=== PATIENT | female | born 1940 | race Caucasian/White ===

== ENCOUNTER 2024-07-11 19:40 | Inpatient (IN) | payer MEDICARE, SELFPAY ==
--- NOTE | ~2024-07-11 | CT_ITS ---
CTA chest PE protocol Ordering provider: Shashi Shipley MD History: 84 years Female with . sob, hypoxia . Comparison: None. Technique: CT angiogram chest was performed following timed intravenous injection of contrast. Thin s lice axial images and reformatted coronal images were obtained. Three dimensional reformatted images of the chest were also obtained using a [employer] workstation. . Automated exposure control and iterati ve reconstruction technique were employed. The dose-length product was 909.81 mGy-cm. 100 mL Omnipaqu e 350 was given IV. Findings: PULMONARY ARTERIES: No pulmonary embolus. VISUALIZED THORACIC INLET: Normal. MEDIASTINUM: Aorta/coronary arteries: Mild atheromatous disease. Heart/other: The heart is not enlarged. Lymph nodes: No mediastinal or hilar adenopathy. LUNGS: No pulmonary nodules or masses. No infiltrates or effusions. No pneumothorax. VISUALIZED UPPER ABDOMEN: Cholelithiasis. Otherwise, the visualized upper abdomen is normal. MUSCULOSKELETAL: Soft tissues: The superficial soft tissues are normal. Bones: Compression fracture of T7 and T11 vertebra is noted. T7 fracture is most likely acute. Verteb roplasty of T12 is noted with compression fracture. Age appropriate degenerative changes of the spine . Healing left ninth rib fracture is noted. Fracture of the left humerus proximal metaphysis. Deform ity of the left glenoid cavity. IMPRESSION: 1. No pulmonary embolism. 2. No acute cardiopulmonary pathology. 3. Cholelithiasis. 4. Healing left ninth rib fracture. 5. Highly suggestive acute fracture of the T7. 6. Fracture left proximal humerus. Reviewed, dictated and finalized at location A. TATION WORKER CLEANING MACHINERY
--- NOTE | ~2024-07-11 | XR_ITS ---
XR chest 1V portable Ordering provider: Shashi Shipley MD History: 84 years Female with . SOB . Comparison: None. FINDINGS: MEDIASTINUM: The cardiac silhouette is slightly enlarged. Congestive jm. LUNGS: No effusions or pneumothorax. Bilateral interstitial changes suggestive of pneumonitis versus edema. OTHER: Fracture in the left proximal humerus is noted which may be pathological. Clinical correlation advised. No free air under the diaphragm. IMPRESSION: Cardiomegaly with bilateral interstitial thickening suggestive of pneumonitis versus edema. Fracture in the left proximal humerus. Reviewed, dictated and finalized at location A. WASHING MACHINE TENDER IMPRESSION: Cardiomegaly with bilateral interstitial thickening suggestive of pneumonitis v ersus edema. Fracture in the left proximal humerus.
--- NOTE | ~2024-07-11 | XR_ITS ---
Left Shoulder Technique: AP and scapular Y views were obtained. Clinical History: Proximal humeral fracture Findings: There is a comminuted fracture of the surgical neck of left humerus, probably subacute, wit h probable some early callus formation present. There is significant displacement of the major distal fracture fragment by at least one full shaft width. There is mild AC joint degenerative change and m ild glenohumeral joint degenerative change.. Soft tissues are unremarkable. Impression: Comminuted, displaced, probable subacute fracture of the surgical neck of the left humerus. Reviewed, dictated and finalized at location M. LE HRMS CONSULTANT Impression: Comminuted, displaced, probable subacute fracture of the surgical neck of the l eft humerus.
--- NOTE | ~2024-07-11 | CT_ITS ---
EXAMINATION: CT BRAIN W/O DATE: 07/12/2024 04:27 INDICATION: Altered mental status TECHNIQUE: Computed tomography (CT) of the head was performed without intravenous contrast. The dose- length product was 681.00 mGy-cm. Automated exposure control and iterative reconstruction technique w ere employed. COMPARISON: No prior studies for comparison. FINDINGS: Generalized atrophy. There are scattered mild periventricular and subcortical white matter changes, most likely related to small vessel ischemic disease (microangiopathy). Basilar cisterns are patent. No acute intracranial hemorrhage, infarction, mass or mass effect. There is pneumatization o f the paranasal sinuses and mastoids without significant mucosal thickening. No depressed skull fract ures. No ventriculomegaly or midline shift. Midline sagittal images demonstrate a normal corpus callosum, c raniovertebral junction and sella turcica. Basilar cisterns are patent. Paranasal sinuses and mastoids are pneumatized. No depressed skull fractures. IMPRESSION: 1. No acute intracranial abnormality. Reviewed, dictated and finalized at location A. MOUNTER
[2024-07-11 19:46] VITALS: BP 101/48; PULSE 71; RESP 14; O2SAT 98
--- NOTE | 2024-07-11 20:55 | ECG_ITS ---
Test Date: 2024-07-11 23:47:29 Measurements Intervals [place] Rate: 79 P: 73 MN: 166 QRS: 68 QRSD: 90 T: 58 QT: 348 QTc: 401 Interpretive Statements SINUS RHYTHM EARLY PRECORDIAL R/S TRANSITION BASELINE ARTIFACT- I, II, III, AVR, AVL, AVF, V1-V6 BORDERLINE ECG No previous ECG available for comparison Electronically Signed On 07-12-2024 07:15:29 MEDICAL OFFICE REP by Davis Rey D.O.
[2024-07-11 21:00] VITALS: O2SAT 96
--- OUTSIDE RECORDS SUMMARY | 2024-07-11 21:20 | XMS_ITS | Data Portability ---
Author Organization [facility], [facility] Address [address] [address] Care Team Providers Care Photo Engraver Name Role Phone CHRISTINE GONZALEZ Primary Care Provider Unavailabl e Assessment No assessment recorded. Plan of Treatment Reminders Order Date Submit Date Provider Last Modified By Organization Details Last Modified Time Details Appointments None recorded. Lab vitamin D, 25-hydrox y, total, serum - Non-Fasti ng [place] [facility], [address], [place], [address], 9 20:01:37 testoster one, free, serum - [place]Fast[place] ng [place] [facility], [address], [place], [address], 9 20:01:38 testoster one, total, serum - Non-Fasti ng [place] [facility], [address], [place], [address], 9 20:01:37 CBC w/ auto diff [facility], [address], [place], [address], 9 20:01:37 Referral None recorded. Procedures None recorded. Surgeries None recorded. Imaging None recorded. Medication Orders None recorded. Patient TargetsNo targets recorded. Patient InstructionsNo instructions recorded. Reason for Referral None Reported. Results Created Date Observation Date Name Description Value Unit Range Abnormal Flag Note LastModifiedBy Organization Detail LastModifiedTime 09/01/1909/03/2018 CBC w/ auto diff white blood cell count 6.8 thous and/u L 3.8-10 .8 normal Not Available [address], [address], 09/03/2018 20:01:36 09/01/19 19 09/03/2018 CBC w/ auto diff red blood cell count 3.91 luba on/uL 3.80-5 .10 normal Not Available [address], [address], 09/03/2018 20:01:36 09/01/19 19 09/03/2018 CBC w/ auto diff hemoglobin 12.1 g/dL 11.7-1 5.5 normal Not Available [address], [address], 09/03/2018 20:01:36 09/01/1909/03/2018 CBC w/ auto diff hematocrit 37.6 % 35.0-4 5.0 normal Not Available [address], [address], 09/03/2018 20:01:36 09/01/1909/03/2018 CBC w/ auto diff MCV 96.2 fL 80.0-1 00.0 normal Not Available [address], [address], 09/03/2018 20:01:36 09/01/1909/03/2018 CBC w/ auto diff MCH 30.9 pg 27.0-3 3.0 normal Not Available [address], [address], 09/03/2018 20:01:36 09/01/1909/03/2018 CBC w/ auto diff MCHC 32.2 g/dL 32.0-3 6.0 normal Not Available [address], [address], 09/03/2018 20:01:36 09/01/19 19 09/03/2018 CBC w/ auto diff RDW 13.1 % 11.0-1 5.0 normal Not Available [address], [address], 09/03/2018 20:01:36 09/01/19 19 09/03/2018 CBC w/ auto diff platelet count 251 thous and/u L 140-40 0 normal Not Available [address], [address], 09/03/2018 20:01:36 09/01/19 19 09/03/2018 CBC w/ auto diff MPV 10.0 fL 7.5-12 .5 normal Not Available [address], [address], 09/03/2018 20:01:36 09/01/19 19 09/03/2018 CBC w/ auto diff absolute neutrophils 4556 cells /uL 1500-7 800 normal Not Available [address], [address], 09/03/2018 20:01:36 09/01/19 19 09/03/2018 CBC w/ auto diff absolute lymphocytes 1523 cells /uL 850-39 00 normal Not Available [address], [address], 09/03/2018 20:01:36 09/01/19 19 09/03/2018 CBC w/ auto diff absolute monocytes 551 cells /uL 200-95 0 normal Not Available [address], [address], 09/03/2018 20:01:36 09/01/19 19 09/03/2018 CBC w/ auto diff absolute eosinophils 163 cells /uL 15-500 normal Not Available [address] [place], [address], 09/03/2018 20:01:36 09/01/1909/03/2018 CBC w/ auto diff absolute basophils 7 cells /uL 0-200 normal Not Available [address] [place], [address], 09/03/2018 20:01:36 09/01/1909/03/2018 CBC w/ auto diff neutrophils 67 % normal Not Available [address] [place], [address], 09/03/2018 20:01:36 09/01/1909/03/2018 CBC w/ auto diff lymphocytes 22.4 % normal Not Available [address] [place], [address], 09/03/2018 20:01:36 09/01/1909/03/2018 CBC w/ auto diff monocytes 8.1 % normal Not Available [address] [place], [address], 09/03/2018 20:01:36 09/01/1909/03/2018 CBC w/ auto diff eosinophils 2.4 % normal Not Available [address] [place], [address], 09/03/2018 20:01:36 09/01/1909/03/2018 CBC w/ auto diff basophils 0.1 % normal Not Available [address] [place], [address], 09/03/2018 20:01:36 09/01/1909/03/2018 vitam in D, 25-hy droxy , total , serum vitamin D,25-oh,tota l,ia 47 NG/mL 30-100 normal Vitam in D Statu s 25-OH Vitam in D: Defic iency : <20 ng/mL Insuf ficie ncy: 20 - 29 ng/mL Optim al: > or = 30 ng/mL For 25-OH Vitam in D testi ng on patie nts on D2-mc pplem entat ion and patie nts for whom quant itati on of D2 and D3 fract ions is requi red, the [facility] Ass[facility] eD(TM ) 25-OH VIT D, (D2,D 3), LC/MS /MS is recom kenny d: order code 24176 (caryl ents >2yrs ). For more infor maribell castaneda on this test, go to: http: //[facility] tana [email or web address].petr stdia gnost ics.c om/fa q/FAQ 163 (This link is being provi ded for infor matio nal/e ducat ional purpo ses only. ) Not Available [facility] [address] [place], [address], 09/03/2018 20:01:37 09/01/19 19 09/03/2018 testo stero ne, total , serum testosterone , total, MS 10 NG/dL 2-45 Agustin a from J Clin Inves t 1974: 53:81 9-828 and J Clin Endoc rinol Metab 1973; 36:11 32-11 42. Men with clini edith signi fican t hypog onada l sympt oms and testo stero ne value s repea tedly in the range of the 200-3 00 ng/dL or less, may benef it from testo stero ne treat ment after adequ ate risk and benef its couns eling . For addit ional infor kelsey encinas e refer to http: //[facility] tana [email or web address].petr stdia gnost ics.c om/fa q/FAQ 165 (This link is being provi ded for infor matio nal/ educa lorelei l purpo ses only. ) This test was devel oped and its aaron tical perfo rmanc e sandro cteri stics have been deter mined by [facility] Pablo Yeei gibran Garrido cia. It has not been clear ed or appro myrna by the [place] Food and Drug Admin istra tion. This assay has been valid ated pursu ant to the CLIA regul ation s and is used for clini david purpo ses. Not Available [facility] [address] [place], [address], 09/03/2018 20:01:37 09/01/19 19 09/03/2018 testo stero ne, free, serum testosterone , free 0.9 pg/mL 0.3-5. 0 This test was devfridea booth and its aaron tical perfo rmanc e sandro cteri stics have been deter mined by [facility] Pablo Garrido cia. It has not been clear ed or appro myrna by the Food and Drug Admin istra tion. This assay has been valid ated pursu ant to the CLIA regul ation s and is used for clini david purpo ses. Not Available [facility] [address], [place], [address], 09/03/2018 20:01:38 Result Notes None recorded. Problems Name Problem SNOMED Code Status Onset Date Resolution Date Notes Provider Name and Address Organization Details Recorded Time Arthritis 7915846 Active 2018 Jacqueline Mueller [facility], [employer] 9 13:27:09 Hypertensive disorder 68716517 Active 2018 Jacqueline venegas [employer], [employer] 9 13:27:16 Problem Notes None recorded. Procedures Surgical History Date Name Laterality Status Provider Name and Address Organization Details Recorded Time 9 Generic Procedure completed RONALD LARSON [address], [place], [address], [employer] [employer] 08/23/2018 15:00:00 Imaging Results None recorded. Procedure Notes None recorded. Medical Equipment None Reported. Allergies No known drug allergies Medications Name Sig Start Date Stop Date Status Note LastModified by Organization Details LastModified Time meloxicam 15 mg tabs active Not Available Not Available Not Available amlodipine besylate 5 mg tabs active Not Available Not Available Not Available omeprazole 40 mg cpdr active Not Available Not Available N ot Available celecoxib 200 mg caps active Not Available Not Available Not Available sulindac 200 mg tabs active Not Available Not Available Not Available atorvastatin calcium 20 mg tabs active Not Available Not Available Not Available levothyroxin e sodium 75 mcg tabs active Not Available Not Available Not Available amlodipine besylate 2.5 mg tabs active Not Available Not Available Not Available citalopram hydrobromide 20 mg tabs active Not Available Not Available N ot Available sulfamethoxa zole/trimeth oprim ds 800-160 mg tabs active Not Available Not Available Not Available hydrocodone/ acetaminophe n 5-325 mgtabs active Not Available Not Available Not Available tramadol hcl 50 mg tabs active Not Available Not Available N ot Available diazepam 10 mg tabs active Not Available Not Available Not Available metoprolol succinate er 50 mg tb24 active Not Available Not Available N ot Available atorvastatin calcium 10 mg tabs active Not Available Not Available Not Available hydrocodone 5 mg-acetamino phen 325 mg tablet Take 1 tablet every 6 hours by oral route as needed for 7 days. 2018 active Not Available Not Available Not Avai lable diazepam 10 mg tablet Take 1 tablet(s) 30 mins PRIOR to appointment PRN and repeat as directed by physician. 2018 active Not Available Not Available Not Avai lable Vitals Date Recorded Heart rate Body height Body mass index (BMI) Body weight Systolic blood pressure Diastolic blood pressure Provider Name and Address Organization Details Last Updated DateTime 9 66 /min 157.48 cm 45.7 kg/m2 667164. 09 g 160 mm[Hg] 82 mm[Hg] [facility] 9 13:04:24 Social History None recorded. Functional Status None recorded. Mental Status None recorded. Family History Nothing Reported. Medical History No medical history recorded. Gynecological HistoryNo gynecological history recorded. Obstetrics History GPAL:G 0 P 0 0 0 0 Past Encounters Encounter ID Performer Location Encounter Start Date Encounter Closed Date Diagnosis/Indication Diagnosis SNOMED-CT Code Diagnosis ICD10 Code Diagnosis Note [id number] RONALD LARSON [facility] [address] [facility] ,[address] [facility] [place] [id number] 08/23/2018 12:51:29 08/23/2018 14:00:12 Knee pain 35656719 M25.561 Malaise and fatigue 2717 [address] R53.83 Z01.812 R53.81 M89.9 M94.9 Osteoarthr itis of right knee joint 9505120316 93507 M17.11 Localized, primary osteoarthritis of the ankle and/or foot 880442628 M19.079 Osteoarthr itis of foot joint 569004946 M19.079 At today's office visit the patient's diagnosis and treatment options were discussed in great detail. The patient was provided with informatio n to make an informativ e decision on the next steps for treatment. The patient has tried several conservati ve measures including but not limited to PT, rest, ice, and NSAIDs with no beneficial relief. Given the imaging results and the duration of the patient's symptoms I would recommend BMAC with fat as they are an excellent candidate. We discussed the need for PRP at [facility] the 12-week myrna. The risk and benefits were discussed with the patient as well as functional and pain improvemen t outcomes. The procedure was discussed in detail as well as the recovery period. We discussed screening with R3 and its importance . We also discussed obtaining labs to ensure the patient is optimized for maximal results. I also discussed other conservati ve options. The patients case and treatment plan were reviewed in detail with Dr. Aldridge. PLAN: [facility]/fat to right knee (lateral tibial plateau fracture, medial OA, pes and IT pain) right ankle ( osteoarthr itis of the tibiotalar joint, subtalar joint, talonavicu lar joint and navicular cuboid) All questions were answered, the patient understood the treatment plan. Health Concerns Section Related Observation LastModified by Organization Detai ls LastModified Time None Recorded Concern Status LastModified by Organization Details LastModified Time None Recorded Advance Directives Directive None Recorded Payers Encounter Date Sequence Insurance Name Policy Number Policy Barone Covered Member ID Barone Member ID Guarantor Name 08/23/2018 1 [place]ICARE [place]: [id number] Sherri Anne [id number] Sherri Anne 08/23/2018 2 [employer] (MEDICARE SUPPLEMENT) Sherri Anne [id number] Sherri Anne Notes Date Note Type Note Provider Name and Address Organization Details Recorded Time 08/23/2018 text/html 78-year-old fema le who comes in today complaining of right ankle pain and right knee pain has been ongoing for the last 2 years. She had an injury to the right knee 11 years ago which she stain sustained a lateral tibial plateau fracture. She did well until approximately 2 years ago and the pain started to progressively get worse. In regards to the knee she has medial-sided knee pain that is constant aching and sharp. She rates her pain as an 8/10. She states that she also experiences stiffness and giving way of the knee she states that her knee bothers her all the time when she walks and improves when she sits. She has tried rest, anti-inflammatories, Tylenol, pain medications and corticosteroid injections which originally helped her however the last couple have not helped her for very long. She states she has gotten about 1 month relief out of corticosteroid injections the last of which were in February of 2018. She also has pain in the right ankle. The pain in her right ankle she states is progressively getting worse. She states the pain is constant, aching and sharp. She also experiences weakness and stiffness in the ankle and hurts her most whenever she stands and walks and is improved whenever she sits. She has tried corticosteroid injections also which once again not been very beneficial. She has noticed decreased range of motion. She rates her pain in the ankles an 8/10. RONALD LARSON [address], [place], [address], [facility], [facility] 08/23/2018 16:23:01 OBGyn Episode No OBEpisode recorded.
--- OUTSIDE RECORDS SUMMARY | 2024-07-11 21:20 | XMS_ITS | Clinical Summary ---
Author Organization [facility] Address [address] [place] [address] Care Team Providers Care Manager Local Name Role Phone Jeet Mirza MD Unavailable Mauri Cannon MD Unavailable Kevin Will MD PhD Unavailable + Benji Stark MD Unavailable Miscellaneous, Not In File Primary Care Provider Unavailable Allergies No known active allergies Medications metoprolol XL (TOPROL-XL) 50 mg 24 hr tablet take 1 Tablet by ORAL route every day 90 3 6 Active aspirin 81 mg tablet take 1 tablet by oral route every day 0 [address] (VOLTAREN) 50 mg EC tablet Take 1 tablet (50 mg total) by mouth 3 (three) times a day 0 9 Active gabapentin (NEURONTIN) 100 mg capsule Take 2 capsules (200 mg total) by mouth 2 (two) times a day 0 Active cyanocobalamin (Vitamin B-12) 1,000 mcg tablet Take 1 tablet (1,000 mcg total) by mouth every morning Active furosemide (LASIX) 20 mg tablet Take 1 tablet (20 mg total) by mouth daily 2 Active levothyroxine (SYNTHROID) 75 mcg tablet Take 1 tablet (75 mcg total) by mouth daily 90 tablet 3 3 Active vibegron 75 mg tablet Take 75 mg by mouth daily 3 Active amLODIPine (NORVASC) 5 mg tablet TAKE 1 TABLET(5 MG) BY MOUTH DAILY 90 tablet 3 4 Active omeprazole (PriLOSEC) 40 mg capsule TAKE 1 CAPSULE(40 MG) BY MOUTH DAILY 90 capsule 3 4 Active cholecalciferol (Vitamin D3) 400 unit capsule daily Active spironolactone (ALDACTONE) 25 mg tablet Take 1 tablet (25 mg total) by mouth daily 4 Active vit A,C and B-omsfwu-hudxbb ls (OCUVITE with LUTEIN) 300 mcg-200 mg-27 mg-2 mg tablet Take 1 tablet by mouth 2 (two) times a day Active atorvastatin (LIPITOR) 10 mg tablet TAKE 1 TABLET(10 MG) BY MOUTH DAILY 100 tablet [address] (CYMBALTA) 60 mg capsule TAKE 1 CAPSULE(60 MG) BY MOUTH DAILY 100 capsule 4 Active FeroSuL 325 mg (65 mg iron) tablet TAKE 1 TABLET BY MOUTH DAILY WITH BREAKFAST 30 tablet 4 Active oxyCODONE (ROXICODONE) 5 mg immediate release tabletIndicatio ns:Pain Take 1 tablet (5 mg total) by mouth every 4 (four) hours as needed for pain 15 tablet 5 Active acetaminophen (TYLENOL) 325 mg tablet Take 2 tablets (650 mg total) by mouth every 6 (six) hours 5 06/18/19 Active Problems Problem Noted Date Diagnosed Date Osteopenia of lumbar spine 05/17/2024 Chronic arthritis 05/17/2024 Wound of right leg 05/17/2024 BMI 45.0-49.9, adult 05/17/2024 Fracture of surgical neck of left humerus with n onunion 05/17/2024 Macrocytic anemia 05/17/2024 Compression fracture of body of thoracic vertebr a (CMS/HCC) 05/16/2024 Chest wall muscle strain, initial encounter 04/15 Strain of thoracic back region 05/09/2024 Lumbar strain, initial encounter 05/09/2024 Fall, initial encounter 11/07/2023 Humerus fracture 11/07/2023 Leukocytosis 11/07/2023 Pulmonary nodules 08/28/2023 Assessment & Plan (08/28/2023 2:20 PM CDT): Small bilaterally Never a smoker No need for follow-up Abnormal breast finding 08/28/2023 Assessment & Plan (08/28/2023 2:20 PM CDT): We have discussed the abnormality identified on her CT chest She will call primary care for further follow-up Pulmonary hypertension 08/28/2023 Assessment & Plan (08/28/2023 2:20 PM CDT): Likely secondary to group 2 disease No evidence of pulmonary diagnois with normal pulmonary function testing, negative sleep study, normal CT chest I have recommended she follow-up with her head bookkeeper for repeat echocardiogram Chronic left shoulder pain 08/10/2023 Assessment & Plan (08/10/2023 12:08 PM CDT): Discussed options including x-ray, physical therapy, referral to laboratory specialist. She declines referral today. She is agreeable to x-ray and therapy. She can not drive due to macular degeneration. Requires assistance of another person to leave the home. Will order home health physical therapy to evaluate and treat. Class 3 severe obesity due t o excess calories with serious comorbidity and body mass index (BMI) of 45.0 to 49.9 in adult 08/10/2023 Assessment & Plan (08/10/2023 12:08 PM CDT): Encourage heart healthy diet and chair yoga. Pure hypercholesterolemia 03/27/2023 Osteoarthritis of left subtalar joint 03/27/2023 Nonrheumatic aortic valve stenosis 03/27/2023 Overview (03/27/2023): 03/29 echo: EF 70-75%, grade 1 diastolic dysfunction, mild , Vmax 2.6, trace AI, mild TR, RVSP 45 08/29 echo: EF 65%, diastolic dysfunction with increased LAP, mild , Vmax 2.8, gradients 31/17 mmHg, GIRISH 1.1 cm , mild MR, RVSP 36 5/20 echo: EF 60%, mild SANDEEP, moderate , Vmax 3.5, gradients 49/28 mmHg, VTI ratio 0.28, trace AI/MR/TR, RVSP 39, mild MAC, mild-moderate non-mobile plaque in arch Neuropathy 03/27/2023 Hx of hysterectomy 03/27/2023 SHARP (dyspnea on exertion) 03/27/2023 DJD (degenerative joint disease) 03/27/2023 Diastolic dysfunction 03/27/2023 Chronic diastolic heart failure 03/27/2023 Low ferritin level 08/02/2022 Recurrent major depression 07/25/2022 Pseudophakia of both eyes 04/23/2021 Assessment & Plan (03/14/2024 3:18 PM CDT): Stable. Observe. Assessment & Plan (08/09/2023 5:04 PM CDT): Stable. Observe. Assessment & Plan (03/08/2023 9:45 AM CDT): Stable. Observe. Assessment & Plan (06/30/2022 4:31 PM AIR TRAFFIC CONTROL OPERATOR): Stable. Observe. Assessment & Plan (02/10/2022 3:46 PM CDT): s/p CE/PCIOL OD - Doing well with progressive add. Strict monocular precautions. - Reviewed signs/symptoms endophthalmitis, RT/RD; patient to call immediately if any worsening vision, pain, redness, flashes/floaters/curtains. - monocular precautions. F/u in 6 months for DFE -continued scheduled f/u with retina team Assessment & Plan (07/08/2021 9:14 AM AIR TRAFFIC CONTROL OPERATOR): POM #2 s/p CE/PCIOL OD - Doing well, patient likely needing stronger near add with progressive lens and higher add segment. Reprinted MRx. - Reviewed signs/symptoms endophthalmitis, RT/RD; patient to call immediately if any worsening vision, pain, redness, flashes/floaters/curtains. - monocular precautions. F/u in 6 months for DFE Assessment & Plan (06/04/2021 9:50 AM AIR TRAFFIC CONTROL OPERATOR): Recent CEIOL OD with Dr. Stark 04/2021 Doing well with vision improvement Assessment & Plan (05/26/2021 10:11 AM AIR TRAFFIC CONTROL OPERATOR): POM #1 s/p CE/PCIOL OD - Doing well, patient happy with vision but with light sensitivity, does not appear to have any rebound inflammation. Will treat surface dryness and f/u in 6 weeks to assess for improvement - finish pred forte taper - Reviewed signs/symptoms endophthalmitis, RT/RD; patient to call immediately if any worsening vision, pain, redness, flashes/floaters/curtains. - updated MRx today Assessment & Plan (04/28/2021 3:41 PM AIR TRAFFIC CONTROL OPERATOR): POW #1 s/p CE/PCIOL OD - Doing well - D/C ofloxacin in 1 week - Taper prednisolone QID -> TID -> BID -> qday, per week - Reviewed signs/symptoms endophthalmitis, RT/RD; patient to call immediately if any worsening vision, pain, redness, flashes/floaters/curtains. - Avoid lifting/bending/swimming for one more week. Protective eyewear during day. Okay to discontinue Clark shield at night. - RTC 1 month for DFEx, MRx Assessment & Plan (04/23/2021 2:29 PM AIR TRAFFIC CONTROL OPERATOR): POD #1 s/p CE/PCIOL OD - Doing well, VA will be limited by optic neuropathy but still has central corneal edema - Prednisolone QID OD - Ofloxacin QID OD - Reviewed signs/symptoms endophthalmitis, RT/RD; patient to call immediately if any worsening vision, pain, redness, flashes/floaters/curtains - No lifting/bending/swimming. Clark shield while sleeping, protective eyewear during day. - RTC 1 week Age-related macular degeneration, dry, right eye 09/18/2020 Assessment & Plan (03/14/2024 3:17 PM CDT): Stable OCT. Unfortunately, acuity has declined some from last visit. No exudative disease present. Repeat DFE q6mos with mac OCT. Low vision referral Assessment & Plan (08/09/2023 5:02 PM CDT): Stable exam and OCT today. No signs of active exudative disease. Repeat in 6 mos. Assessment & Plan (03/08/2023 9:44 AM CDT): Stable on exam and OCT today. Monocular precautions. Monocular self monitoring. Continue areds. F/u in 6 months. Will complete drivers license field and mac OCT at f/u. Assessment & Plan (06/30/2022 4:22 PM AIR TRAFFIC CONTROL OPERATOR): Stable on exam and OCT today. Continue to follow q4-6 mos. Sooner prn. Assessment & Plan (06/04/2021 9:49 AM AIR TRAFFIC CONTROL OPERATOR): Stable, remains dry observe Assessment & Plan (11/27/2020 10:20 AM CDT): Stable exam and OCT today. Limited vision due to NAION. Dry age-related macular degeneration (AMD) right eye (OD) stable. MInimal, stable IRF on OCT OS. Will monitor. Seeing Dr. Dumont for NAION. Assessment & Plan (09/18/2020 10:53 AM CDT): Dry AMD OD with h/o ION OD Vision okay today, no fluid on OCT Continue to monitor She may consider areds micro nutrient supplementation after she sees in the tutoring clinician. Exudative age-related macular degeneration of le ft eye 09/18/2020 Assessment & Plan (03/14/2024 3:17 PM CDT): Limited visual potential. Monocular precautions reviewed. Assessment & Plan (08/09/2023 5:03 PM CDT): Stable without signs of active exudative disease today. Assessment & Plan (03/08/2023 9:44 AM CDT): No recurrence of exudative disease on OCT today. Observe. Monocular precautions. Discussed good lighting to help with reading tasks. Pt plans to get updated lighting in her reading spot at home. Assessment & Plan (06/30/2022 4:22 PM AIR TRAFFIC CONTROL OPERATOR): Stable on exam and OCT. Assessment & Plan (12/03/2021 10:37 AM CDT): Stable, limiting vision OS especially No fluid now, one injection remote Assessment & Plan (06/04/2021 9:59 AM AIR TRAFFIC CONTROL OPERATOR): Stable today with possibly minimal IRF Continue observation Visual prognosis in the left eye is poor due to the optic neuropathy and we have a p.r.n. approach for this eye. Her cataract surgeries look really good. Assessment & Plan (11/27/2020 10:20 AM CDT): Stable exam and OCT today. Limited vision due to NAION. Dry age-related macular degeneration (AMD) right eye (OD) stable. MInimal, stable IRF on OCT OS. Will monitor. Seeing Dr. Dumont for NAION. Assessment & Plan (09/18/2020 10:49 AM CDT): Pt states she had CE/IOL OD in 01/[address] Mirza, she noticed sudden onset vision loss in 06/2020. She was seen at [facility] diagnosed with exduative AMD OS, treated with intravitreal anti-VEGF. She states there was resolution of fluid but vision remained poor. Today her vision OS is significantly decreased with optic nerve pallor, OCT with inner retinal thinning, significant GCC loss without IRF/SRF. Small CDR OU with crowded disc appearance. Exam findings and imaging are concerning for optic neuropathy- may be sequential NAION OS given history of similar event OD. Would recommend evaluation with Dr. Dumont (Neuro-ophthalmology). Information for Low vision also provided. RTC 2 months to assess for recurrent fluid Ischemic optic neuropathy of both eyes Assessment & Plan (03/14/2024 3:18 PM CDT): Visual field limited due to hx of NAION OU. Long discussion regarding driving and likely not legal to drive based on last field by Dr. Dumont in 2020. Pt understands that she's not legal to drive. Low vision referral. Assessment & Plan (08/09/2023 5:04 PM CDT): Vision limited due to NAION OU. Long discussion regarding driving and likely not legal to drive based on last field by Dr. Dumont in 2020. Needs esterman field to confirm. Pt had difficulty with positioning today. Will re-attempt at f/u. Pt understands that she's likely not legal to drive. Will discuss further at f/u. Monocular precautions given limited visual potential OS. Assessment & Plan (03/08/2023 9:45 AM CDT): Hx of sequential naion with significantly reduced acuity OS and field OU. Offered consult with [facility] low vision clinic but pt defers for now. Feels ADLs are being met. Struggles with reading fluency. Discussed good lighting. F/u in 6 mos for drivers license VF. Assessment & Plan (06/30/2022 4:30 PM AIR TRAFFIC CONTROL OPERATOR): Hx of sequential naion with significantly reduced acuity OS and field OU. Offered consult with [facility] low vision clinic but pt defers for now. Feels ADLs are being met. Struggles with reading fluency. Discussed good lighting. Assessment & Plan (06/04/2021 9:50 AM AIR TRAFFIC CONTROL OPERATOR): Stable, limiting vision OS especially Previously seen by Dr. Dumont and now plan for observation Assessment & Plan (01/21/2021 8:27 AM CDT): -patient still needs to obtain nutritional deficiency labs. Has scheduled follow up with Dr. Dumont Assessment & Plan (11/27/2020 10:44 AM CDT): Dr. Dumont has commented on a small pituitary microadenoma or cyst and she is following with her internists and might get serial MRIs in the future for monitoring of these lesions. I am pleased that Dr. Dumont was able to evaluate her Assessment & Plan (09/18/2020 10:54 AM CDT): Her episode in the right eye was several years ago and the left eye more recently. Given the bilateral optic neuropathy of the ischemic nature, I will have her see Dr. Dumont in the near future. She does not have any symptomatology on either of these episodes suggestive of giant cell arteritis. She is hypertensive and is currently on medication. Multiple thyroid nodules 06/03/2020 Assessment & Plan (06/03/2020 5:52 PM AIR TRAFFIC CONTROL OPERATOR): I looked at Mrs. Anne 's thyroid under ultrasound today I compared these images with the ones that I did in May 2019 I do not see any significant changes in the size of these small nodules, in each lobe. I would not see the need for an FNA biopsy at this time. Discussed this with the patient and she agrees I will see her again in a year Cardiac risk counseling 04/16/2020 At risk for acute ischemic cardiac event 020 Aortic arch atherosclerosis 10/10/2019 Age-related osteoporosis wit hout current pathological fracture 02/06/2019 Gastro-esophageal reflux disease without esophag itis 02/06/2019 Vitamin D deficiency 02/06/2019 Closed wedge compression fracture of T7 vertebra 02/06/2019 Spinal stenosis, lumbar mathew on, without neurogenic claudication 02/06/2019 Radiculopathy, lumbar region 02/06/2019 Moderate single current epis ode of major depressive disorder 02/06/2019 Intervertebral disc stenosis of neural canal of lumbar region 02/06/2019 History of loop recorder 09/27/2018 Primary osteoarthritis of both knees 08/21/2017 Mixed hyperlipidemia 07/27/2017 Assessment & Plan (02/06/2019 1:21 PM CDT): - Home atorvastatin Assessment & Plan (02/05/2019 2:40 PM CDT): - Home atorvastatin Assessment & Plan (02/04/2019 4:47 PM CDT): - Home atorvastatin Assessment & Plan (02/03/2019 10:47 AM CDT): - Home atorva Assessment & Plan (02/02/2019 8:59 AM CDT): - Home atorva Assessment & Plan (02/01/2019 10:45 PM CDT): - Home atorva Morbid obesity with BMI of 40.0-44.9, adult 07/13 Assessment & Plan (06/06/2019 10:01 AM AIR TRAFFIC CONTROL OPERATOR): Benefits of weight loss discussed. Reviewed recommendations for daily intake & activity 20-30 minutes/day. She was counseled on the importance of maintaining a healthy weight and the risks of obesity. Weight loss recommended. I have recommended beginning daily aerobic activity. Patient was encouraged to start at a comfortable pace and distance and increase as tolerated. I encouraged decrease caloric restriction in order to promote weight loss. I recommended calorie tracking carina, my fitness Pal, which is a free download on a smart phone. Thyroid nodule 01/31/2017 Assessment & Plan (02/22/2022 4:05 PM CDT): Thyroid ultrasound done today does not show any changes in size or appearance of the right nodule No further follow-up will be necessary Assessment & Plan (02/22/2022 9:57 AM CDT): I looked at Mrs Anne's thyroid under ultrasound The described nodule, in the upper right lobe, is around 1.2 cm in its largest dimension, hypoechoic with without any microcalcification. Given the long standing of this nodule and tis relatively small size I explained to Ms. Anne that the risk of a malignancy is very small. I gave her 2 options. The 1st would be to do an FNA biopsy now and if benign just forget about this nodule or the other is to continue monitoring for another 1 or 2 years. She opts for the latter I wiill see her in a year here in my office Prediabetes 06/17/2015 Overview (02/04/2019): Overview: 06/30 glucose 113 (fasting) Osteoporosis 09/28/2013 Overview (08/18/2016): OSTEOPOROSIS NOS HTN (hypertension) 09/28/2013 Overview (08/18/2016): BENIGN HYPERTENSION Assessment & Plan (08/10/2023 12:07 PM CDT): Normotensive. Continue amlodipine, metoprolol. Continue spironolactone/hydrochlorothiazide. Will continue to monitor. Assessment & Plan (02/06/2019 1:19 PM CDT): - Cont home amlodipine and metoprolol XL Assessment & Plan (02/05/2019 2:37 PM CDT): - Cont home amlodipine and metoprolol XL Assessment & Plan (02/04/2019 4:44 PM CDT): - Cont home amlodipine and metoprolol XL Assessment & Plan (02/03/2019 10:47 AM CDT): - Cont home amlodipine and metop Assessment & Plan (02/02/2019 8:59 AM CDT): - Cont home amlodipine and metop Assessment & Plan (02/01/2019 10:44 PM CDT): - Cont home amlodipine and metop Disorder of intervertebral disc 04/18/2013 Overview (08/18/2016): Lumbar disc disease Hypothyroidism 04/18/2013 Overview (08/20/2016): Hypothyroid Assessment & Plan (02/21/2023 10:02 AM CDT): Chronic, well controlled Continue Levothyroxine, 75 mcg daily Assessment & Plan (02/22/2022 4:04 PM CDT): Continue levothyroxine 75 mcg daily Assessment & Plan (02/06/2019 1:19 PM CDT): - Home levothyroxine Assessment & Plan (02/05/2019 2:39 PM CDT): - Home levothyroxine Assessment & Plan (02/04/2019 4:44 PM CDT): - Home levothyroxine Assessment & Plan (02/03/2019 10:47 AM CDT): - Home levothyroxine Assessment & Plan (02/02/2019 8:59 AM CDT): - Home levothyroxine Assessment & Plan (02/01/2019 10:45 PM CDT): - Home levothyroxine Calculus of gallbladder 12/27/2011 Overview (08/20/2016): Gallstones Resolved Problems Problem Noted Date Diagnosed Date Resolved Date Combined forms of age-relate d cataract of right eye 09/18/2020 06/04/2021 Assessment & Plan (02/24/2021 11:34 AM CDT): Assessment and Plan 1. Visually Significant Cataract of the right eye, 3+ NS, monocular patient -discussed that vision potential on the right limited because of NAION and dry AMD. She does get to 20/30 with pinhole potential acuity at near. - R/B/A of surgery discussed in detail with patient including but not limited to infection, bleeding, persistent inflammation, diplopia, ptosis, macular edema, need for further surgeries or procedures, need for spectacle correction after surgery, possible loss of vision, possible loss of the eye, and risks of anesthesia. We discussed her visual field prior to surgery and that she may have more difficulty with lights after surgery. - The patient understands these risks and wishes to proceed. - Target refraction was discussed with the patient. We discussed near, distance, and monovision; we also discussed multifocal and toric lenses. Discussed possible glare/halo following multifocal lenses. Discussed The patient elected to target plano Planned Operation: CE/IOL of the right eye eye Time: 40 Anesthesia: MAC Local: topical Special equipment: consider trypan 23 Hr Stay?: No Preop meds: None Med Clearance: CPAP IOL Master: done today Additional perioperative testing/procedure needed?: Patient will attempt to meet with low vision prior to surgery. Okay to schedule . . Assessment & Plan (01/21/2021 8:25 AM CDT): Assessment and Plan 1. Visually Significant Cataract of the right eye, 3+ NS, monocular patient -discussed that vision potential on the right limited because of NAION and dry AMD - R/B/A of surgery discussed in detail with patient including but not limited to infection, bleeding, persistent inflammation, diplopia, ptosis, macular edema, need for further surgeries or procedures, need for spectacle correction after surgery, possible loss of vision, possible loss of the eye, and risks of anesthesia. -we will obtain records from Dr. Mirza to see if she has better documented VA after NAION episode, prior to development of visually significant catarat -patient will return to see me in 1 month for CARTER test and to discuss surgery again and lens choice. Emphasized strict monocular precautions with patient. . Assessment & Plan (11/27/2020 10:44 AM CDT): She sees better through a pinhole even though she has ischemic optic neuropathy and I feel that with cataract extraction the vision might improve. I will have her see Dr. Akers Assessment & Plan (09/18/2020 10:48 AM CDT): May be visually significant now that pt is functionally monocular. Requested that she discuss whether CE/IOL would be appropriate with her primary Insurance Account Assistant Dr. Mirza. Abscess of right thigh 06/06/201910/01 Assessment & Plan (06/06/2019 10:01 AM AIR TRAFFIC CONTROL OPERATOR): Healing well at this time. Patient instructed to keep area clean and dry. Notify office with absolutely any worsening symptoms. Patient and caregiver verbalized understanding agreed to plan of care at this time they will notify office with absolutely any changes. Abscess 05/23/2019 06/06/2019 Assessment & Plan (05/23/2019 1:09 PM AIR TRAFFIC CONTROL OPERATOR): Abscess to right medial thigh 2 x 3 cm trace serosanguineous drainage. No need for I & D at this time will begin course of bactrim DS BID x 10 due to location of abscess. Instructed to return in 1 week for reevaluation. Patient instructed to keep area clean and dry. Dressing changed in office today and wound culture sent. Notify office with absolutely any concerns including but not limited to fever, chills, increased redness, swelling or drainage. Patient verbalized understanding and agreed to plan of care at this time. Constipation 02/06/2019 06/06/2019 Assessment & Plan (02/06/2019 1:22 PM CDT): Secondary to opioid medications -Scheduled docusate, senna and miralax -Will give bisacodyl suppository & add on daily PRN enemas -Also PRN lactulose until BM YOUNG (acute kidney injury) 02/05/2019 Assessment & Plan (02/06/2019 1:19 PM CDT): Resolved, Baseline Cr ~0.8-1.00 and had rise to 1.37 on 02/05 -Suspect secondary to NSAID use due to low back pain -Avoid further NSAIDs in the future -Cr back to 0.95 this AM -CTM, renally dose meds Assessment & Plan (02/05/2019 2:39 PM CDT): Baseline Cr ~0.8-1.00 and had rise to 1.37 this AM, BUN 41 and urine output decreased overnight to 600 cc -Suspect secondary to NSAID use due to low back pain -Toradol d/c and will avoid further NSAIDs this admission -Will hydrate with 1 L NS today and repeat BMP around 13:00 -CTM, renally dose meds NSVT (nonsustained ventricular tachycardia) 02/04/2019 06/06/2019 Overview (02/04/2019): Overview: stress nuclear: 99% maximal heart rate, no ischemia, anterior attenuation, EF 51% 10/26 stress echo 3:49--94% maximal heart rate, no ischemia, hyperdynamic LVEF, PVCs 03/29 event recorder: VT vs AF/aberrancy by second hand report 04/28 EKG: SR at 72, normal ijntervals 07/28 stress echo 3:32--86% maximal heart rate, no ischemia, normal LVEF Intractable back pain 02/01/20192019 Assessment & Plan (02/06/2019 1:21 PM CDT): Recent T12 kyphoplasty. 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 Neuro intact. No cord issues - Ortho spine consulted -> nonoperative. - Scheduled APAP & gabapentin. PRN oxycodone - Gabapentin increased to 700 BID (in light of renal function). Oxycodone increased to 10 mg q4 hours PRN from 5 mg home dose - Pain is controlled when patient is lying down but still uncontrolled with ambulation/standing - Repeat flexion/extension films of T/L-spine without changes or new fractures - Pain management consulted, appreciate recommendations - S/p lidocaine infusion & Epidural spinal injections on 02/05 - No further procedures/interventions per pain management and patient's main hindrance to improvement is her resistance to get out of bed. Discussed how therapy was a large component of her pain control and she needs to be out of the bed for the majority of the day. She voices understanding and is wanting to work on therapy/walking more - PT/OT recommending SNF placement, plan to discharge to facility today - Scheduled bowel regimen Assessment & Plan (02/05/2019 2:40 PM CDT): Recent T12 kyphoplasty. 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 Neuro intact. No cord issues - Ortho spine consulted -> nonoperative. - Scheduled APAP & gabapentin. PRN oxycodone - Gabapentin increased to 700 BID (in light of renal function). Oxycodone increased to 10 mg q4 hours PRN from 5 mg home dose - Pain is controlled when patient is lying down but still uncontrolled with ambulation/standing - Repeat flexion/extension films of T/L-spine without changes or new fractures - Pain management consulted, appreciate recommendations -->started lidocaine infusion (02/04), likely to remain on 24 hours - Epidural spinal injections on 02/05 - PT/OT recommending SNF placement, social work consult for assistance - Scheduled bowel regimen Assessment & Plan (02/04/2019 4:47 PM CDT): Recent T12 kyphoplasty. 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 Neuro intact. No cord issues - Ortho spine consulted -> nonoperative. - Scheduled APAP & gabapentin. PRN toradol & oxycodone - Gabapentin increased to 700 BID (in light of renal function). Oxycodone increased to 10 mg q4 hours PRN from 5 mg home dose - Pain is controlled when patient is lying down but still uncontrolled with ambulation/standing - Repeat flexion/extension films of T/L-spine without changes or new fractures - Pain management consulted, appreciate recommendations -->plan to start lidocaine infusion today (02/04) & monitor for response. - Lidocaine level 24 hours after initiation of gtt - PT/OT recommending SNF placement, social work consult for assistance - Bowel regimen started today given increase use of opioids Assessment & Plan (02/03/2019 10:46 AM CDT): - Recent T12 kyphoplasty. 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 Neuro intact. No cord issues - Ortho spine -> nonoperative. - APAP, toradol, oxycodone, gabapentin, lidocaine patches. Gabapentin increased to 600 BID (in light of renal function). Oxycodone increased to 10 mg q4 hours PRN pain (patient's home dose). - Pain is controlled when patient is lying down but still uncontrolled with any type of movement including sitting. Per patient had difficulty working with therapy due to severe pain. - Pain management consulted, appreciate recommendations - PT/OT evaluation and likely placement Assessment & Plan (02/02/2019 8:59 AM CDT): - Recent T12 kyphoplasty. 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 Neuro intact. No cord issues - Ortho spine -> nonoperative. - APAP, toradol, oxycodone, gabapentin, lidocaine patches. - Pain is controlled when patient is lying down - PT/OT evaluation and likely placement Assessment & Plan (02/01/2019 10:49 PM CDT): - Recent T12 kyphoplasty. 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 Neuro intact. No cord issues - Ortho spine -> nonoperative. - APAP, toradol, oxycodone. 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 0307/27/2017 06/06/2019 Breast mass, right 11/10/2015 0 Overview (02/04/2019): Overview: Plan core Retinal artery branch occlusion of right eye 6 09/18/2020 Overview (02/04/2019): Overview: 1991 sudden loss of right eye upper field vision -> carotid duplex: OK per patient Osteoarthrosis involving mor e than one site but not generalized 09/28/2013 01/31/2017 Overview (08/18/2016): OSTEOARTHROSIS-MULT SITE Adiposity 04/18/2013 06/06/2019 Overview (08/18/2016): Obesity (BMI 30-39.9) Morbid obesity 04/18/2013 10/02/2019 Overview (08/20/2016): Morbid obesity with BMI of 40.0-44.9, adult Cataract, right eye 01/21/20 21 Pseudophakia, left eye 06/29 Assessment & Plan (01/21/2021 8:19 AM CDT): -will obtain records from Dr Mirza Encounters Date Type Department Care Team Description 05/19/2024 10:30 AM AIR TRAFFIC CONTROL OPERATOR - 05/19/2024 11:59 PM AIR TRAFFIC CONTROL OPERATOR Hospital Encounter [facility] Emergency, Room R Discharge Disposition: Discharge to home or self care 05/16/2024 4:41 PM AIR TRAFFIC CONTROL OPERATOR - 05/19/2024 10:28 AM AIR TRAFFIC CONTROL OPERATOR Hospital Encounter [facility] IMU [address] [place] [address] Laly Cazares MD Compression fracture of body of thoracic vertebra (CMS/HCC) (HCC) (Primary Dx); Osteopenia of lumbar spine; Chronic arthritis; 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, unspecified fracture morphology, subsequent encounter; Wound of right lower extremity, subsequent encounter; Chronic diastolic heart failure ([facility]); Primary hypertension; Macrocytic anemia; Pure hypercholesterolemia ; Acquired hypothyroidism; Gastro-esophageal reflux disease without esophagitis; BMI 45.0-49.9, adult ([facility]) Discharge Disposition: Discharge to an Rehab facility 05/16/2024 4:05 PM AIR TRAFFIC CONTROL OPERATOR - 05/16/2024 11:59 PM AIR TRAFFIC CONTROL OPERATOR Hospital Encounter [facility] AMBULANCE BILLING Emergency, Room R Discharge Disposition: Discharge to home or self care 05/09/2024 3:07 PM AIR TRAFFIC CONTROL OPERATOR - 05/09/2024 9:21 PM AIR TRAFFIC CONTROL OPERATOR Emergency [facility] Emergency Department [address] [place] [address] Closed wedge compression fracture of T7 vertebra, initial encounter ([facility]) (Primary Dx); Chest wall muscle strain, initial encounter; Strain of thoracic back region; Lumbar strain, initial encounter Discharge Disposition: Discharge to home or self care 05/09/2024 12:59 PM AIR TRAFFIC CONTROL OPERATOR - 05/09/2024 11:59 PM AIR TRAFFIC CONTROL OPERATOR Hospital Encounter [facility] AMBULANCE BILLING Emergency, Room R Discharge Disposition: Discharge to home or self care from Last 3 Months Immunizations Immunization Administration Dates Next Due Influenza, Quad, Adjuvantate d, Intramuscular 02/23/2021 Influenza, Quadrivalent, Hig h Dose, Preservative Free, Intrr 03/01/2023,2020 Influenza, Split 04/12/2012 Influenza, Trivalent, High D ose, Split, Preservative Free, Intramuscular 02/05/2018,01/31/2017,02/26/2016 Influenza, Trivalent, IM (MDV) 03/10/2017,2013,02/14/2013 Influenza, Trivalent, Split, Preservative Free, Intradermal 03/04/2015 Influenza, Unspecified 02/12/2022,2021(Deferred: Patient Refused),01/13/2022(Deferred: Patient Refused),02/26/2019,01/18/2019(Deferre d: Patient Refused),02/06/2018,02/05/2018, 015 Moderna SARS-CoV-2 Monovalen t Vaccination (12+ YRS) 03/15/2021,07/01/2020,06/03/2020 Pneumococcal Conjugate 7-Valent 02/17/2014 Pneumococcal Conjugate PCV 13 10/14/2015 Pneumococcal Polysaccharide PPV23 04/12/2012 Tdap 06/07/2023 ZOSTER LIVE 02/17/2014,08/24/2010 ZOSTER Recombinant 01/14/2021,10/29/2020 Surgical History Surgery Date Site/Laterality Comments TOTAL ABDOMINAL HYSTERECTOMY W/ BILATERAL SALPINGOOPHORECTOMY 05/15/1999 - 05/14/2000 Hysterectomy, total abdominal, BSO CATARACT EXTRACTION W/ INTRAOCULAR LENS IMPLANT 01/14/2020 - 02/12/2020 Left KYPHOPLASTY 05/15/2018 - 05/14/2019 BREAST LUMPECTOMY 05/15/2017 - 05/14/2018 Left radial scar, outer breast..RIGHT 2016 radial scar, near areola BREAST BIOPSY 11/19/2015 Right Medical History Medical History Date Comments Arthritis Arthritis Hypertension Hypertension Disorder of thyroid Thyroid dise ase Hx of colonoscopy 10/28/2016 Hyperlipidemia GERD (gastroesophageal reflux disease) Hypothyroidism Coughing Snoring Cataract, right eye Pseudophakia, left eye Pulmonary nodules 08/28/2023 Abnormal breast finding 08/28/2023 Family History Medical History Relation Name Comments Hypertension Brother Stroke Brother Thyroid disease Brother Hypertension Father Stroke Father Breast cancer Father's Sister Breast cancer Mother Cause of : Cancer -breast/Cancer, breast; Depression Mother Diabetes Mother Anesthesia problems Neg Hx Ovarian cancer Neg Hx Thyroid cancer Neg Hx Relation Name Status Comments Brother Father Father's Sister Mother (Age 79) Social History Tobacco Use Types Packs/Day Years Used Date Smoking Tobacco: Never Passive Smoke Exposure: Past Smokeless Tobacco: Never Tobacco Cessation:Counseling Given: Not Answered Alcohol Use Standard Drinks/Week Comments Not Currently 0 (1 standard drink = 0.6 oz pur e alcohol) OASIS D0700: Social Isolation Answer Da te Recorded Frequency of experiencing loneliness or isolatio n Never 08/10/2022 OASIS A1250: Transportation Answer Date Recorded Lack of Transportation (Medical) No 08/10/2022 Lack of Transportation (Non-Medical) No 08/10/2022 Patient Unable or Declines to Respond No 08/10/2022 OASIS B1300: Health Literacy Answer Agustin e Recorded Frequency of needing help to read materials from doctor or pharmacy Sometimes 08/10/2022 [facility] Utilities Answer Date Recorded In the past 12 months has e [employer], gas, oil, or water company threatened to shut off services in your home? No 11/09/2023 Social Connection and Isolat ion Panel [NHANES] Answer Date Recorded In a typical week, how many times do you talk on the phone with family, friends, or neighbors? More than three times a week 11/09/2023 How often do you get togethe r with friends or relatives? Once a week 11/09/2023 How often do you attend chur ch or oriental orthodox services? Never 11/09/2023 Do you belong to any clubs o r organizations such as sabianist groups, unions, fraternal or athletic groups, or school groups? No 11/09/2023 How often do you attend meet ings of the clubs or organizations you belong to? Never 11/09/2023 Are you , , di vorced, , never , or living with a partner? 11/09/2023 AUDIT-C Answer Date Recorded Q1: How often do you have a drink containing alc ohol? Monthly or less 05/16/2024 Q2: How many drinks containi ng alcohol do you have on a typical day when you are drinking? 1 or 2 05/16/2024 Q3: How often do you have si x or more drinks on one occasion? Never 05/16/2024 Overall Financial Resource Strain (CARDIA) Answe r Date Recorded How hard is it for you to pa y for the very basics like food, housing, medical care, and heating? Not hard at all 11/09/2023 PHQ-2 Answer Date Recorded PHQ-2 Total Score (If total score is 3 or more points, staff should administer the PHQ-9) 0 09/22/2023 Hunger Vital Sign Answer Date Recorded Within the past 12 months, y ou worried that your food would run out before you got the money to buy more. Never true 11/09/19 24 Within the past 12 months, t he food you bought just didn't last and you didn't have money to get more. Never true 11/09/2023 PRAPARE - Transportation Answer Date Re corded In the past 12 months, has l ack of transportation kept you from medical appointments or from getting medications? No 10/14 In the past 12 months, has l ack of transportation kept you from meetings, work, or from getting things needed for daily living? No 11/09/2023 Housing Stability Vital Sign Answer Agustin e Recorded In the last 12 months, was t here a time when you were not able to pay the mortgage or rent on time? No 11/09/2023 In the past 12 months, how m any times have you moved where you were living? 0 11/09/2023 At any time in the past 12 m [facility], were you homeless or living in a long-term (including now)? No 11/09/2023 Personal Safety Answer Date Recorded Have you ever been in or are you currently in a harmful physical or emotional relationship or is someone making you feel afraid or unsafe? Denies 05/16/2024 Comments No Sex and Gender Information Value Date Recorded Sex Assigned at Not on file Legal Sex Female 11:51 PM AIR TRAFFIC CONTROL OPERATOR Gender Identity Not on file Sexual Orientation Not on file Obstetrics History Para Term AB IAB SAB Ectopic Multiple Livin g Live Births 1 1 1 Date Outcome GA Total Labor Labor/2nd/3rd Weight Sex Type Anes PTL Leidy A1 A5 Name Clin Term Last Filed Vital Signs Vital Sign Reading Time Taken Comments Blood Pressure 112/70 05/19/2024 8:36 AM AIR TRAFFIC CONTROL OPERATOR Pulse 62 05/19/2024 7:27 AM AIR TRAFFIC CONTROL OPERATOR Temperature 36.4 C (97.6 F) 05/19/2024 7:27 AM AIR TRAFFIC CONTROL OPERATOR Respiratory Rate 20 05/19/2024 7:27 AM AIR TRAFFIC CONTROL OPERATOR Oxygen Saturation 89% 05/19/2024 7:2 7 AM AIR TRAFFIC CONTROL OPERATOR rn notified Inhaled Oxygen Concentration - - Weight 121.7 kg (268 lb 4.8 oz) 05/16/2024 9:30 PM AIR TRAFFIC CONTROL OPERATOR Height 157.5 cm (5' 2 ) 05/16/2024 9:30 PM AIR TRAFFIC CONTROL OPERATOR Body Mass Index 49.07 05/16/2024 9:30 PM AIR TRAFFIC CONTROL OPERATOR Plan of Treatment Health Maintenance Due Date Last Done Comments Hepatitis B Screening 1958 Colon Cancer Screening-Colonoscopy 10/28/20212016 Covid-19 Vaccine (2023-2 5 season) 2024 03/15/2021, 07/01/2020, 06/03/2020 Influenza Vaccine (#1) 2024 3, 02/12/2022, 02/23/2021, Additional history exists Osteoporosis Screening-Bone Density Scan 02/17/2024 02/16/2022, 05/03/2019, 08/02/2016 Well Visit 65+ 03/01/2024 03/01/2023, 10/2020, 04/16/2020, Additional history exists Breast Cancer Screening-Mammogram 04/10/2024 04/10/2023, 02/16/2022, 11/27/2017, Additional history exists Depression Screening 09/21/2024 09/22/2023, 03/01/2023, 11/29/2022, Additional history exists Fall Risk Assessment 05/19/2025 05/19/2024, 09/22/2023, 08/10/2023, Additional history exists DTaP/Tdap/Td Vaccine (2 - Td or Tdap) 06/07/2033 06/07/2023 Pneumococcal vaccine 65+ Completed 016, 02/17/2014, 04/12/2012 Zoster Vaccine Completed 01/14/2021, 10/13, 02/17/2014, Additional history exists Medical Devices Implanted Type Area Adoption Manager Device Identifier Shelf Expiration Date Model / Serial / Lot [employer]ron Surgical [id number] Acrysof Iq Natural Stableforce Acrysert 6mm 13mm 1 Piece Foldable - [id number] - [id number] Implanted:Qty: 1 on 04/22/2021 by Benji Stark MD at [facility] Lens Right: Eye [employer] [id number] 11/17/2025 [id number].24 0 / [id number] / 0 Procedures Procedure Name Priority Date/Time Associated Diagnosis Comments COVID-19 CORONAVIRUS RNA Routine 05/19/2024 8:35 AM AIR TRAFFIC CONTROL OPERATOR AEROBIC AND ANAEROBIC CULTURE AND GRAM STAIN Routine 05/17/2024 9:31 AM AIR TRAFFIC CONTROL OPERATOR EGFR Routine 05/17/2024 6:51 AM AIR TRAFFIC CONTROL OPERATOR DIFFERENTIAL AUTO Routine 05/17/2024 6:5 1 AM AIR TRAFFIC CONTROL OPERATOR CBC WITH AUTO DIFFERENTIAL Routine 05/17/2024 6:51 AM AIR TRAFFIC CONTROL OPERATOR BASIC METABOLIC PANEL Routine 05/17/2024 6:51 AM AIR TRAFFIC CONTROL OPERATOR XR CHEST 1 VIEW IP Routine 05/16/2024 10:49 PM AIR TRAFFIC CONTROL OPERATOR DIFFERENTIAL AUTO STAT 05/16/2024 5:1 1 PM AIR TRAFFIC CONTROL OPERATOR CBC WITH AUTO DIFFERENTIAL STAT 05/16/2024 5:11 PM AIR TRAFFIC CONTROL OPERATOR EGFR STAT 05/16/2024 5:11 PM AIR TRAFFIC CONTROL OPERATOR COMPREHENSIVE METABOLIC PANEL STAT 05/16/2024 5:11 PM AIR TRAFFIC CONTROL OPERATOR CT THORACIC SPINE WO CONTRAST ED 05/09/2024 6:50 PM AIR TRAFFIC CONTROL OPERATOR CT LUMBAR SPINE WO CONTRAST ED 05/09/2024 6:50 PM AIR TRAFFIC CONTROL OPERATOR CT CHEST WO CONTRAST ED 05/09/2024 6:50 PM AIR TRAFFIC CONTROL OPERATOR SCREENING MAMMOGRAM BILATERAL W REMI Schedule Routine, Read Routine (OP Routine) 04/10/2023 1:57 PM AIR TRAFFIC CONTROL OPERATOR Screening mammogram, encounter for DEXA AXIAL SKELETON BONE DENSITY 1 OR MORE SITES Schedule Routine, Read Routine (OP Routine) 02/16/2022 2:01 PM CDT Osteoporosis, unspecified osteoporosis type, unspecified pathological fracture presence COLONOSCOPY REPORT 10/28/2016 from Last 3 Months or Most Recently Relevant to Health Maintenance Results * COVID-19 Coronavirus RNA Nasopharyngeal (05/19/2024 8:35 AM AIR TRAFFIC CONTROL OPERATOR) COVID-19 RNA Negative Negative Nasopharyngeal 05/19/2024 8: 35 AM AIR TRAFFIC CONTROL OPERATOR 05/19/2024 8:44 AM AIR TRAFFIC CONTROL OPERATOR Narrative MICHAEL TABOR (VLADIMIR) - 05/19/2024 9:58 AM AIR TRAFFIC CONTROL OPERATOR Is the patient experiencing any symptoms consistent with COVID (eg. Fever, cough, shortness of breath)?->No What is the reason for testing?->Screening for post-acute care placement Interpretive data: Testing performed by [facility]. This test is performed using the [employer] Xpert Xpress CoV-2 plus assay. This is a real-time RT-PCR test intended for the qualitative detection of nucleic acid from the SARS-CoV-2. This assay has been cleared by the [place] Food and Drug administration. The performance characteristics have been verified by [facility]. Results must be considered in the clinical context, and a negative result does not rule out infection. Interpretive data last revised 2023. Interpretive data: Testing performed by [facility]. This test is performed using the [employer] Xpert Xpress CoV-2 plus assay. This is a real-time RT-PCR test intended for the qualitative detection of nucleic acid from the SARS-CoV-2. This assay has been cleared by the [place] Food and Drug administration. The performance characteristics have been verified by [facility]. Results must be considered in the clinical context, and a negative result does not rule out infection. Interpretive data last revised 2023. Laly Cazares MD LAB MICROBIOLOGY - GENERA L ORDERABLES Final Result MICHAEL TABOR ([place]) 1 [facility] Department of Laboratories [place], [place] [id number] * (ABNORMAL) Aerobic and anaerobic culture and gram stain Wound Leg, right (05/17/2024 9:31 AM AIR TRAFFIC CONTROL OPERATOR) Direct Specimen Exam Stain: No polymorphonuclear leukocytes seen. Rare Gram Positive Cocci Comment:Testing performed by : [facility], [address] [facility], [place]., [address] Report Final Report: Few Mixed microorganisms. (.) MICHAEL TABOR (VLADIMIR) Comment:Testing performed by : [facility], [address] [facility], [place]., [address] Organism MIXED MICROORGANISMS. MICHAEL TABOR (VLADIMIR) Wound (Leg, right) 05/17/2024 9:31 AM AIR TRAFFIC CONTROL OPERATOR 05/17/2024 12:13 PM AIR TRAFFIC CONTROL OPERATOR Narrative MICHAEL TABOR (VLADIMIR) - 05/21/2024 3:06 PM AIR TRAFFIC CONTROL OPERATOR Testing performed by [facility] Microbiology Laboratory ([phone]) Specimens submitted from normally sterile body sites will have all bacterial morphotypes identified. Specimens that contain grossly mixed [place] and/or are from body sites that are not normally sterile will be examined for Staphylococcus aureus, Pseudomonas aeruginosa, beta-hemolytic strep, vancomycin-resistant Enterococcus, Bacteroides, Parabacteroides, Clostridium perfringens and fungus. If any of these are isolated, the organism will be reported. Current interpretive data was last revised on 2019. Gloria Tan MD LAB MICROBIOLOGY - GENERAL ORDERABLES Final Result MICHAEL SHARONA ([place]AD[place]IR) 1 [facility] Department of Laboratories [place], [place] [id number] * eGFR (05/17/2024 6:51 AM AIR TRAFFIC CONTROL OPERATOR) eGFR 60 >=60 mL/min/1. 73 m2 Comment: Interpretive Data Reference Interval Normal >/= 90 mL/min/1.73m2 Mildly decreased* 60 - 89 mL/min/1.73m2 Mildly to moderately decreased 45 - 59 mL/min/1.73m2 Moderately to severely decreased 30 - 44 mL/min/1.73m2 Severely decreased 15 - 29 mL/min/1.73m2 Kidney Failure < 15 mL/min/1.73m2 *Relative to young adult level Estimated glomerular filtration rate is determined by the 2020 CKD-EPI equation recommended by the National Kidney Foundation (A Unifying Approach to GFR Estimation: Recommendations of the NKF-ASK Task Force on Reassessing the Inclusion of Race in Diagnosing Kidney Disease, JASN 2020). The CKD-EPI equation should not be used for patients with unstable renal function and has not been validated in children and those over 70. Current interpretive data was last reviewed 2021. Blood 05/17/2024 6:51 AM AIR TRAFFIC CONTROL OPERATOR 05/17/2024 7:13 AM AIR TRAFFIC CONTROL OPERATOR us Laly Cazares MD LAB BLOOD ORDERABLES Melodie askew Result [facility] ([place]) 1 [facility] Department [place] [address] * Differential, auto (05/17/2024 6:51 AM AIR TRAFFIC CONTROL OPERATOR) Neutrophil abs 4.8 1.5 - 6.5 K/cumm Imm gran abs 0.0 0.0 - 0.1 K/cumm [facility] ([place]) Lymphocyte abs 2.0 0.8 - 3.3 K/cumm [facility] ([place]) Monocyte abs 0.8 0.2 - 0.8 K/cumm [facility] ([facility]) Eosinophil abs 0.5 0.0 - 0.5 K/cumm [facility] ([facility]) Basophil abs 0.0 0.0 - 0.1 K/cumm [facility] ([facility]) Neutrophil pct 59.1 % [facility] ([facility]) Comment: Interpretive Data Percent cell count reference ranges are not reported, since discordance with absolute values may lead to misinterpretation of CBC data. Current Interpretive Data was last revised on 2017. Imm gran pct 0.4 % [facility] ([facility]) Comment: Interpretive Data Percent cell count reference ranges are not reported, since discordance with absolute values may lead to misinterpretation of CBC data. Current Interpretive Data was last revised on 2017. Lymphocyte pct 24.9 % [facility] ([facility]) Comment: Interpretive Data Percent cell count reference ranges are not reported, since discordance with absolute values may lead to misinterpretation of CBC data. Current Interpretive Data was last revised on 2017. Monocyte pct 9.4 % [facility] ([facility]) Comment: Interpretive Data Percent cell count reference ranges are not reported, since discordance with absolute values may lead to misinterpretation of CBC data. Current Interpretive Data was last revised on 2017. Eosinophil pct 6.0 % [facility] ([facility]) Comment: Interpretive Data Percent cell count reference ranges are not reported, since discordance with absolute values may lead to misinterpretation of CBC data. Current Interpretive Data was last revised on 2017. Basophil pct 0.2 % [facility] ([facility]) Comment: Interpretive Data Percent cell count reference ranges are not reported, since discordance with absolute values may lead to misinterpretation of CBC data. Current Interpretive Data was last revised on 2017. Blood 05/17/2024 6:51 AM AIR TRAFFIC CONTROL OPERATOR 05/17/2024 7:13 AM AIR TRAFFIC CONTROL OPERATOR us Laly Cazares MD LAB BLOOD ORDERABLES Melodie askew Result [facility] ([facility]) 1 [facility] [place] [address] * (ABNORMAL) CBC with auto differential (05/17/2024 6:51 AM AIR TRAFFIC CONTROL OPERATOR) WBC 8.1 3.8 - 9.9 K/cumm Hgb 10.2(L) 11.9 - 15.5 g/dL [facility] ([facility]) Hct 32.5(L) 35.6 - 45.5 % [facility] ([facility]) Plt 265 150 - 400 K/cumm [facility] ([facility]) MPV 10.0 9.1 - 12.3 fL [facility] ([facility]) RBC 3.12(L) 3.90 - 5.20 M/cumm [facility] ([facility]) MCV 104.2(H) 81.3 - 96.4 fL [facility] ([facility]) MCH 32.7 27.1 - 33.3 pg [facility] ([facility]) MCHC 31.4(L) 32.3 - 35.7 g/dL [facility] ([facility]) RDW CV 14.2 11.1 - 14.9 % [facility] ([facility]) RDW SD 53.8(H) 35.7 - 48.1 fL [facility] ([facility]) NRBC abs 0.00 0.00 - 0.01 K/cumm [facility] ([facility]) Blood 05/17/2024 6:51 AM AIR TRAFFIC CONTROL OPERATOR 05/17/2024 7:13 AM AIR TRAFFIC CONTROL OPERATOR us Laly Cazares MD LAB BLOOD ORDERABLES Melodie askew Result [facility] ([facility]) 1 [facility] [place] [address] * Basic metabolic panel (05/17/2024 6:51 AM AIR TRAFFIC CONTROL OPERATOR) Sodium 143 135 - 145 mmol/L Potassium, pl 3.9 3.3 - 4.9 mmol/L [facility] ([facility]) Chloride 107 97 - 110 mmol/L [facility] ([facility]) CO2 27 22 - 32 mmol/L [facility] ([facility]) Anion gap 10 2 - 15 mmol/L [facility] ([facility]) BUN 19 6 - 25 mg/[facility] Creatinine 0.95 0.60 - 1.10 mg/dL [facility] ([facility]) Glucose 95 70 - 199 mg/dL [facility] ([facility] Comment: Interpretive Data Fasting glucose >/= 126 mg/dl is diagnostic for diabetes. Fasting is defined as no caloric intake for at least 8 hours. Fasting glucose between 100 mg/dl to 125 mg/dl is diagnostic of prediabetes. In a patient with classic symptoms of hyperglycemia or hyperglycemic crisis, a random glucose >/= 200 mg/dl is diagnostic for diabetes. In the absence of unequivocal hyperglycemia, results should be confirmed by repeat testing. The classification and Diagnosis of Diabetes Diabetes Care 2021; 46: S19-S40. Current interpretive data was last revised 2022. Calcium 9.4 8.5 - 10.3 mg/dL [facility] ([facility] Blood 05/17/2024 6:51 AM AIR TRAFFIC CONTROL OPERATOR 05/17/2024 7:13 AM AIR TRAFFIC CONTROL OPERATOR us Laly Cazares MD LAB BLOOD ORDERABLES Melodie askew Result [facility] 1 [facility]ly [facility] Department [place] [address] * XR CHEST 1 VIEW PORTABLE (05/16/2024 10:49 PM AIR TRAFFIC CONTROL OPERATOR) Anatomical Region Laterality Modality Body, Chest N/A Computed Radiogr aphy 05/17/2024 12:5 6 AM AIR TRAFFIC CONTROL OPERATOR Narrative 05/17/2024 12:59 AM AIR TRAFFIC CONTROL OPERATOR EXAM DESCRIPTION: XR CHEST 1 VIEW REASON FOR STUDY: Left sided CP with radiation to back. Rule out bony abnormality Left sided chest pain that radiates to the back tonight. TECHNIQUE: Portable upright AP view of the chest. COMPARISON: 09/27/2021 FINDINGS: LUNGS AND PLEURA: No focal opacity, large effusion, or pneumothorax identified. HEART/MEDIASTINUM: Trachea midline. Mild cardiomegaly. BONES: Nonunion left humeral neck fracture. CHEST WALL: Unremarkable. UPPER ABDOMEN: Unremarkable. IMPRESSION: No acute cardiopulmonary abnormality identified within limits of portable technique. Nonunion left humeral neck fracture. THIS IS AN ELECTRONICALLY VERIFIED FINAL REPORT 05/17/2024 12:59 AM - Electronically signed by Benji Sharp M.D. AR: LISETH Report ID: [id number] Reading Location: [id number] Procedure Note Benji Sharp MD - 05/17/2024 EXAM DESCRIPTION: XR CHEST 1 VIEW REASON FOR STUDY: Left sided CP with radiation to back. Rule out bony abnormality Left sided chest pain that radiates to the back tonight. TECHNIQUE: Portable upright AP view of the chest. COMPARISON: 09/27/2021 FINDINGS: LUNGS AND PLEURA: No focal opacity, large effusion, or pneumothorax identified. HEART/MEDIASTINUM: Trachea midline. Mild cardiomegaly. BONES: Nonunion left humeral neck fracture. CHEST WALL: Unremarkable. UPPER ABDOMEN: Unremarkable. IMPRESSION: No acute cardiopulmonary abnormality identified within limits of portable technique. Nonunion left humeral neck fracture. THIS IS AN ELECTRONICALLY VERIFIED FINAL REPORT 05/17/2024 12:59 AM - Electronically signed by Benji Sharp M.D. AR: LISETH Report ID: [id number] Reading Location: [place] [id number] us Laly Cazares MD IMG XR PROCEDURES Final R esult * (ABNORMAL) eGFR (05/16/2024 5:11 PM AIR TRAFFIC CONTROL OPERATOR) eGFR 49(L) >=60 mL/min/1. 73 m2 Comment: Interpretive Data Reference Interval Normal >/= 90 mL/min/1.73m2 Mildly decreased* 60 - 89 mL/min/1.73m2 Mildly to moderately decreased 45 - 59 mL/min/1.73m2 Moderately to severely decreased 30 - 44 mL/min/1.73m2 Severely decreased 15 - 29 mL/min/1.73m2 Kidney Failure < 15 mL/min/1.73m2 *Relative to young adult level Estimated glomerular filtration rate is determined by the 2020 CKD-EPI equation recommended by the National [employer] (A Unifying Approach to GFR Estimation: Recommendations of the NKF-ASK Task Force on Reassessing the Inclusion of Race in Diagnosing Kidney Disease, JASN 2020). The CKD-EPI equation should not be used for patients with unstable renal function and has not been validated in children and those over 70. Current interpretive data was last reviewed 2021. Blood 05/16/2024 5:11 PM AIR TRAFFIC CONTROL OPERATOR 05/16/2024 5:23 PM AIR TRAFFIC CONTROL OPERATOR us Savannah CARDENAS LAB BLOOD ORDERABLES Melodie l Result [facility] 1 [facility] Department [place] [address] * Differential, auto (05/16/2024 5:11 PM AIR TRAFFIC CONTROL OPERATOR) Neutrophil abs 5.1 1.5 - 6.5 K/cumm Imm gran abs 0.0 0.0 - 0.1 K/cumm [facility] ([facility]) Lymphocyte abs 1.4 0.8 - 3.3 K/cumm [facility] ([facility]) Monocyte abs 0.7 0.2 - 0.8 K/cumm [facility] ([facility]) Eosinophil abs 0.5 0.0 - 0.5 K/cumm [facility] ([facility]) Basophil abs 0.0 0.0 - 0.1 K/cumm [facility] ([facility]) Neutrophil pct 66.6 % [facility] ([facility] Comment: Interpretive Data Percent cell count reference ranges are not reported, since discordance with absolute values may lead to misinterpretation of CBC data. Current Interpretive Data was last revised on 2017. Imm gran pct 0.4 % [facility] ([facility] Comment: Interpretive Data Percent cell count reference ranges are not reported, since discordance with absolute values may lead to misinterpretation of CBC data. Current Interpretive Data was last revised on 2017. Lymphocyte pct 18.3 % [facility] ([facility] Comment: Interpretive Data Percent cell count reference ranges are not reported, since discordance with absolute values may lead to misinterpretation of CBC data. Current Interpretive Data was last revised on 2017. Monocyte pct 8.7 % [facility] ([facility] Comment: Interpretive Data Percent cell count reference ranges are not reported, since discordance with absolute values may lead to misinterpretation of CBC data. Current Interpretive Data was last revised on 2017. Eosinophil pct 5.9 % [facility] ([facility] Comment: Interpretive Data Percent cell count reference ranges are not reported, since discordance with absolute values may lead to misinterpretation of CBC data. Current Interpretive Data was last revised on 2017. Basophil pct 0.1 % [facility] ([facility] Comment: Interpretive Data Percent cell count reference ranges are not reported, since discordance with absolute values may lead to misinterpretation of CBC data. Current Interpretive Data was last revised on 2017. Blood 05/16/2024 5:11 PM AIR TRAFFIC CONTROL OPERATOR 05/16/2024 6:09 PM AIR TRAFFIC CONTROL OPERATOR us Savannah CARDENAS LAB BLOOD ORDERABLES Melodie l Result [facility] ([facility]) 1 [facility] [place] [address] * (ABNORMAL) CBC with auto differential (05/16/2024 5:11 PM AIR TRAFFIC CONTROL OPERATOR) [facility] WBC 7.6 3.8 - 9.9 K/cumm Hgb 10.3(L) 11.9 - 15.5 g/dL [facility] Hct 33.2(L) 35.6 - 45.5 % [facility] Plt 291 150 - 400 K/cumm [facility] ([facility]) MPV 10.1 9.1 - 12.3 fL [facility] ([facility]) RBC 3.19(L) 3.90 - 5.20 M/cumm [facility] ([facility]) MCV 104.1(H) 81.3 - 96.4 fL [facility] ([facility]) MCH 32.3 27.1 - 33.3 pg [facility] ([facility]) MCHC 31.0(L) 32.3 - 35.7 g/dL [facility] ([facility]) RDW CV 14.4 11.1 - 14.9 % [facility] RDW SD 55.1(H) 35.7 - 48.1 fL [facility]) NRBC abs 0.00 0.00 - 0.01 K/cumm [facility] Blood (Blood, Venous) 05/16/2024 5:11 PM AIR TRAFFIC CONTROL OPERATOR 05/16/2024 6:09 PM AIR TRAFFIC CONTROL OPERATOR Savannah CARDENAS LAB BLOOD ORDERABLES Melodie l Result [facility] ([facility]) 1 [facility] [place] [address] * (ABNORMAL) Comprehensive metabolic panel (05/16/2024 5:11 PM AIR TRAFFIC CONTROL OPERATOR) [facility] Sodium 143 135 - 145 mmol/L Potassium, pl 4.2 3.3 - 4.9 mmol/L [facility] Chloride 106 97 - 110 mmol/L [facility] CO2 29 22 - 32 mmol/L [facility] Anion gap 8 2 - 15 mmol/L [facility] BUN 21 6 - 25 mg/dL [facility]) Creatinine 1.12(H) 0.60 - 1.10 mg/dL [facility] Glucose 106 70 - 199 mg/dL [facility] ([facility] Comment: Interpretive Data Fasting glucose >/= 126 mg/dl is diagnostic for diabetes. Fasting is defined as no caloric intake for at least 8 hours. Fasting glucose between 100 mg/dl to 125 mg/dl is diagnostic of prediabetes. In a patient with classic symptoms of hyperglycemia or hyperglycemic crisis, a random glucose >/= 200 mg/dl is diagnostic for diabetes. In the absence of unequivocal hyperglycemia, results should be confirmed by repeat testing. The classification and Diagnosis of Diabetes Diabetes Care 202; 46: S19-S40. Current interpretive data was last revised 2022. Calcium 9.4 8.5 - 10.3 mg/dL [facility]) Bilirubin, total 0.6 0.1 - 1.2 mg/dL [facility] ([facility]) Protein, pl 6.0(L) 6.5 - 8.5 g/dL [facility] ([facility]) Albumin 3.3(L) 3.5 - 5.0 g/dL [facility] ([facility]) Alk phos 105 40 - 130 Units/L [facility] ([facility]) ALT <5(L) 7 - 45 Units/L [facility] ([facility]) AST 9(L) 10 - 45 Units/L [facility]) Blood 05/16/2024 5:11 PM AIR TRAFFIC CONTROL OPERATOR 05/16/2024 5:23 PM AIR TRAFFIC CONTROL OPERATOR us Savannah CARDENAS LAB BLOOD ORDERABLES Melodie askew Result [facility] ([facility] 1 [facility] Department [place] [address] * CT Lumbar Spine WO Contrast (05/09/2024 6:50 PM AIR TRAFFIC CONTROL OPERATOR) Anatomical Region Laterality Modality Spine N/A Computed Tomogra phy 05/09/2024 7:59 PM AIR TRAFFIC CONTROL OPERATOR Narrative 05/09/2024 8:17 PM AIR TRAFFIC CONTROL OPERATOR EXAM DESCRIPTION: CT THORACIC SPINE WO CONTRAST; CT CHEST WO CONTRAST; CT LUMBAR SPINE WO CONTRAST REASON FOR STUDY: Driving a motorized wheelchair and ran into a partition wall Patient complains of injury to her middle back and left posterior thorax. On 04/29/24 patient was backing up in her electric wheelchair and hit a partition wall. Pain is gradually worsening and aggravated by movement and deep inspiration. ; Driving a motorized wheelchair and backed into a partition wall. Pain to the left posterior thorax and lower half of the thoracic spine Patient complains of injury to her middle back and left posterior thorax. On 04/29/24 patient was backing up in her electric wheelchair and hit a partition wall. Pain is gradually worsening and aggravated by movement and deep inspiration. TECHNIQUE: CT scan of the chest performed without intravenous contrast using helical scanning technique. Dedicated CT images of the thoracic and lumbar spine were obtained without intravenous contrast. Reconstructed coronal and sagittal MPR images reviewed. All images stored on PACS. Automated exposure control was used as a dose optimization technique for this examination. COMPARISON: Chest CT dated 08/08/2023. Lumbar spine CT dated 12/06/2018 FINDINGS: The sensitivity for detection of solid visceral lesions is diminished without the use of intravenous contrast. Examination limited by motion. LUNGS: Examination is limited by respiratory motion. Increased mild subpleural ground-glass compared to the prior examination as evidence for atelectasis or scarring. Mild patchy ground-glass is seen elsewhere as evidence for atelectasis and air trapping. No interlobular septal thickening is seen to suggest edema. PLEURA: No effusion. No pneumothorax. MEDIASTINUM/FABRICE: No anterior mediastinal hematoma. No mediastinal or hilar lymphadenopathy HEART: The heart is normal in size and obscured by motion. No significant effusion CORONARY ARTERY CALCIFICATION: Moderate coronary calcification. VASCULATURE: Aorta is obscured by motion artifact. It is grossly normal in caliber. There is dilatation of the main pulmonary artery measuring 4.0 cm which likely reflects chronic pulmonary hypertension. AXILLA: Subcentimeter axillary lymph nodes are noted CHEST WALL: The entire chest wall is not included within the field of view. No gross subcutaneous edema HARDWARE/LINES/TUBES: None. UPPER ABDOMEN: No significant abnormality. MUSCULOSKELETAL: Partially imaged comminuted left shoulder fracture, seen on previous CT dated 11/07/2023. There are evidence of old single bilateral rib fractures. Evidence of an old sternal manubrial fracture is also noted. Dedicated CT images of the thoracic and lumbar spine were also obtained and reviewed. Osteopenia limits evaluation for an underlying fracture. There is grossly stable retropulsion of T12-L1 associated with a compression fracture with vertebroplasty compared to 08/08/2023. trace anterolisthesis of T8-9. Lumbar levocurvature. Mild T7 compression fracture is new compared to 08/08/2023 with minimal retropulsion of the posterosuperior endplate measuring approximately 3 mm. Compression fracture of the inferior endplate of T11 is unchanged. Again noted is severe T12 compression fracture with retropulsion status post vertebroplasty, grossly unchanged in appearance. There are sclerotic lesions within T6 and T10 which are grossly unchanged compared to the prior examination. There is likely an underlying hemangioma at T6 as well. There is a mild compression fracture of the superior endplate of L1 which was partially included within the field of view on the recent chest CT on 08/08/2023 and therefore favored to be chronic. Old-appearing right lumbar transverse process fractures are noted. There is moderate mid and lower thoracic degenerative disc disease. Moderate to severe multilevel lumbar degenerative disc disease with areas of vacuum phenomenon. Multilevel osseous neural foraminal narrowing is noted within the lumbar spine. Significant central canal narrowing at T12 to the patient's chronic retropulsion. IMPRESSION: Examination limited by significant motion artifact. 1. No gross acute cardiopulmonary abnormality. 2. Osteopenia limits evaluation for fracture. Evidence of a new mild T7 compression fracture with minimal retropulsion compared to a chest CT on 08/08/2023. 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 Follow-up lumbar spine MRI may be performed for further evaluation. THIS IS AN ELECTRONICALLY VERIFIED FINAL REPORT 05/09/2024 8:17 PM - Electronically signed by El Walsh M.D. AG: GELY Report ID: [id number] Reading Location: [id number] Procedure Note El Walsh MD - 05/09/2024 EXAM DESCRIPTION: CT THORACIC SPINE WO CONTRAST; CT CHEST WO CONTRAST;CT LUMBAR SPINE WO CONTRAST REASON FOR STUDY: Driving a motorized wheelchair and ran into apartition wall Patient complains of injury to her middle back and left posterior thorax.On 04/29/24 patient was backing up in her electric wheelchair and hit apartition wall. Pain is gradually worsening and aggravated by movement and deep inspiration. ; Driving a motorized wheelchair and backed into a partition wall. Pain to the left posterior thorax and lower half of the thoracicspine Patient complains of injury to her middle back and left posterior thorax.On 04/29/24 patient was backing up in her electric wheelchair and hit apartition wall. Pain is gradually worsening and aggravated by movement and deep inspiration. TECHNIQUE: CT scan of the chest performed without intravenous contrastusing helical scanning technique. Dedicated CT images of the thoracic andlumbar spine were obtained without intravenous contrast. Reconstructed coronaland sagittal MPR images reviewed. All images stored on PACS. Automatedexposure control was used as a dose optimization technique for this examination. COMPARISON: Chest CT dated 08/08/2023. Lumbar spine CT dated 12/06/2018 FINDINGS: The sensitivity for detection of solid visceral lesions is diminishedwithout the use of intravenous contrast. Examination limited by motion. LUNGS: Examination is limited by respiratory motion. Increased mild subpleural ground-glass compared to the prior examination as evidence for atelectasis or scarring. Mild patchy ground-glass is seen elsewhere as evidence for atelectasis and air trapping. No interlobular septalthickening is seen to suggest edema. PLEURA: No effusion. No pneumothorax. MEDIASTINUM/FABRICE: No anterior mediastinal hematoma. No mediastinal orhilar lymphadenopathy HEART: The heart is normal in size and obscured by motion. Nosignificant effusion CORONARY ARTERY CALCIFICATION: Moderate coronary calcification. VASCULATURE: Aorta is obscured by motion artifact. It is grossly normalin caliber. There is dilatation of the main pulmonary artery measuring 4.0cm which likely reflects chronic pulmonary hypertension. AXILLA: Subcentimeter axillary lymph nodes are noted CHEST WALL: The entire chest wall is not included within the field ofview. No gross subcutaneous edema HARDWARE/LINES/TUBES: None. UPPER ABDOMEN: No significant abnormality. MUSCULOSKELETAL: Partially imaged comminuted left shoulder fracture,seen on previous CT dated 11/07/2023. There are evidence of old single bilateralrib fractures. Evidence of an old sternal manubrial fracture is also noted. Dedicated CT images of the thoracic and lumbar spine were also obtainedand reviewed. Osteopenia limits evaluation for an underlying fracture. There is grossly stable retropulsion of T12-L1 associated with acompression fracture with vertebroplasty compared to 08/08/2023. traceanterolisthesis of T8-9. Lumbar levocurvature. Mild T7 compression fracture is new compared to 08/08/2023 with minimal retropulsion of the posterosuperior endplate measuring approximately 3 mm. Compression fracture of the inferior endplate of T11 is unchanged. Again noted is severe T12 compression fracture with retropulsion status post vertebroplasty, grossly unchanged in appearance. There are scleroticlesions within T6 and T10 which are grossly unchanged compared to the prior examination. There is likely an underlying hemangioma at T6 as well.There is a mild compression fracture of the superior endplate of L1 which was partially included within the field of view on the recent chest CT on 08/08/2023 and therefore favored to be chronic. Old-appearing rightlumbar transverse process fractures are noted. There is moderate mid and lower thoracic degenerative disc disease. Moderate to severe multilevel lumbar degenerative disc disease with areas of vacuum phenomenon. Multilevelosseous neural foraminal narrowing is noted within the lumbar spine. Significant central canal narrowing at T12 to the patient's chronic retropulsion. IMPRESSION: Examination limited by significant motion artifact. 1. No gross acute cardiopulmonary abnormality. 2. Osteopenia limits evaluation for fracture. Evidence of a new mild T7 compression fracture with minimal retropulsion compared to a chest CT on 08/08/2023. Evidence of significant central canal narrowing associatedwith the patient's chronic T12 burst fracture status post vertebroplasty. Follow-up lumbar spine MRI may be performed for further evaluation. THIS IS AN ELECTRONICALLY VERIFIED FINAL REPORT 05/09/2024 8:17 PM - Electronically signed by El Walsh M.D. AG: GELY Report ID: [id number] Reading Location: [id number] Skip CARDENAS IMG CT PROCEDURES Final Resu lt * CT Thoracic Spine WO Contrast (05/09/2024 6:50 PM AIR TRAFFIC CONTROL OPERATOR) Anatomical Region Laterality Modality Spine N/A Computed Tomogra phy 05/09/2024 7:59 PM AIR TRAFFIC CONTROL OPERATOR Narrative 05/09/2024 8:17 PM AIR TRAFFIC CONTROL OPERATOR EXAM DESCRIPTION: CT THORACIC SPINE WO CONTRAST; CT CHEST WO CONTRAST; CT LUMBAR SPINE WO CONTRAST REASON FOR STUDY: Driving a motorized wheelchair and ran into a partition wall Patient complains of injury to her middle back and left posterior thorax. On 04/29/24 patient was backing up in her electric wheelchair and hit a partition wall. Pain is gradually worsening and aggravated by movement and deep inspiration. ; Driving a motorized wheelchair and backed into a partition wall. Pain to the left posterior thorax and lower half of the thoracic spine Patient complains of injury to her middle back and left posterior thorax. On 04/29/24 patient was backing up in her electric wheelchair and hit a partition wall. Pain is gradually worsening and aggravated by movement and deep inspiration. TECHNIQUE: CT scan of the chest performed without intravenous contrast using helical scanning technique. Dedicated CT images of the thoracic and lumbar spine were obtained without intravenous contrast. Reconstructed coronal and sagittal MPR images reviewed. All images stored on PACS. Automated exposure control was used as a dose optimization technique for this examination. COMPARISON: Chest CT dated 08/08/2023. Lumbar spine CT dated 12/06/2018 FINDINGS: The sensitivity for detection of solid visceral lesions is diminished without the use of intravenous contrast. Examination limited by motion. LUNGS: Examination is limited by respiratory motion. Increased mild subpleural ground-glass compared to the prior examination as evidence for atelectasis or scarring. Mild patchy ground-glass is seen elsewhere as evidence for atelectasis and air trapping. No interlobular septal thickening is seen to suggest edema. PLEURA: No effusion. No pneumothorax. MEDIASTINUM/FABRICE: No anterior mediastinal hematoma. No mediastinal or hilar lymphadenopathy HEART: The heart is normal in size and obscured by motion. No significant effusion CORONARY ARTERY CALCIFICATION: Moderate coronary calcification. VASCULATURE: Aorta is obscured by motion artifact. It is grossly normal in caliber. There is dilatation of the main pulmonary artery measuring 4.0 cm which likely reflects chronic pulmonary hypertension. AXILLA: Subcentimeter axillary lymph nodes are noted CHEST WALL: The entire chest wall is not included within the field of view. No gross subcutaneous edema HARDWARE/LINES/TUBES: None. UPPER ABDOMEN: No significant abnormality. MUSCULOSKELETAL: Partially imaged comminuted left shoulder fracture, seen on previous CT dated 11/07/2023. There are evidence of old single bilateral rib fractures. Evidence of an old sternal manubrial fracture is also noted. Dedicated CT images of the thoracic and lumbar spine were also obtained and reviewed. Osteopenia limits evaluation for an underlying fracture. There is grossly stable retropulsion of T12-L1 associated with a compression fracture with vertebroplasty compared to 08/08/2023. trace anterolisthesis of T8-9. Lumbar levocurvature. Mild T7 compression fracture is new compared to 08/08/2023 with minimal retropulsion of the posterosuperior endplate measuring approximately 3 mm. Compression fracture of the inferior endplate of T11 is unchanged. Again noted is severe T12 compression fracture with retropulsion status post vertebroplasty, grossly unchanged in appearance. There are sclerotic lesions within T6 and T10 which are grossly unchanged compared to the prior examination. There is likely an underlying hemangioma at T6 as well. There is a mild compression fracture of the superior endplate of L1 which was partially included within the field of view on the recent chest CT on 08/08/2023 and therefore favored to be chronic. Old-appearing right lumbar transverse process fractures are noted. There is moderate mid and lower thoracic degenerative disc disease. Moderate to severe multilevel lumbar degenerative disc disease with areas of vacuum phenomenon. Multilevel osseous neural foraminal narrowing is noted within the lumbar spine. Significant central canal narrowing at T12 to the patient's chronic retropulsion. IMPRESSION: Examination limited by significant motion artifact. 1. No gross acute cardiopulmonary abnormality. 2. Osteopenia limits evaluation for fracture. Evidence of a new mild T7 compression fracture with minimal retropulsion compared to a chest CT on 08/08/2023. 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 Follow-up lumbar spine MRI may be performed for further evaluation. THIS IS AN ELECTRONICALLY VERIFIED FINAL REPORT 05/09/2024 8:17 PM - Electronically signed by El Walsh M.D. AG: GELY Report ID: [id number] Reading Location: [id number] Procedure Note El Walsh MD - 05/09/2024 EXAM DESCRIPTION: CT THORACIC SPINE WO CONTRAST; CT CHEST WO CONTRAST;CT LUMBAR SPINE WO CONTRAST REASON FOR STUDY: Driving a motorized wheelchair and ran into apartition wall Patient complains of injury to her middle back and left posterior thorax.On 04/29/24 patient was backing up in her electric wheelchair and hit apartition wall. Pain is gradually worsening and aggravated by movement and deep inspiration. ; Driving a motorized wheelchair and backed into a partition wall. Pain to the left posterior thorax and lower half of the thoracicspine Patient complains of injury to her middle back and left posterior thorax.On 04/29/24 patient was backing up in her electric wheelchair and hit apartition wall. Pain is gradually worsening and aggravated by movement and deep inspiration. TECHNIQUE: CT scan of the chest performed without intravenous contrastusing helical scanning technique. Dedicated CT images of the thoracic andlumbar spine were obtained without intravenous contrast. Reconstructed coronaland sagittal MPR images reviewed. All images stored on PACS. Automatedexposure control was used as a dose optimization technique for this examination. COMPARISON: Chest CT dated 08/08/2023. Lumbar spine CT dated 12/06/2018 FINDINGS: The sensitivity for detection of solid visceral lesions is diminishedwithout the use of intravenous contrast. Examination limited by motion. LUNGS: Examination is limited by respiratory motion. Increased mild subpleural ground-glass compared to the prior examination as evidence for atelectasis or scarring. Mild patchy ground-glass is seen elsewhere as evidence for atelectasis and air trapping. No interlobular septalthickening is seen to suggest edema. PLEURA: No effusion. No pneumothorax. MEDIASTINUM/FABRICE: No anterior mediastinal hematoma. No mediastinal orhilar lymphadenopathy HEART: The heart is normal in size and obscured by motion. Nosignificant effusion CORONARY ARTERY CALCIFICATION: Moderate coronary calcification. VASCULATURE: Aorta is obscured by motion artifact. It is grossly normalin caliber. There is dilatation of the main pulmonary artery measuring 4.0cm which likely reflects chronic pulmonary hypertension. AXILLA: Subcentimeter axillary lymph nodes are noted CHEST WALL: The entire chest wall is not included within the field ofview. No gross subcutaneous edema HARDWARE/LINES/TUBES: None. UPPER ABDOMEN: No significant abnormality. MUSCULOSKELETAL: Partially imaged comminuted left shoulder fracture,seen on previous CT dated 11/07/2023. There are evidence of old single bilateralrib fractures. Evidence of an old sternal manubrial fracture is also noted. Dedicated CT images of the thoracic and lumbar spine were also obtainedand reviewed. Osteopenia limits evaluation for an underlying fracture. There is grossly stable retropulsion of T12-L1 associated with acompression fracture with vertebroplasty compared to 08/08/2023. traceanterolisthesis of T8-9. Lumbar levocurvature. Mild T7 compression fracture is new compared to 08/08/2023 with minimal retropulsion of the posterosuperior endplate measuring approximately 3 mm. Compression fracture of the inferior endplate of T11 is unchanged. Again noted is severe T12 compression fracture with retropulsion status post vertebroplasty, grossly unchanged in appearance. There are scleroticlesions within T6 and T10 which are grossly unchanged compared to the prior examination. There is likely an underlying hemangioma at T6 as well.There is a mild compression fracture of the superior endplate of L1 which was partially included within the field of view on the recent chest CT on 08/08/2023 and therefore favored to be chronic. Old-appearing rightlumbar transverse process fractures are noted. There is moderate mid and lower thoracic degenerative disc disease. Moderate to severe multilevel lumbar degenerative disc disease with areas of vacuum phenomenon. Multilevelosseous neural foraminal narrowing is noted within the lumbar spine. Significant central canal narrowing at T12 to the patient's chronic retropulsion. IMPRESSION: Examination limited by significant motion artifact. 1. No gross acute cardiopulmonary abnormality. 2. Osteopenia limits evaluation for fracture. Evidence of a new mild T7 compression fracture with minimal retropulsion compared to a chest CT on 08/08/2023. Evidence of significant central canal narrowing associatedwith the patient's chronic T12 burst fracture status post vertebroplasty. Follow-up lumbar spine MRI may be performed for further evaluation. THIS IS AN ELECTRONICALLY VERIFIED FINAL REPORT 05/09/2024 8:17 PM - Electronically signed by El Walsh M.D. AG: GELY Report ID: [id number] Reading Location: [id number] Skip [facility] IMG CT PROCEDURES Final Resu lt * CT Chest WO Contrast (05/09/2024 6:50 PM AIR TRAFFIC CONTROL OPERATOR) Anatomical Region Laterality Modality Body N/A Computed Tomogra phy 05/09/2024 7:5 9 PM AIR TRAFFIC CONTROL OPERATOR Narrative 05/09/2024 8:17 PM AIR TRAFFIC CONTROL OPERATOR EXAM DESCRIPTION: CT THORACIC SPINE WO CONTRAST; CT CHEST WO CONTRAST; CT LUMBAR SPINE WO CONTRAST REASON FOR STUDY: Driving a motorized wheelchair and ran into a partition wall Patient complains of injury to her middle back and left posterior thorax. On 04/29/24 patient was backing up in her electric wheelchair and hit a partition wall. Pain is gradually worsening and aggravated by movement and deep inspiration. ; Driving a motorized wheelchair and backed into a partition wall. Pain to the left posterior thorax and lower half of the thoracic spine Patient complains of injury to her middle back and left posterior thorax. On 04/29/24 patient was backing up in her electric wheelchair and hit a partition wall. Pain is gradually worsening and aggravated by movement and deep inspiration. TECHNIQUE: CT scan of the chest performed without intravenous contrast using helical scanning technique. Dedicated CT images of the thoracic and lumbar spine were obtained without intravenous contrast. Reconstructed coronal and sagittal MPR images reviewed. All images stored on PACS. Automated exposure control was used as a dose optimization technique for this examination. COMPARISON: Chest CT dated 08/08/2023. Lumbar spine CT dated 12/06/2018 FINDINGS: The sensitivity for detection of solid visceral lesions is diminished without the use of intravenous contrast. Examination limited by motion. LUNGS: Examination is limited by respiratory motion. Increased mild subpleural ground-glass compared to the prior examination as evidence for atelectasis or scarring. Mild patchy ground-glass is seen elsewhere as evidence for atelectasis and air trapping. No interlobular septal thickening is seen to suggest edema. PLEURA: No effusion. No pneumothorax. MEDIASTINUM/FABRICE: No anterior mediastinal hematoma. No mediastinal or hilar lymphadenopathy HEART: The heart is normal in size and obscured by motion. No significant effusion CORONARY ARTERY CALCIFICATION: Moderate coronary calcification. VASCULATURE: Aorta is obscured by motion artifact. It is grossly normal in caliber. There is dilatation of the main pulmonary artery measuring 4.0 cm which likely reflects chronic pulmonary hypertension. AXILLA: Subcentimeter axillary lymph nodes are noted CHEST WALL: The entire chest wall is not included within the field of view. No gross subcutaneous edema HARDWARE/LINES/TUBES: None. UPPER ABDOMEN: No significant abnormality. MUSCULOSKELETAL: Partially imaged comminuted left shoulder fracture, seen on previous CT dated 11/07/2023. There are evidence of old single bilateral rib fractures. Evidence of an old sternal manubrial fracture is also noted. Dedicated CT images of the thoracic and lumbar spine were also obtained and reviewed. Osteopenia limits evaluation for an underlying fracture. There is grossly stable retropulsion of T12-L1 associated with a compression fracture with vertebroplasty compared to 08/08/2023. trace anterolisthesis of T8-9. Lumbar levocurvature. Mild T7 compression fracture is new compared to 08/08/2023 with minimal retropulsion of the posterosuperior endplate measuring approximately 3 mm. Compression fracture of the inferior endplate of T11 is unchanged. Again noted is severe T12 compression fracture with retropulsion status post vertebroplasty, grossly unchanged in appearance. There are sclerotic lesions within T6 and T10 which are grossly unchanged compared to the prior examination. There is likely an underlying hemangioma at T6 as well. There is a mild compression fracture of the superior endplate of L1 which was partially included within the field of view on the recent chest CT on 08/08/2023 and therefore favored to be chronic. Old-appearing right lumbar transverse process fractures are noted. There is moderate mid and lower thoracic degenerative disc disease. Moderate to severe multilevel lumbar degenerative disc disease with areas of vacuum phenomenon. Multilevel osseous neural foraminal narrowing is noted within the lumbar spine. Significant central canal narrowing at T12 to the patient's chronic retropulsion. IMPRESSION: Examination limited by significant motion artifact. 1. No gross acute cardiopulmonary abnormality. 2. Osteopenia limits evaluation for fracture. Evidence of a new mild T7 compression fracture with minimal retropulsion compared to a chest CT on 08/08/2023. 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 Follow-up lumbar spine MRI may be performed for further evaluation. THIS IS AN ELECTRONICALLY VERIFIED FINAL REPORT 05/09/2024 8:17 PM - Electronically signed by El Walsh M.D. AG: GELY Report ID: [id number] Reading Location: [id number] Procedure Note El Walsh MD - 05/09/2024 EXAM DESCRIPTION: CT THORACIC SPINE WO CONTRAST; CT CHEST WO CONTRAST;CT LUMBAR SPINE WO CONTRAST REASON FOR STUDY: Driving a motorized wheelchair and ran into apartition wall Patient complains of injury to her middle back and left posterior thorax.On 04/29/24 patient was backing up in her electric wheelchair and hit apartition wall. Pain is gradually worsening and aggravated by movement and deep inspiration. ; Driving a motorized wheelchair and backed into a partition wall. Pain to the left posterior thorax and lower half of the thoracicspine Patient complains of injury to her middle back and left posterior thorax.On 04/29/24 patient was backing up in her electric wheelchair and hit apartition wall. Pain is gradually worsening and aggravated by movement and deep inspiration. TECHNIQUE: CT scan of the chest performed without intravenous contrastusing helical scanning technique. Dedicated CT images of the thoracic andlumbar spine were obtained without intravenous contrast. Reconstructed coronaland sagittal MPR images reviewed. All images stored on PACS. Automatedexposure control was used as a dose optimization technique for this examination. COMPARISON: Chest CT dated 08/08/2023. Lumbar spine CT dated 12/06/2018 FINDINGS: The sensitivity for detection of solid visceral lesions is diminishedwithout the use of intravenous contrast. Examination limited by motion. LUNGS: Examination is limited by respiratory motion. Increased mild subpleural ground-glass compared to the prior examination as evidence for atelectasis or scarring. Mild patchy ground-glass is seen elsewhere as evidence for atelectasis and air trapping. No interlobular septalthickening is seen to suggest edema. PLEURA: No effusion. No pneumothorax. MEDIASTINUM/FABRICE: No anterior mediastinal hematoma. No mediastinal orhilar lymphadenopathy HEART: The heart is normal in size and obscured by motion. Nosignificant effusion CORONARY ARTERY CALCIFICATION: Moderate coronary calcification. VASCULATURE: Aorta is obscured by motion artifact. It is grossly normalin caliber. There is dilatation of the main pulmonary artery measuring 4.0cm which likely reflects chronic pulmonary hypertension. AXILLA: Subcentimeter axillary lymph nodes are noted CHEST WALL: The entire chest wall is not included within the field ofview. No gross subcutaneous edema HARDWARE/LINES/TUBES: None. UPPER ABDOMEN: No significant abnormality. MUSCULOSKELETAL: Partially imaged comminuted left shoulder fracture,seen on previous CT dated 11/07/2023. There are evidence of old single bilateralrib fractures. Evidence of an old sternal manubrial fracture is also noted. Dedicated CT images of the thoracic and lumbar spine were also obtainedand reviewed. Osteopenia limits evaluation for an underlying fracture. There is grossly stable retropulsion of T12-L1 associated with acompression fracture with vertebroplasty compared to 08/08/2023. traceanterolisthesis of T8-9. Lumbar levocurvature. Mild T7 compression fracture is new compared to 08/08/2023 with minimal retropulsion of the posterosuperior endplate measuring approximately 3 mm. Compression fracture of the inferior endplate of T11 is unchanged. Again noted is severe T12 compression fracture with retropulsion status post vertebroplasty, grossly unchanged in appearance. There are scleroticlesions within T6 and T10 which are grossly unchanged compared to the prior examination. There is likely an underlying hemangioma at T6 as well.There is a mild compression fracture of the superior endplate of L1 which was partially included within the field of view on the recent chest CT on 08/08/2023 and therefore favored to be chronic. Old-appearing rightlumbar transverse process fractures are noted. There is moderate mid and lower thoracic degenerative disc disease. Moderate to severe multilevel lumbar degenerative disc disease with areas of vacuum phenomenon. Multilevelosseous neural foraminal narrowing is noted within the lumbar spine. Significant central canal narrowing at T12 to the patient's chronic retropulsion. IMPRESSION: Examination limited by significant motion artifact. 1. No gross acute cardiopulmonary abnormality. 2. Osteopenia limits evaluation for fracture. Evidence of a new mild T7 compression fracture with minimal retropulsion compared to a chest CT on 08/08/2023. Evidence of significant central canal narrowing associatedwith the patient's chronic T12 burst fracture status post vertebroplasty. Follow-up lumbar spine MRI may be performed for further evaluation. THIS IS AN ELECTRONICALLY VERIFIED FINAL REPORT 05/09/2024 8:17 PM - Electronically signed by El Walsh M.D. AG: GELY Report ID: [id number] Reading Location: [id number] Skip [facility] IMG CT PROCEDURES Final Resu lt * Screening Mammogram Bilateral W Remi (04/10/2023 1:57 PM AIR TRAFFIC CONTROL OPERATOR) Anatomical Region Laterality Modality Breast Bilateral Mammography 04/10/2023 4:42 PM AIR TRAFFIC CONTROL OPERATOR Impressions 04/10/2023 4:42 PM AIR TRAFFIC CONTROL OPERATOR There is no mammographic evidence of malignancy. A 1 year screening mammogram is recommended. BI-RADS: 2 - Benign. The patient has been or will be contacted. The patient will be entered into a reminder system with a target due date of 1 year for her next mammogram. Electronically signed by: Gilda Tinsley M.D. Narrative 04/10/2023 4:42 PM AIR TRAFFIC CONTROL OPERATOR EXAMINATION: SCREENING MAMMOGRAM BILATERAL W REMI ORDERING HEALTHCARE PROVIDER: SELF SCREENING MAMMOGRAM HISTORY: Routine screening mammography. COMPARISON: 11/27/2017, 07/26/2017, 06/20/2017, 06/13/2017, 12/08/2016, 12/04/2015, 11/19/2015, 11/02/2015, and 10/14/2015 - [facility] TECHNIQUE: CC and MLO views of the bilateral breasts were obtained with digital technique using breast tomosynthesis with C view. Computer aided detection was utilized. FINDINGS: DENSITY: There are scattered fibroglandular elements in the bilateral breasts. BREASTS: There are stable appearing areas of architectural distortion in the central right breast (anterior depth) and outer left breast (middle depth), corresponding with sites of prior benign surgical excision. There are no suspicious masses, suspicious calcifications, or other suspicious findings in either breast. There has been no suspicious interval change. us Self Screening Mammogram IMG MAMMO PROCEDURES Fi nal Result * Dexa Axial Skeleton Bone Density 1 Or 2 Site (02/16/2022 2:01 PM CDT) Anatomical Region Laterality Modality Body N/A Other 02/16/2022 8:39 PM CDT Narrative 02/16/2022 8:41 PM CDT EXAM DESCRIPTION: DEXA AXIAL SKELETON BONE DENSITY 1 OR MORE SITES REASON FOR STUDY: 81 y/o year old F with given history of screening. Postmenopausal Adoption Manager/Model: [employer] SL (S/N [id number]) CLINICAL INFORMATION: Current height: 62 inches Maximum height: 64 inches Weight: 263 pounds Risk factors: Adult fracture, postmenopausal COMPARISON: 05/03/2019. FINDINGS: AP LUMBAR SPINE L1-L4: Total BMD is 1.171 g/cm2 T-score is 1.1 Dissimilar scan types or analysis methods precludes assessment for calculating a significant change. LEFT HIP: Total BMD is 0.842 g/cm2 T-score is -0.8 Dissimilar scan types or analysis methods precludes assessment for calculating a significant change. Femoral neck BMD is 0.427 g/cm2 T-score is -3.8 FRAX: FRAX not reported due to T-scores of hip, femoral neck and/or spine being at or below -2.5 (Osteoporosis). IMPRESSION: Based on the left femoral neck bone mineral density (T-score -3.8 ) the patient has osteoporosis . REFERENCE: Bone mineral density: Normal (T-score above or = -1.0) Low bone mass (T-score between -1.0 and -2.5) replaces the previously used term osteopenia Osteoporosis (T-score = or below -2.5) Medical evaluation for secondary causes of low bone mineral density may be appropriate. FRAX is a World Health Organization validated fracture risk assessment tool that calculates a person's 10 year probability of a major osteoporosis related fracture and hip fracture. According to the National Osteoporosis Foundation guidelines, postmenopausal women and men age 50 or older with low bone mass and a 10 year probability of a major osteoporosis related fracture = or greater than 20% or a 10 year probability of a hip fracture = or greater than 3% should be considered for treatment. For further information, including treatment recommendations, please refer to the 2013 ISCD Official Positions (http://www.iscd.org) and the NOF's Clinician's Guide to Prevention and Treatment of Osteoporosis (http://www.nof.org/professionals/clinical-guidelines) THIS IS AN ELECTRONICALLY VERIFIED FINAL REPORT 02/16/2022 8:41 PM - Electronically signed by Octavio Harrington M.D. MF: [email or web address] Report ID: [id number] Reading Location: [id number] Procedure Note Octavio Harrington MD - 02/16/2022 EXAM DESCRIPTION: DEXA AXIAL SKELETON BONE DENSITY 1 OR MORE SITES REASON FOR STUDY: 81 y/o year old F with given history ofscreening. Postmenopausal Adoption Manager/Model: [employer] (S/N [id number]) CLINICAL INFORMATION: Current height: 62 inches Maximum height: 64 inches Weight: 263 pounds Risk factors: Adult fracture, postmenopausal COMPARISON: 05/03/2019. FINDINGS: AP LUMBAR SPINE L1-L4: Total BMD is 1.171 g/cm2 T-score is 1.1 Dissimilar scan types or analysis methods precludes assessment for calculating a significant change. LEFT HIP: Total BMD is 0.842 g/cm2 T-score is -0.8 Dissimilar scan types or analysis methods precludes assessment for calculating a significant change. Femoral neck BMD is 0.427 g/cm2 T-score is -3.8 FRAX: FRAX not reported due to T-scores of hip, femoral neck and/or spine beingat or below -2.5 (Osteoporosis). IMPRESSION: Based on the left femoral neck bone mineral density (T-score -3.8 )the patient has osteoporosis . REFERENCE: Bone mineral density: Normal (T-score above or = -1.0) Low bone mass (T-score between -1.0 and -2.5) replaces thepreviously used term osteopenia Osteoporosis (T-score = or below -2.5) Medical evaluation for secondary causes of low bone mineral density may be appropriate. FRAX is a World Health Organization validated fracture risk assessmenttool that calculates a person's 10 year probability of a major osteoporosisrelated fracture and hip fracture. According to the National OsteoporosisFoundation guidelines, postmenopausal women and men age 50 or older with low bonemass and a 10 year probability of a major osteoporosis related fracture = or greater than 20% or a 10 year probability of a hip fracture = or greaterthan 3% should be considered for treatment. For further information, including treatment recommendations, please referto the 2013 ISCD Official Positions (http://www.iscd.org) and the NOF's Clinician's Guide to Prevention and Treatment of Osteoporosis (http://www.nof.org/professionals/clinical-guidelines) THIS IS AN ELECTRONICALLY VERIFIED FINAL REPORT 02/16/2022 8:41 PM - Electronically signed by Octavio Harrington M.D. MF: [email or web address] Report ID: [id number] Reading Location: [id number] Julito Eisenberg MD IMG DXA PROCEDURES Final Result * COLONOSCOPY REPORT (10/28/2016) Anatomical Region Laterality Modality Other us Provider Scanning GI PROCEDURE ORDERABLES Final Result from Last 3 Months or Most Recently Relevant to Health Maintenance [place] [address] [employer] [place] [address] MEDICARE COMMERCIAL GENERIC MEDICARE COMMERCIAL GENERIC MEDICARE COMMERCIAL GENERIC Advance Directives For more information, please contact: [phone] Documents on File Type Date Recorded Patient Microbiology Coordinator Expl anation ADVANCE DIRECTIVE 05/23/2024 1:37 PM Power of Steamfitter Supervisor-Medical ADVANCE DIRECTIVE 05/10/2024 1:14 AM POLS T - Phys Order for PT Preferences ADVANCE DIRECTIVE 03/07/2024 7:30 AM POLS T - Phys Order for PT Preferences * Full Code (Latest Code Status on File) Date Activated Date Inactivated Comments 05/16/2024 9:46 PM 05/19/2024 2:34 PM * Full Code Date Activated Date Inactivated Comments 11/07/2023 8:07 PM 11/10/2023 5:45 PM * Full Code Date Activated Date Inactivated Comments 02/01/2019 10:29 PM 02/06/2019 9:05 PM Care Teams Manager Local Relationship Specialty Start Date End Date Miscellaneous, Not In File PCP - General 05/09/24 Jeet Mirza MD [address] [place] [address] Primary Eye Care Provider Ophthalmology 10/23/20 Mauri Cannon MD [address] [facility] [address] [place] [address] Enlisted Aircrew/Aerial Observer/Gunner Cardiology 10/23/20 Kevin Will MD PhD [address] [address] Consulting Physician Ophthalmology 01/29/21 Benji Stark MD [address] [address] Surgeon Ophthalmology 01/29/21
--- OUTSIDE RECORDS SUMMARY | 2024-07-11 21:20 | XMS_ITS | Referral Summary ---
Author Organization [facility] Address [address] [place] [address] Care Team Providers Care Button Riveter Name Role Phone Jeet Mirza MD Unavailable [phone] Mauri Cannon MD Unavailable Kevin Will MD PhD Unavailable + Benji Stark MD Unavailable [phone] Miscellaneous, Not In File Primary Care Provider Unavailable Encounters Date Type Department Care Team Description 05/19/2024 10:30 AM [facility]IDE - 05/19/2024 11:59 PM [facility]IDE Hospital Encounter [facility] Emergency, Room R Discharge Disposition: Discharge to home or self care 05/16/2024 4:41 PM [facility] GLACIER GUIDE - 05/19/2024 10:28 AM [facility] OR GLACIER GUIDE Hospital Encounter [facility] IMU [address] [place] [address] aLly Cazares MD Compression fracture of body of thoracic vertebra (CMS/HCC) (HCC) (Primary Dx); Osteopenia of lumbar spine; Chronic arthritis; 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, unspecified fracture morphology, subsequent encounter; Wound of right lower extremity, subsequent encounter; Chronic diastolic heart failure (HCC); Primary hypertension; Macrocytic anemia; Pure hypercholesterolemia ; Acquired hypothyroidism; Gastro-esophageal reflux disease without esophagitis; BMI 45.0-49.9, adult ([facility]LY [facility]) Discharge Disposition: Discharge to an IP Rehab facility 05/16/2024 4:05 PM [facility] GLACIER GUIDE - 05/16/2024 11:59 PM [facility]ACIER GUIDE Hospital Encounter [facility] AMBULANCE BILLING Emergency, Room R Discharge Disposition: Discharge to home or self care 05/09/2024 12:59 PM [facility]IER GUIDE - 05/09/2024 11:59 PM [facility]IDE Hospital Encounter [facility] AMBULANCE BILLING Emergency, Room R Discharge Disposition: Discharge to home or self care 05/09/2024 3:07 PM [facility] GLACIER GUIDE - 05/09/2024 9:21 PM M[facility] OR GLACIER GUIDE Emergency [facility] Emergency Department [address] [place] [address] Closed wedge compression fracture of T7 vertebra, initial encounter ([facility]) (Primary Dx); Chest wall muscle strain, initial encounter; Strain of thoracic back region; Lumbar strain, initial encounter Discharge Disposition: Discharge to home or self care from Last 3 Months Allergies No known active allergies Medications metoprolol [...] mouth daily 4 Active vit A,C and P-dcldod-whmfxk ls (OCUVITE with LUTEIN) 300 mcg-200 mg-27 [...] I have recommended she follow-up with her semaphore operator for repeat echocardiogram Chronic left shoulder pain 08/10/2023 Assessment & Plan (08/10/2023 12:08 PM CDT): Discussed options including x-ray, physical therapy, referral to refractory specialist. She declines referral today. She is [...] 1.1 cm , mild MR, RVSP 36 10/01 echo: EF 60%, mild SANDEEP, moderate , [...] Observe. Assessment & Plan (06/30/2022 4:31 PM MOUNTAIN OR GLACIER GUIDE): Stable. Observe. Assessment & Plan (02/10/2022 3:46 PM CDT): s/p CE/PCIOL OD - Doing well with progressive add. Strict monocular precautions. - Reviewed signs/symptoms endophthalmitis, RT/RD; patient to call immediately if any worsening vision, pain, redness, flashes/floaters/curtains. - monocular precautions. F/u in 6 months for DFE -continued scheduled f/u with retina team Assessment & Plan (07/08/2021 9:14 AM MOUNTAIN OR GLACIER GUIDE): POM #2 s/p CE/PCIOL OD - Doing well, patient likely needing stronger near add with progressive lens and higher add segment. Reprinted MRx. - Reviewed signs/symptoms endophthalmitis, RT/RD; patient to call immediately if any worsening vision, pain, redness, flashes/floaters/curtains. - monocular precautions. F/u in 6 months for DFE Assessment & Plan (06/04/2021 9:50 AM MOUNTAIN OR GLACIER GUIDE): Recent CEIOL OD with Dr. Stark 04/2021 Doing well with vision improvement Assessment & Plan (05/26/2021 10:11 AM MOUNTAIN OR GLACIER GUIDE): POM #1 s/p CE/PCIOL OD - Doing [...] today Assessment & Plan (04/28/2021 3:41 PM MOUNTAIN OR GLACIER GUIDE): POW #1 s/p CE/PCIOL OD - Doing [...] MRx Assessment & Plan (04/23/2021 2:29 PM MOUNTAIN OR GLACIER GUIDE): POD #1 s/p CE/PCIOL OD - Doing [...] f/u. Assessment & Plan (06/30/2022 4:22 PM MOUNTAIN OR GLACIER GUIDE): Stable on exam and OCT today. Continue to follow q4-6 mos. Sooner prn. Assessment & Plan (06/04/2021 9:49 AM MOUNTAIN OR GLACIER GUIDE): Stable, remains dry observe Assessment & Plan [...] nutrient supplementation after she sees in the [employer]. 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 Assessment & Plan (06/30/2022 4:22 PM MOUNTAIN OR GLACIER GUIDE): Stable on exam and OCT. Assessment & Plan (12/03/2021 10:37 AM CDT): Stable, limiting vision OS especially No fluid now, one injection remote Assessment & Plan (06/04/2021 9:59 AM MOUNTAIN OR GLACIER GUIDE): Stable today with possibly minimal IRF Continue [...] loss in 06/2020. She was seen at [facility] diagnosed with exduative AMD OS, treated with [...] field by Dr. Dumont in 2020. Needs [facility] field to confirm. Pt had difficulty with positioning today. Will re-attempt at f/u. Pt understands that she's likely not legal to drive. Will discuss further at f/u. Monocular precautions given limited visual potential OS. Assessment & Plan (03/08/2023 9:45 AM CDT): Hx of sequential naion with significantly reduced acuity OS and field OU. Offered consult with [facility] low vision clinic but pt defers for now. Feels ADLs are being met. Struggles with reading fluency. Discussed good lighting. F/u in 6 mos for drivers license VF. Assessment & Plan (06/30/2022 4:30 PM MOUNTAIN OR GLACIER GUIDE): Hx of sequential naion with significantly reduced acuity OS and field OU. Offered consult with [facility] low vision clinic but pt defers for now. Feels ADLs are being met. Struggles with reading fluency. Discussed good lighting. Assessment & Plan (06/04/2021 9:50 AM MOUNTAIN OR GLACIER GUIDE): Stable, limiting vision OS especially Previously seen [...] 06/03/2020 Assessment & Plan (06/03/2020 5:52 PM MOUNTAIN OR GLACIER GUIDE): I looked at Mrs. Anne 's thyroid [...] 07/13 Assessment & Plan (06/06/2019 10:01 AM MOUNTAIN OR GLACIER GUIDE): Benefits of weight loss discussed. Reviewed recommendations [...] vision prior to surgery. Okay to schedule March/April. . Assessment & Plan (01/21/2021 8:25 AM [...] CE/IOL would be appropriate with her primary [employer] Dr. Mirza. Abscess of right thigh 06/06/201910/01 Assessment & Plan (06/06/2019 10:01 AM MOUNTAIN OR GLACIER GUIDE): Healing well at this time. Patient instructed to keep area clean and dry. Notify office with absolutely any worsening symptoms. Patient and caregiver verbalized understanding agreed to plan of care at this time they will notify office with absolutely any changes. Abscess 05/23/2019 06/06/2019 Assessment & Plan (05/23/2019 1:09 PM MOUNTAIN OR GLACIER GUIDE): Abscess to right medial thigh 2 x [...] (07/17/2018): Added automatically from request for surgery [id number] Supraventricular tachycardia 07/27/2017 06/06/2019 Morbid childhood obesity [...] CDT): -will obtain records from Dr Mirza Immunizations Immunization Administration Dates Next Due Influenza, [...] 06/07/2023 [facility] LIVE 02/17/2014,08/24/2010 [facility]ER Recombinant 01/14/2021,10/29/2020 Social History Tobacco Use Types Packs/Day Years [...] materials from doctor or pharmacy Sometimes 08/10/2022 [facility] Utilities Answer Date Recorded In the past 12 months has e [employer], [employer], oil, or water [employer] threatened to shut off services in your [...] often do you attend chur ch or christianity services? Never 11/09/2023 Do you belong to any clubs o r organizations such as mandaeism groups, unions, fraternal or athletic groups, or [...] any time in the past 12 m [facility], were you homeless or living in a halfway (including now)? No 11/09/2023 Personal Safety Answer Date Recorded Have you ever been in or are you currently in a harmful physical or emotional relationship or is someone making you feel afraid or unsafe? Denies 05/16/2024 Comments No Sex and Gender Information Value Date Recorded Sex Assigned at Not on file Legal Sex Female 11:51 PM MOUNTAIN OR GLACIER GUIDE Gender Identity Not on file Sexual Orientation Not on file Last Filed Vital Signs Vital Sign Reading Time Taken Comments Blood Pressure 112/70 05/19/2024 8:36 AM MOUNTAIN OR GLACIER GUIDE Pulse 62 05/19/2024 7:27 AM MOUNTAIN OR GLACIER GUIDE Temperature 36.4 C (97.6 F) 05/19/2024 7:27 AM MOUNTAIN OR GLACIER GUIDE Respiratory Rate 20 05/19/2024 7:27 AM MOUNTAIN OR GLACIER GUIDE Oxygen Saturation 89% 05/19/2024 7:2 7 AM MOUNTAIN OR GLACIER GUIDE rn notified Inhaled Oxygen Concentration - - Weight 121.7 kg (268 lb 4.8 oz) 05/16/2024 9:30 PM MOUNTAIN OR GLACIER GUIDE Height 157.5 cm (5' 2 ) 05/16/2024 9:30 PM MOUNTAIN OR GLACIER GUIDE Body Mass Index 49.07 05/16/2024 9:30 PM MOUNTAIN OR GLACIER GUIDE Plan of Treatment Not on file Medical Devices Implanted Type Area Machine Precision Engraver Device Identifier Shelf Expiration Date Model / Serial / Lot Dayron Surgical [id number] Acrysof Iq Natural Stableforce Acrysert 6mm 13mm 1 Piece Foldable - [id number] - [id number] Implanted:Qty: 1 on 04/22/2021 by Benji Stark MD at [facility] Lens Right: Eye Dayron [employer] [id number] 11/17/2025 [id number] 0 / [id number] / 0 Procedures Procedure Name Priority Date/Time Associated Diagnosis Comments COVID-19 CORONAVIRUS RNA Routine 05/19/2024 8:35 AM MOUNTAIN OR GLACIER GUIDE AEROBIC AND ANAEROBIC CULTURE AND GRAM STAIN Routine 05/17/2024 9:31 AM MOUNTAIN OR GLACIER GUIDE EGFR Routine 05/17/2024 6:51 AM MOUNTAIN OR GLACIER GUIDE DIFFERENTIAL AUTO Routine 05/17/2024 6:5 1 AM MOUNTAIN OR GLACIER GUIDE CBC WITH AUTO DIFFERENTIAL Routine 05/17/2024 6:51 AM MOUNTAIN OR GLACIER GUIDE BASIC METABOLIC PANEL Routine 05/17/2024 6:51 AM MOUNTAIN OR GLACIER GUIDE XR CHEST 1 VIEW IP Routine 05/16/2024 10:49 PM MOUNTAIN OR GLACIER GUIDE DIFFERENTIAL AUTO STAT 05/16/2024 5:1 1 PM MOUNTAIN OR GLACIER GUIDE CBC WITH AUTO DIFFERENTIAL STAT 05/16/2024 5:11 PM MOUNTAIN OR GLACIER GUIDE EGFR STAT 05/16/2024 5:11 PM MOUNTAIN OR GLACIER GUIDE COMPREHENSIVE METABOLIC PANEL STAT 05/16/2024 5:11 PM M[facility] OR [facility]ACIER GUIDE CT THORACIC SPINE WO CONTRAST ED 05/09/2024 6:50 PM MOUNTAIN OR GLACIER GUIDE CT LUMBAR SPINE WO CONTRAST ED 05/09/2024 6:50 PM MOUNTAIN OR GLACIER GUIDE CT CHEST WO CONTRAST ED 05/09/2024 6:50 PM MOUNTAIN OR GLACIER GUIDE SCREENING MAMMOGRAM BILATERAL W REMI Schedule Routine, Read Routine (OP Routine) 04/10/2023 1:57 PM MOUNTAIN OR GLACIER GUIDE Screening mammogram, encounter for DEXA AXIAL SKELETON BONE DENSITY 1 OR MORE SITES Schedule Routine, Read Routine (OP Routine) 02/16/2022 2:01 PM CDT Osteoporosis, unspecified osteoporosis type, unspecified pathological fracture presence COLONOSCOPY REPORT 10/28/2016 from Last 3 Months or Most Recently Relevant to Health Maintenance Results * COVID-19 Coronavirus RNA Nasopharyngeal (05/19/2024 8:35 AM MOUNTAIN OR GLACIER GUIDE) COVID-19 RNA Negative Negative Nasopharyngeal 05/19/2024 8: 35 AM M[facility] OR GLACIER GUIDE 05/19/2024 8:44 AM MOUNTAIN OR GLACIER GUIDE Yuliya TABOR (VLADIMIR) - 05/19/2024 9:58 AM MOUNTAIN OR GLACIER GUIDE Is the patient experiencing any symptoms consistent with COVID (eg. Fever, cough, shortness of breath)?->No What is the reason for testing?->Screening for post-acute care placement Interpretive data: Testing performed by [facility]. This test is performed using the Embrace+ Xpert Xpress CoV-2 plus assay. This is a real-time RT-PCR test intended for the qualitative detection of nucleic acid from the SARS-CoV-2. This assay has been cleared by the [place] Food and Drug administration. The performance characteristics have been verified by [facility]. Results must be considered in the clinical context, and a negative result does not rule out infection. Interpretive data last revised 2023. Interpretive data: Testing performed by [facility]. This test is performed using the Embrace+ Xpert Xpress CoV-2 plus assay. This is a real-time RT-PCR test intended for the qualitative detection of nucleic acid from the SARS-CoV-2. This assay has been cleared by the [place] Food and Drug administration. The performance characteristics have been verified by [facility]. Results must be considered in the clinical context, and a negative result does not rule out infection. Interpretive data last revised 2023. Laly Cazares MD LAB MICROBIOLOGY - GENERA L ORDERABLES Final Result MICHAEL TABOR (VLADIMIR) 1 [facility] Department [place] [address] * (ABNORMAL) Aerobic and anaerobic culture and gram stain Wound Leg, right (05/17/2024 9:31 AM MOUNTAIN OR GLACIER GUIDE) Direct Specimen Exam Stain: No polymorphonuclear leukocytes seen. Rare Gram Positive Cocci Comment:Testing performed by : [facility], [address] [place]., [address] Report Final Report: Few Mixed microorganisms. (.) MICHAEL TABOR (VLADIMIR) Comment:Testing performed by : [facility], [address] [place]., [address] Organism MIXED MICROORGANISMS. MICHAEL TABOR (VLADIMIR) Wound (Leg, right) 05/17/2024 9:31 AM MOUNTAIN OR GLACIER GUIDE 05/17/2024 12:13 PM MOUNTAIN OR GLACIER GUIDE Narrative MICHAEL TABOR (VLADIMIR) - 05/21/2024 3:06 PM MOUNTAIN OR GLACIER GUIDE Testing performed by [facility] Microbiology Laboratory ([phone]) Specimens submitted from normally sterile body sites [...] interpretive data was last revised on 2019. us Gloria Tan MD LAB MICROBIOLOGY - GENERAL ORDERABLES Final Result Performing Organization Address City/[facility]/ZIP Co de Phone Number [facility]HAEL [facility] [place]) 1 [facility] Department [place] [employer] [address] * eGFR (05/17/2024 6:51 AM MOUNTAIN OR GLACIER GUIDE) eGFR 60 >=60 mL/min/1. 73 m2 Comment: [...] last reviewed 2021. Blood 05/17/2024 6:51 AM MOUNTAIN OR GLACIER GUIDE 05/17/2024 7:13 AM MOUNTAIN OR GLACIER GUIDE us Laly Cazares MD LAB BLOOD ORDERABLES Melodie l Result [facility] ([place]) 1 [facility] Department [place] [address] * Differential, auto (05/17/2024 6:51 AM MOUNTAIN OR GLACIER GUIDE) Neutrophil abs 4.8 1.5 - 6.5 K/cumm Imm gran abs 0.0 0.0 - 0.1 K/cumm [facility] ([place]) Lymphocyte abs 2.0 0.8 - 3.3 K/cumm [facility] ([place]) Monocyte abs 0.8 0.2 - 0.8 K/cumm [facility] ([facility]) Eosinophil abs 0.5 0.0 - 0.5 K/cumm [facility] ([place]) Basophil abs 0.0 0.0 - 0.1 K/cumm [facility] ([place]) Neutrophil pct 59.1 % [facility] ([place]) Comment: Interpretive Data Percent cell count reference ranges are not reported, since discordance with absolute values may lead to misinterpretation of CBC data. Current Interpretive Data was last revised on 2017. Imm gran pct 0.4 % [facility] ([place]) Comment: Interpretive Data Percent cell count reference [...] revised on 2017. Blood 05/17/2024 6:51 AM MOUNTAIN OR GLACIER GUIDE 05/17/2024 7:13 AM MOUNTAIN OR GLACIER GUIDE Laly Cazares MD LAB BLOOD ORDERABLES Melodie askew Result Performing Organization Address City/[facility]/ZIP Co de Phone Number [facility] ([place]) 1 [facility] Department [place] [address] * (ABNORMAL) CBC with auto differential (05/17/2024 6:51 AM MOUNTAIN OR GLACIER GUIDE) WBC 8.1 3.8 - 9.9 K/cumm Hgb [...] [facility] ([facility]) Blood 05/17/2024 6:51 AM MOUNT[facility] OR GLACIER GUIDE 05/17/2024 7:13 AM MOUNTAIN OR GLACIER GUIDE Laly Cazares MD LAB BLOOD ORDERABLES Melodie askew Result Performing Organization Address City/[facility]/ZIP Co de Phone Number [facility] ([place]) 1 [facility] Department [place] [address] * Basic metabolic panel (05/17/2024 6:51 AM MOUNTAIN OR GLACIER GUIDE) Sodium 143 135 - 145 mmol/L Potassium, pl 3.9 3.3 - 4.9 mmol/L [facility] ([facility]) Chloride 107 97 - 110 mmol/L [facility] ([facility]) CO2 27 22 - 32 mmol/L [facility] ([facility]) Anion gap 10 2 - 15 mmol/L [facility] ([facility]) BUN 19 6 - 25 mg/dL [facility] (VLADIMIR) Creatinine 0.95 0.60 - 1.10 mg/dL [facility] (VLAD[place]IR) Glucose 95 70 - 199 mg/dL [facility] (VLADIMIR) Comment: Interpretive Data Fasting glucose >/= [...] 2022. Calcium 9.4 8.5 - 10.3 mg/dL [facility] (VLAD[place]IR) Blood 05/17/2024 6:51 AM MOUNTAIN OR GLACIER GUIDE 05/17/2024 7:13 AM MOUNTAIN OR GLACIER GUIDE us Laly Cazares MD LAB BLOOD ORDERABLES Melodie askew Result MICHAEL TABOR ([place]) 1 [facility] Department [place] [address] * XR CHEST 1 VIEW PORTABLE (05/16/2024 10:49 PM MOUNTAIN OR GLACIER GUIDE) Anatomical Region Laterality Modality Body, Chest N/A Computed Radiogr aphy 05/17/2024 12:5 6 AM MOUNTAIN OR GLACIER GUIDE Narrative 05/17/2024 12:59 AM MOUNTAIN OR GLACIER GUIDE EXAM DESCRIPTION: XR CHEST 1 VIEW REASON [...] Benji Sharp M.D. AR: LISETH Report ID: [id number] [place] Location: [id number] Procedure Note Benji Sharp MD - 05/17/2024 [...] Benji Sharp M.D. AR: LISETH Report ID: [id number] [place] Location: [id number] Laly Cazares MD IMG XR PROCEDURES Final R esult * (ABNORMAL) eGFR (05/16/2024 5:11 PM MOUNTAIN OR GLACIER GUIDE) eGFR 49(L) >=60 mL/min/1. 73 m2 Comment: [...] last reviewed 2021. Blood 05/16/2024 5:11 PM MOUNTAIN OR GLACIER GUIDE 05/16/2024 5:23 PM MOUNTAIN OR GLACIER GUIDE us Savannah CARDENAS LAB BLOOD ORDERABLES Melodie l Result [facility] ([place]) 1 [facility] Department [place] [address] * Differential, auto (05/16/2024 5:11 PM MOUNTAIN OR GLACIER GUIDE) Pathologist [facility] Neutrophil abs 5.1 1.5 - 6.5 K/cumm Imm gran abs 0.0 0.0 - 0.1 K/cumm [facility] ([facility]) Lymphocyte abs 1.4 0.8 - 3.3 K/cumm [facility] ([place]) Monocyte abs 0.7 0.2 - 0.8 K/cumm [facility] ([facility]) Eosinophil abs 0.5 0.0 - 0.5 K/cumm [facility] ([facility]) Basophil abs 0.0 0.0 - 0.1 K/cumm [facility] ([facility]) Neutrophil pct 66.6 % [facility] ([place]) Comment: Interpretive Data Percent cell count reference [...] revised on 2017. Basophil pct 0.1 % [facility] ([facility]) Comment: Interpretive Data Percent cell count reference ranges are not reported, since discordance with absolute values may lead to misinterpretation of CBC data. Current Interpretive Data was last revised on 2017. Blood 05/16/2024 5:11 PM MOUNTAIN OR GLACIER GUIDE 05/16/2024 6:09 PM MOUNTAIN OR GLACIER GUIDE Savannah CARDENAS LAB BLOOD ORDERABLES Melodie askew Result MICHAEL TABOR ([place]) 1 [facility] Department [place] [address] * (ABNORMAL) CBC with auto differential (05/16/2024 5:11 PM MOUNTAIN OR GLACIER GUIDE) WBC 7.6 3.8 - 9.9 K/cumm Hgb 10.3(L) 11.9 - 15.5 g/dL MICHAEL TABOR (VLADIMIR) Hct 33.2(L) 35.6 - 45.5 % [...] (VLADIMIR) Blood (Blood, Venous) 05/16/2024 5:11 PM MOUNTAIN OR GLACIER GUIDE 05/16/2024 6:09 PM MOUNTAIN OR GLACIER GUIDE us Savannah CARDENAS LAB BLOOD ORDERABLES Melodie askew Result [facility] ([place]) 1 [facility] Department [place] [address] * (ABNORMAL) Comprehensive metabolic panel (05/16/2024 5:11 PM MOUNTAIN OR GLACIER GUIDE) Sodium 143 135 - 145 mmol/L Potassium, [...] [facility] ([facility]) Blood 05/16/2024 5:11 PM MOUNTAIN OR GLACIER GUIDE 05/16/2024 5:23 PM MOUNTAIN OR GLACIER GUIDE Savannah CARDENAS LAB BLOOD ORDERABLES Melodie l Result [facility] (VLADIMIR) 1 [facility] Department [place] [address] * CT Lumbar Spine WO Contrast (05/09/2024 6:50 PM MOUNTAIN OR GLACIER GUIDE) Anatomical Region Laterality Modality Spine N/A Computed Tomogra phy 05/09/2024 7:59 PM MOUNTAIN OR GLACIER GUIDE Narrative 05/09/2024 8:17 PM MOUNTAIN OR GLACIER GUIDE EXAM DESCRIPTION: CT THORACIC SPINE WO CONTRAST; [...] El Walsh M.D. AG: GELY Report ID: [id number] [place] Location: [id number] Procedure Note El Walsh MD - 05/09/2024 [...] El Walsh M.D. AG: GELY Report ID: [id number] Reading Location: [id number] Skip CARDENAS IMG CT PROCEDURES Final Resu lt * CT Thoracic Spine WO Contrast (05/09/2024 6:50 PM MOUNTAIN OR GLACIER GUIDE) Anatomical Region Laterality Modality Spine N/A Computed Tomogra phy 05/09/2024 7:59 PM MOUNTAIN OR GLACIER GUIDE Narrative 05/09/2024 8:17 PM MOUNTAIN OR GLACIER GUIDE EXAM DESCRIPTION: CT THORACIC SPINE WO CONTRAST; [...] El Walsh M.D. AG: GELY Report ID: [id number] Reading Location: [place] [address] Procedure Note El Walsh MD - 05/09/2024 [...] El Walsh M.D. AG: GELY Report ID: [id number] Reading Location: [place] [address] us Skip CARDENAS IMG CT PROCEDURES Final Resu lt * CT Chest WO Contrast (05/09/2024 6:50 PM MOUNTAIN OR GLACIER GUIDE) Anatomical Region Laterality Modality Body N/A Computed Tomogra phy 05/09/2024 7:59 PM MOUNTAIN OR GLACIER GUIDE Narrative 05/09/2024 8:17 PM MOUNTAIN OR GLACIER GUIDE EXAM DESCRIPTION: CT THORACIC SPINE WO CONTRAST; [...] El Walsh M.D. AG: GELY Report ID: [id number] Reading Location: [id number] Procedure Note El Walsh MD - 05/09/2024 [...] El Walsh M.D. AG: GELY Report ID: [id number] Reading Location: [id number] Skip CARDENAS IMG CT PROCEDURES Final Resu lt * Screening Mammogram Bilateral W Remi (04/10/2023 1:57 PM MOUNTAIN OR GLACIER GUIDE) Anatomical Region Laterality Modality Breast Bilateral Mammography 04/10/2023 4:42 PM MOUNTAIN OR GLACIER GUIDE Impressions 04/10/2023 4:42 PM MOUNTAIN OR GLACIER GUIDE There is no mammographic evidence of malignancy. A 1 year screening mammogram is recommended. BI-RADS: 2 - Benign. The patient has been or will be contacted. The patient will be entered into a reminder system with a target due date of 1 year for her next mammogram. Electronically signed by: Gilda Tinsley M.D. Narrative 04/10/2023 4:42 PM MOUNTAIN OR GLACIER GUIDE EXAMINATION: SCREENING MAMMOGRAM BILATERAL W REMI ORDERING HEALTHCARE PROVIDER: SELF SCREENING MAMMOGRAM HISTORY: Routine screening mammography. COMPARISON: 11/27/2017, 07/26/2017, 06/20/2017, 06/13/2017, 12/08/2016, 12/04/2015, 11/19/2015, 11/02/2015, and 10/14/2015 - [facility] TECHNIQUE: CC and MLO views of the [...] F with given history of screening. Postmenopausal Machine Precision Engraver/Model: Bactest Discovery SL (S/N [id number]) CLINICAL INFORMATION: Current height: 62 inches Maximum [...] Octavio Harrington M.D. MF: KENTON Report ID: [id number] Reading Location: [id number] Procedure Note Octavio Harrington MD - 02/16/2022 EXAM DESCRIPTION: DEXA AXIAL SKELETON BONE DENSITY 1 OR MORE SITES REASON FOR STUDY: 81 y/o year old F with given history ofscreening. Postmenopausal Machine Precision Engraver/Model: Bactest Discovery SL (S/N [id number]) CLINICAL INFORMATION: Current height: 62 inches Maximum [...] Octavio Harrington M.D. MF: [place]ON Report ID: [id number] Reading Location: [id number] Julito Eisenberg MD IMG DXA PROCEDURES Final Result * COLONOSCOPY REPORT (10/28/2016) Anatomical Region Laterality Modality Other Provider Scanning GI PROCEDURE ORDERABLES Final Result from Last 3 Months or Most Recently Relevant to Health [place] [address] COMMERCIAL GENERIC MEDICARE MEDICARE COMMERCIAL GENERIC MEDICARE COMMERCIAL GENERIC MEDICARE COMMERCIAL GENERIC Advance Directives For more information, please contact: [phone] Documents on File Type Date Recorded Patient Flatbed Company Driver Expl anation ADVANCE DIRECTIVE 05/23/2024 1:37 PM Power of Vessel Traffic Officer-Medical ADVANCE DIRECTIVE 05/10/2024 1:14 AM POLS T [...] 10:29 PM 02/06/2019 9:05 PM Care Teams Button Riveter Relationship Specialty Start Date End Date Miscellaneous, Not In File PCP - General 05/09/24 Jeet Mirza MD [address] [place] [address] Primary Eye Care Provider Ophthalmology 10/23/20 Mauri Cannon MD [address] [place] [address] Business Proposal Rep Cardiology 10/23/20 Kevin Will MD PhD [address] [phone] Consulting Physician Ophthalmology 01/29/21 Benji Stark MD [address] [phone] Surgeon Ophthalmology 01/29/21
--- OUTSIDE RECORDS SUMMARY | 2024-07-11 21:21 | XMS_ITS | Patient Health Summary ---
Author Organization [facility] Address [address] [place] [address] Care Team Providers Care Respiratory Technician Name Role Phone Joni Pineda MD Primary Care Provider Unavail Vincent Engle MD Unavailable [phone] Note from [facility],non-owned Affiliates and Associated Physician Practices is amultiple site organization consisting of ambulatory clinics and hospital sitesin [place], [place], [place] and [place]. This disclosure is being madepursuant to the Care Everywhere program and may not contain all information available regarding this patient. Last updated 18.[facility] Allergies No known active allergies Medications * Be aware that medications may not be up to date on this document. Alwaysverify current medications with the patient. * levothyroxine (SYNTHROID) 75 MCG tablet Take 75 mcg by mouth daily before breakfast * aspirin (ASPIRIN) 81 MG tablet Take 81 mg by mouth once daily * Multiple Vitamins-Minerals (OCUVITE PO) Take by mouth once daily * Calcium Carbonate-Vitamin D3 600-400 MG-UNIT Take by mouth once daily * amLODIPine (NORVASC) 5 MG tablet Take 5 mg by mouth once daily * metoprolol succinate XL 24hr (TOPROL XL) 50 MG tablet(Started 06/10/2019) TAKE 1 TABLET BY MOUTH DAILY 4 refills by 06/09/2020 * DULoxetine (CYMBALTA) 60 MG capsule Take 60 mg by mouth once daily * gabapentin (NEURONTIN) 100 MG capsule Take 500 mg by mouth 2 times daily 3 tabs AM and 2 tabs PM * diclofenac sodium EC (VOLTAREN) 75 MG tablet Take 75 mg by mouth once daily * omeprazole (PRILOSEC) 20 MG capsule Take 20 mg by mouth daily before breakfast * Acetaminophen (TYLENOL 8 HOUR PO) Take 3 tablets by mouth 2 times daily 1 tab AM and 2 tab PM * atorvastatin (LIPITOR) 10 MG tablet Take 10 mg by mouth at bedtime * cyanocobalamin (VITAMIN B-12) 1000 MCG tablet Take 1,000 mcg by mouth once daily * vitamin C (ASCORBIC ACID) 1000 MG tablet Take 1,000 mg by mouth once daily Active Problems Problem Noted Date Diagnosed Date Aortic arch atherosclerosis, mild-moderate (nonm obile) 10/10/2019 Primary osteoarthritis of both knees 08/21/2017 Mixed hyperlipidemia 07/27/2017 Supraventricular tachycardia 07/27/2017 Osteoarthritis of left subtalar joint 03/01/2017 Thyroid nodule 01/31/2017 Lipid screening 06/17/2015 Prediabetes 06/17/2015 Retinal artery branch occlusion of right eye SHARP (dyspnea on exertion) 05/29/2015 Nonrheumatic aortic valve stenosis 05/28/2015 NSVT (nonsustained ventricular tachycardia) Essential hypertension Syncope, near Resolved Problems Problem Noted Date Diagnosed Date Resolved Date Encounter for loop recorder check 05/20/2015 11/20/2019 Immunizations * INFLUENZA VACCINE(Given 02/17/2015) * PNEUMOCOCCAL PCV7 CONJ, PEDS(Given 02/17/2014) * ZOSTER VACCINE, LIVE(Given 02/17/2014) Social History Tobacco Use Types Packs/Day Years Used Date Smoking Tobacco: Never Smokeless Tobacco: Never Alcohol Use Standard Drinks/Week Comments Yes 0 (1 standard drink = 0.6 oz pur e alcohol) Sex and Gender Information Value Date Recorded Sex Assigned at Not on file Gender Identity Not on file Sexual Orientation Not on file Last Filed Vital Signs Vital Sign Reading Time Taken Comments Blood Pressure 132/76 04/16/2020 11:51 AM GENERAL OFFICE ASSOCIATE Pulse 83 04/16/2020 11:19 AM GENERAL OFFICE ASSOCIATE Temperature 37.1 C (98.7 F) 11/13/2019 12:28 PM CDT Respiratory Rate 18 04/16/2020 11:51 AM GENERAL OFFICE ASSOCIATE Oxygen Saturation 98% 04/16/2020 11:19 AM GENERAL OFFICE ASSOCIATE Inhaled Oxygen Concentration - - Weight 108.4 kg (239 lb) 04/16/2020 11:19 AM GENERAL OFFICE ASSOCIATE Height 157.5 cm (5' 2 ) 04/16/2020 11:19 AM GENERAL OFFICE ASSOCIATE Body Mass Index 43.71 04/16/2020 11:19 AM GENERAL OFFICE ASSOCIATE Procedures * EYE EXAM(Performed 03/05/2021) * PATH CONSULT ON REFERRED CASE(Performed 09/30/2020) Performed for Illness, unspecified * COMPREHENSIVE METABOLIC PANEL(Performed 04/06/2020) * LIPID PROFILE REFLEX LDL DIRECT(Performed 04/06/2020) * LOOP RECORDER REMOVAL(Performed 11/13/2019) Performed for Encounter for loop recorder at end of battery life * ECHOCARDIOGRAM 2D WITH DOPPLER(Performed 10/10/2019) Performed for Nonrheumatic aortic valve stenosis * ILR CLINIC CHECK(Performed 10/10/2019) Performed for Syncope, near, Encounter for loop recorder check * PATHOLOGY TISSUE(Performed 11/20/2018) Performed for Gross hematuria * ILR CLINIC CHECK(Performed 09/25/2018) Performed for Syncope, near, Encounter for loop recorder check * ILR CLINIC CHECK(Performed 06/19/2018) Performed for Syncope, near, Encounter for loop recorder check * ILR CLINIC CHECK(Performed 03/20/2018) Performed for Syncope, near, Encounter for loop recorder check * ILR CLINIC CHECK(Performed 12/18/2017) Performed for Syncope and collapse, Encounter for loop recorder check * ILR CLINIC CHECK(Performed 09/18/2017) Performed for Syncope, near, Encounter for loop recorder check * XR ANKLE RIGHT 3VW OR MORE(Performed 08/09/2017) Performed for Primary osteoarthritis of right ankle * XR ANKLE LEFT 3VW OR MORE(Performed 08/09/2017) Performed for Left ankle pain, unspecified chronicity * LAB MISC TEST(Performed 07/11/2017) * ILR CLINIC CHECK(Performed 06/02/2017) Performed for Syncope, near, Encounter for loop recorder check * ILR CLINIC CHECK(Performed 03/07/2017) Performed for Syncope, near, Encounter for loop recorder check * XR ANKLE RIGHT 3VW OR MORE(Performed 03/01/2017) Performed for Chronic pain of left ankle * XR KNEE BILAT 3VW(Performed 02/09/2017) Performed for Primary osteoarthritis of both knees * ILR CLINIC CHECK(Performed 12/07/2016) Performed for Syncope, near, Implantable Loop Recorder * ECHOCARDIOGRAM 2D WITH DOPPLER(Performed 08/23/2016) Performed for Nonrheumatic aortic valve stenosis * ILR CLINIC CHECK(Performed 08/23/2016) Performed for Syncope, near, Implantable Loop Recorder * EKG 12-LEAD(Performed 08/23/2016) Performed for NSVT (nonsustained ventricular tachycardia) ([facility]), Implantable Loop Recorder * LAB MISC TEST(Performed 07/06/2016) * ILR CLINIC CHECK(Performed 06/07/2016) Performed for Syncope, near, Implantable Loop Recorder * ILR CLINIC CHECK(Performed 01/26/2016) Performed for Syncope, unspecified syncope type, Implantable Loop Recorder * ILR CLINIC CHECK(Performed 09/08/2015) Performed for NSVT (nonsustained ventricular tachycardia) ([facility]), Implantable Loop Recorder * ILR CLINIC CHECK(Performed 07/21/2015) Performed for NSVT (nonsustained ventricular tachycardia) ([facility]), Implantable Loop Recorder * ECHOCARDIOGRAM STRESS(Performed 07/21/2015) Performed for Nonrheumatic aortic valve stenosis, Essential hypertension, SHARP (dyspnea on exertion), Syncope, near * LAB MISC TEST(Performed 06/16/2015) * CULTURE URINE(Performed 06/16/2015) * LOOP RECORDER INSERTION(Performed 05/20/2015) Performed for Syncope, near, SHARP (dyspnea on exertion), Undiagnosed cardiac murmurs * EKG 12-LEAD(Performed 04/20/2015) Performed for NSVT (nonsustained ventricular tachycardia) ([facility]), Syncope, near * ECHOCARDIOGRAM TRANSESOPHAGEAL(Performed 04/02/2015) * EKG 12-LEAD(Performed 03/24/2015) * ECHOCARDIOGRAM STRESS(Performed 10/22/2013) * EKG 12-LEAD(Performed 11/26/2008) * NM MYOCARD PERF REST STRESS(Performed 09/22/1999) * FROZEN SECTION(Performed 09/10/1999) Results * EYE EXAM (03/05/2021) Anatomical Region Laterality Modality Other Narrative 03/05/2021 Ordered by an unspecified provider. Scanned Document SCANNING ONLY * PATH CONSULT ON REFERRED CASE (09/30/2020 11:49 AM CDT) Final Diagnosis URINE, VOIDED, THIN PREP, CYTOLOGY (OSC:[id number]; 09/30/2020): - Negative for high grade urothelial carcinoma 10/05/2020 9:06 AM CDT [facility] Microscopic Description and Comment Microscopic examination substantiates the final diagnosis. 10/05/2020 9:06 AM CDT [facility] Clinical History Hematuria, cystoscopy negative 10/05/2020 9:06 AM CDT [facility] PATHOLOGY LAB Materials Received Prepared slide received from Urology [facility] [id number]. All material will be returned. 10/05/2020 9:06 AM CDT [facility] PATH[facility] LAB Disclaimer The performance characteristics of all immunohistochemical and indirect immunofluorescence stains (if any) cited in this report were determined by the Histopathology Laboratory of [facility]. Some of these tests were developed by our own laboratory and have not been cleared or approved by the US Food and Drug Administration. The FDA does not require this test to go through premarket FDA review. These tests are used for clinical purposes. They should not be regarded as investigational or for research. This laboratory is certified under the Clinical Laboratory Improvement Amendments (CLIA) as qualified to perform high complexity clinical laboratory testing. This case has been personally reviewed and interpreted by the attending (teaching) pathologist. 10/05/2020 9:06 AM CDT [facility] PATHOLOGY LAB Case Report Surgical Pathology Report Case: [id number] Authorizing Provider: Izabela Womack MD Collected: 09/30/2020 11:49 AM Ordering Location: [facility] Care Pathology Lab Received: 10/02/2020 11:49 AM Pathologist: Deshawn Sandoval MD Specimen: Slide Consultation 10/05/2020 9:06 AM CDT U PATH[facility]Y LAB Embedded Images 10/05/2020 9:06 AM CDT [facility] PATHOLOGY LAB Pathology/Cytolo gy SURGICAL PATHOLOGY CONSULTATION AND REPORT ON REFERRED SLIDES PREPARED ELSEWHERE / Unknown 09/30/2020 11:49 AM CDT 10/02/2020 11:49 AM CDT Izabela Womack MD LAB - PATHOLOGY/CYTO LOGY ORDERABLES [facility] PATHOLOGY LAB [address] [facility] [phone] * (ABNORMAL) LIPID PROFILE REFLEX LDL DIRECT (04/06/2020 10:38 AM GENERAL OFFICE ASSOCIATE) Cholesterol 143 <200 mg/dL [facility] HDL Cholesterol 42(L) > OR = 50 mg/dL [facility] Triglycerides 138 <150 mg/dL [facility] LDL Calculated 77 mg/dL (calc) [facility] Comment: Reference range: <100 Desirable range <100 mg/dL for primary prevention; <70 mg/dL for patients with CHD or diabetic patients with > or = 2 CHD risk factors. LDL-C is now calculated using the Serg-De Los Santos calculation, which is a validated novel method providing better accuracy than the Friedewald equation in the estimation of LDL-C. Serg PEREZ et al. UMA. 2013;310(19): 2538-1541 (http://education.[employer]/faq/EDO596) CHOL/HDLC RATIO 3.4 <5.0 (calc) [facility] Non HDL Cholesterol 101 <130 mg/dL (calc) [facility] Comment: For patients with diabetes plus 1 major ASCVD risk factor, treating to a non-HDL-C goal of <100 mg/dL (LDL-C of <70 mg/dL) is considered a therapeutic option. Test Performed at: [facility] [address] [place] [phone] VINCENT TABARES DO,MPH 04/06/2020 10:3 8 AM GENERAL OFFICE ASSOCIATE 04/06/2020 10:39 AM GENERAL OFFICE ASSOCIATE Mauri Cannon MD LAB - CHEMISTRY SHARI VOGT [facility] [address] [place] [address] * (ABNORMAL) COMPREHENSIVE METABOLIC PANEL (04/06/2020 10:38 AM GENERAL OFFICE ASSOCIATE) Glucose 101(H) 65 - 99 mg/dL [facility] Comment: Fasting reference interval For someone without known diabetes, a glucose value between 100 and 125 mg/dL is consistent with prediabetes and should be confirmed with a follow-up test. BUN 20 7 - 25 mg/dL [facility] Creatinine 0.81 0.60 - 0.93 mg/dL [facility] Comment: For patients >49 years of age, the reference limit for Creatinine is approximately 13% higher for people identified as -[place]. eGFR by MDRD 70 > OR = 60 mL/min/1 .73m2 [facility] eGFR by MDRD 81 > OR = 60 mL/min/1 .73m2 [facility] BUN/Creatinine Ratio NOT APPLICABLE 6 - 22 (calc) [facility] Sodium 143 135 - 146 mmol/L [facility] Potassium 4.5 3.5 - 5.3 mmol/L [facility] Chloride 106 98 - 110 mmol/L [facility] CO2 29 20 - 32 mmol/L [facility] Calcium 9.2 8.6 - 10.4 mg/dL [facility] Protein Total 6.0(L) 6.1 - 8.1 g/dL [facility] Albumin 3.8 3.6 - 5.1 g/dL [facility] Globulin Total 2.2 1.9 - 3.7 g/dL (calc) [facility] Albumin/Globulin Ratio 1.7 1.0 - 2.5 (calc) [facility] Bilirubin Total 0.7 0.2 - 1.2 mg/dL [facility] Alkaline Phosphatase 84 37 - 153 U/L [facility] AST 10 10 - 35 U/L [facility] ALT 8 6 - 29 U/L [facility] Comment: REPORT COMMENT: FASTING:YES Test Performed at: [facility] [id number] [place] [phone] VINCENT TABARES DO,MPH 04/06/2020 10:3 8 AM GENERAL OFFICE ASSOCIATE 04/06/2020 10:39 AM GENERAL OFFICE ASSOCIATE Mauri Cannon MD LAB - CHEMISTRY SHARI VOGT [facility] [address] [place] [address] * LOOP RECORDER REMOVAL (11/13/2019 1:27 PM CDT) Narrative Annalisa Noyola - 11/13/2019 1:27 PM CDT Meghana Cornoy RN 11/13/2019 1:27 PM See Scan Procedure Note Meghana Conroy RN - 11/13/2019 1:27 PM CDT See Scan Earnest Fan MD CARDIAC SERVICES ORD ERABLES * ECHOCARDIOGRAM 2D WITH DOPPLER (10/10/2019 3:26 PM CDT) Only the most recent of2 resultswithin the time period is included. Narrative Annalisa Noyola - 10/10/2019 3:26 PM CDT Pina Hernandez RDMS 10/10/2019 3:27 PM See scan Procedure Note Pina Hernandez RDMS - 10/10/2019 3:26 PM CDT See scan Mauri Cannon MD ECHO ORDERABLES * ILR CLINIC CHECK (10/10/2019 2:06 PM CDT) Only the most recent of14 resultswithin the time period is included. Narrative Neisha Moreno - 10/10/2019 2:06 PM CDT Neisha Moreno 10/10/2019 2:15 PM See scan for Parameters, Rate histograms, and EGMs. Earnest Fan MD CARDIAC SERVICES ORD ERABLES * PATHOLOGY TISSUE (11/20/2018 1:37 PM CDT) Case Report Surgical Pathology Report Case: [id number] Authorizing Provider: Izabela Womack MD Collected: 11/20/2018 01:37 PM Pathologist: Kenyon Adams MD Received: 11/22/2018 01:37 PM Specimen: Urine 11/23/2018 10:14 AM CDT [facility] PATH[facility] Final Diagnosis Urine, voided, Thin Prep, cytology: - Negative for a high-grade urothelial neoplasm Benign urothelial cells admixed with benign squamous cells 11/23/2018 10:14 AM CDT [facility] Microscopic Description and Comment Performed. 11/23/2018 10:14 AM CDT [facility] PATHOLOG[facility] LAB Clinical History Hematuria; cytoscopy negative. 11/23/2018 10:14 AM CDT [facility] PATHOLOG[facility] LAB Gross Description Prepared slide (1) received from [facility] labeled [id number], Sherri Anne . All material will be returned. 11/23/2018 10:14 AM CDT [facility] PATHOLOGY LAB Disclaimer The performance characteristics of all immunohistochemical and indirect immunofluorescence stains (if any) cited in this report were determined by the Histopathology Laboratory of [facility]. Some of these tests were developed by our own laboratory and have not been cleared or approved by the US Food and Drug Administration. The FDA does not require this test to go through premarket FDA review. These tests are used for clinical purposes. They should not be regarded as investigational or for research. This laboratory is certified under the Clinical Laboratory Improvement Amendments (CLIA) as qualified to perform high complexity clinical laboratory testing. This case has been personally reviewed and interpreted by the attending (teaching) pathologist. 11/23/2018 10:14 AM CDT [facility] PATHOLOGY LAB Embedded Images 11/23/2018 10:14 AM CDT [facility] PATHOLOGY LAB Pathology/Cytolo gy URINE / Unknown 11/20/2018 1:37 PM CDT 11/22/2018 1:37 PM CDT Izabela Womack MD LAB - PATHOLOGY/CYTO LOGY ORDERABLES [facility] PATHOLOGY LAB [address] [phone] * XR ANKLE RIGHT 3VW OR MORE (08/09/2017 11:29 AM CDT) Only the most recent of2 resultswithin the time period is included. Anatomical Region Laterality Modality Lower Extremity Radiographic Samara ging Narrative 08/29/2017 9:31 AM CDT Cheyenne Marcos 08/29/2017 9:31 AM See progress notes for results Benji Walter DO DIAGNOSTIC IMAGI NG ORDERABLES * XR ANKLE LEFT 3VW OR MORE (08/09/2017 11:27 AM CDT) Anatomical Region Laterality Modality Lower Extremity Radiographic Samara ging Narrative 08/29/2017 9:31 AM CDT Cheyenne Marcos 08/29/2017 9:31 AM See progress notes for results Benji Walter DO DIAGNOSTIC IMAGI NG ORDERABLES * LAB MISC TEST (07/11/2017) Only the most recent of3 resultswithin the time period is included. Blood BLOOD SPECIMEN / Unknown Provider Unknown LAB SEND OUT * XR KNEE BILAT 3 VIEWS (02/09/2017 3:31 PM CDT) Anatomical Region Laterality Modality Lower Extremity Computed Radiogr aphy Narrative 02/09/2017 4:20 PM CDT Nata Ray 02/09/2017 4:20 PM Please see progress notes for result. Corrina Haas PA-C DIAGNOSTIC IM AGING ORDERABLES * EKG 12-LEAD (08/23/2016 1:20 PM CDT) Only the most recent of4 resultswithin the time period is included. Narrative Liliana Márquez - 08/23/2016 1:20 PM CDT Liliana Márquez 08/23/2016 1:20 PM See scan Earnest Fan MD ECG ORDERABLES * ECHOCARDIOGRAM STRESS (07/21/2015 12:12 PM GENERAL OFFICE ASSOCIATE) Only the most recent of2 resultswithin the time period is included. Narrative Janette Cox RDMS - 07/21/2015 12:12 PM GENERAL OFFICE ASSOCIATE Janette Cox RDMS 07/21/2015 12:12 PM See scan Mauri Cannon MD ECHO ORDERABLES * CULTURE URINE (06/16/2015) Urine specimen (specimen) Joni Pineda MD LAB - MICROBIOLOGY O RDERABLES [facility] INSURANCE BILL * LOOP RECORDER INSERTION (05/20/2015 2:47 PM GENERAL OFFICE ASSOCIATE) Narrative Flavia Greene, RN - 05/20/2015 2:47 PM GENERAL OFFICE ASSOCIATE Flavia Greene, RN 05/20/2015 2:47 PM Procedure complete, see scan. Earnest Fan MD CARDIAC SERVICES ORD ERABLES * ECHO AMADOR (04/02/2015) Joni Pineda MD ECHO ORDERABLES * NM MYOCARD PERFUSION SPECT STRESS AND REST (09/22/1999) Anatomical Region Laterality Modality Chest Other Joni Pineda MD NM ORDERABLES * FROZEN SECTION (09/10/1999 8:38 AM CDT) Result CASE NUMBER [id number] Comment: ORDERING PHYSICIAN ROGER CHEN SPECIMEN TYPE Ovary with tube-right Date 09/10/1999 Physician Umer Gross Description The specimen is received fresh in a plastic bag, labeled with the patient's name and right tube and ovarian . It consists of one cystically dilated ovary and attached fallopian tube that weighs 50 grams and measures 6 cm x 4 cm x 3.5 cm and the segment with the attached fallopian tube measures 4 cm x 0.8 cm x 0.5 cm. Sliver Handler sections from the cyst wall are submitted in cassette B and front office representative sections from the cyst wall and fallopian tube are submitted in cassette K. Additional specimens are received in 2 formalin-filled containers. The first container is labeled with the patient's name and uterus, cervix, left tube and ovary . It consists of one uterus and attached fallopian tube and ovary. The fallopian tube and ovary are removed and the uterus and cervix weigh 100 grams. The uterus measures from the top of the fundus to the endocervix 6 cm and from cornu to cornu measures 7 cm and posterior to anterior measures 3.7 cm. The cervix measures 3.5 cm x 3 cm x 3.4 cm. The ectocervix is kaur-white and rounded measuring 0.4 cm in diameter. The uterus is bisected and the myometrium measures 3.2 cm. Multiple small circular lesions are identified in the myometrium. One of these lesions has a hemorrhagic center. This lesion measures 0.5 cm in diameter. Sliver Handler sections are submitted as follows cassette C contains a section from the anterior cervix cassette D contains a section from the posterior cervix cassettes E thru H contain front office representative sections of the uterus wall cassette F contains a section of the circular lesion with a hemorrhagic center. The left ovary measures 1.5 cm x 1.2 cm x 0.7 cm and the attached segment of fallopian tube measures 5 cm x 0.8 cm x 0.5 cm. Sliver Handler section of the ovary and fallopian tube are submitted in cassette I. The next container is labeled with the patient's name and appendix . It consists of one segment of appendix and a small amount of attached adipose tissue which measures 8 cm x 0.5 cm x 0.4 cm. On cut section, the tip of the appendix is whitish and pinkish and serial sectioning of the remainder of the appendix reveals a similarly whitish-pink wall with a small amount of brownish material in the lumen. Sliver Handler sections are submitted in cassette J. SHILA/lmj Microscopic Exam Section labeled FSA, B and K are all taken from the right ovary and reveals benign serous cystadenoma. The cyst wall is fibrocollagenous in nature and lined by a single layer of low cuboidal epithelium. The ovarian cortical stroma is unremarkable. No evidence of any malignancy is seen. Section of the fallopian tube is unremarkable. Sections of the cervix reveal squamocolumnar lined tissue fragments with areas of squamous metaplasia. No dysplasia is seen. The endocervical ducts are cystically dilated. The stroma shows chronic inflammation. Sections of the endometrium reveal proliferative phase. No evidence of hyperplasia or malignancy is seen. Sections of the myometrium reveal extensive adenomyosis. Section of the left ovary and fallopian tube is unremarkable. No malignancy is seen. Sections of the appendix are unremarkable. Fibrofatty obliteration of the lumen is seen. Diagnosis FROZEN SECTION DIAGNOSIS I. Right tube and ovary, frozen section diagnosis A. Benign, serous cyst (SR/AB). FINAL DIAGNOSIS I. Right tube and ovary, frozen section A. Benign serous cystadenoma. B. No evidence of malignancy. C. Fallopian tube, no pathologic diagnosis. II. Uterus, cervix A. Chronic cystic cervicitis with squamous metaplasia. B. Proliferative phase endometrium. C. Adenomyosis, extensive. III. Left ovary and fallopian tube A. No pathologic diagnosis. IV. Appendix A. No pathologic diagnosis. Regional Transfer Liaison bk Pathologist Ruben Larkin M.D. [employer]. 09/13/1999 1622 <5> CPT code 8331/87238, 8307/14881, [id number] MISCELLANEOUS SAMPLES / Unknown 09/10/1999 8:38 AM CDT 09/10/1999 8:38 AM CDT Historical Provider LAB - PATHOLOGY/C YTOLOGY ORDERABLES Care Teams Respiratory Technician Relationship Specialty Start Date End Date Joni Pineda MD PCP - General Internal Medicine 04/13/15 [place] [address] [place] [id number] Orthopedic Surgery 02/09/17
--- OUTSIDE RECORDS SUMMARY | 2024-07-11 21:21 | XMS_ITS | Encounter Summary ---
Author Organization [facility] Address [address] [place] [address] Care Team Providers Care Net C Developer Name Role Phone Joni Pineda MD Primary Care Provider Unavail able Rod Ledezma MD Unavailable Encounter Details Date Type Department Care Team (Late st Contact Info) Description 10/02/2020 Lab Requisition [facility] Care Pathology Lab [address] [place] [address] Izabela Womack MD [address] [place] [address] Illness, unspecified Social History Tobacco Use Types Packs/Day Years Used Date Smoking Tobacco: Never Smokeless Tobacco: Never Alcohol Use Standard Drinks/Week Comments Yes 0 (1 standard drink = 0.6 oz pur e alcohol) Sex and Gender Information Value Date Recorded Sex Assigned at Not on file Gender Identity Not on file Sexual Orientation Not on file documented as of this encounter Plan of Treatment Not on file documented as of this encounter Procedures Procedure Name Priority Date/Time Associated Diagnosis Comments PATH CONSULT ON REFERRED CASE Routine 09/30/2020 11:49 AM CDT Illness, unspecified documented in this encounter Results * PATH CONSULT ON REFERRED CASE (09/30/2020 11:49 AM CDT) Final Diagnosis URINE, VOIDED, THIN PREP, CYTOLOGY (OSC:[id number]; 09/30/2020): - Negative for high grade urothelial carcinoma 10/05/2020 9:06 AM CDT [facility] PATHOLOGY LAB Microscopic Description and Comment Microscopic examination substantiates the final diagnosis. 10/05/2020 9:06 AM CDT [facility] Clinical History Hematuria, cystoscopy negative 10/05/2020 9:06 AM CDT [facility] PATH[facility] Materials Received Prepared slide received from Urology [facility] [id number]. All material will be returned. 10/05/2020 9:06 AM T [facility] PATH[facility] Disclaimer The performance characteristics of all immunohistochemical and indirect immunofluorescence stains (if any) cited in this report were determined by the Histopathology Laboratory of [facility]. Some of these tests were developed by [...] attending (teaching) pathologist. 10/05/2020 9:06 AM CDT [facility] Case Report Surgical Pathology Report Case: [id number] Authorizing Provider: Izabela Womack MD Collected: 09/30/2020 11:49 AM Ordering Location: [facility] Pathology Lab Received: 10/02/2020 11:49 AM Pathologist: Deshawn Sandoval MD Specimen: Slide Consultation 10/05/2020 9:06 AM CDT [facility] PATH[facility] Embedded Images 10/05/2020 9:06 AM CDT [facility] PATH[facility] Pathology/Cytolo gy SURGICAL PATHOLOGY CONSULTATION AND REPORT ON REFERRED SLIDES PREPARED ELSEWHERE / Unknown 09/30/2020 11:49 AM CDT 10/02/2020 11:49 AM CDT Izabela Womack MD LAB - PATHOLOGY/CYTO LOGY ORDERABLES [facility] [address] [facility] [place]. [address] [phone] documented in this encounter Visit Diagnoses Diagnosis Illness, unspecified documented in this encounter Care Teams Net C Developer Relationship Specialty Start Date End Date Joni Pineda MD PCP - General Internal Medicine 04/13/15 [place] [address] [place] [address] Orthopedic Surgery 02/09/17 documented as of this encounter
--- OUTSIDE RECORDS SUMMARY | 2024-07-11 21:21 | XMS_ITS | Encounter Summary ---
Author Organization [facility] Address [address] [place] [address] Phone Care Team Providers Care Civil Preparedness Training Officer Name Role Phone Joni Pineda MD Primary Care Provider Jeet Mirza MD Unavailable [phone] Mauri Canonn MD Unavailable [phone] Kevin Will MD PhD Unavailable + Benji Stark MD Unavailable Joni Pineda MD Primary Care Provider [phone] Julito Eisenberg MD Primary Care Provider [phone] Miscellaneous, Not In File Primary Care Provider Unavailable Encounter Details Date Type Department Care Team (Late st Contact Info) Description 07/11/2017 Orders Only [facility] ProviderShikha MD [address] [place] [address] Social History Tobacco Use Types Packs/Day Years Used Date Smoking Tobacco: Never Alcohol Use Standard Drinks/Week Comments Yes 0 (1 standard drink = 0.6 oz pur e alcohol) Comments Unknown Sex and Gender Information Value Date Recorded Sex Assigned at Not on file Legal Sex Female 11:51 PM DIRECTOR OF LABOR RELATIONS Gender Identity Not on file Sexual Orientation Not on file documented as of this encounter Plan of Treatment Not on file documented as of this encounter Procedures Procedure Name Priority Date/Time Associated Diagnosis Comments DISCHARGE LABORATORY CUMULATIVE REPORT 07/11/2017 12:00 AM DIRECTOR OF LABOR RELATIONS documented in this encounter Results * DISCHARGE LABORATORY CUMULATIVE REPORT (07/11/2017 12:00 AM DIRECTOR OF LABOR RELATIONS) Narrative 07/11/2017 12:00 AM DIRECTOR OF LABOR RELATIONS Ordered by an unspecified provider. us Historical Provider LAB BLOOD ORDERABLES Melodie l Result documented in this encounter Visit Diagnoses Not on filedocumented in this encounter Care Teams Civil Preparedness Training Officer Relationship Specialty Start Date End Date oJni Pineda MD PCP - General 08/12/16 10/31/21 Joni Pineda MD [address] [place] [address] [place] [address] PCP - General 11/02/21 12/02/21 Julito Eisenberg MD [address] [place] [address] PCP - General Family Medicine 12/03/21 05/08/24 Miscellaneous, Not In File PCP - General 05/09/24 Jeet Mirza MD [address] [place] [address] Primary Eye Care Provider Ophthalmology 10/23/20 Mauri Cannon MD [address] [place] [address] [employer] Cardiology 10/23/20 Kevin Will MD PhD [address] [facility] [address] [place] [address] Consulting Physician Ophthalmology 01/29/21 Benji Stark MD [address] [facility] [address] [place] [address] Surgeon Ophthalmology 01/29/21 documented as of this encounter
--- OUTSIDE RECORDS SUMMARY | 2024-07-11 21:21 | XMS_ITS | Referral Summary ---
Author Organization [facility] Address [address] [facility] [place] [address] Care Team Providers Care Third Officer Name Role Phone Joni Pineda MD Primary Care Provider Unavail Rod Engle MD Unavailable [phone] Source Comments [facility],non-owned Affiliates and Associated Physician Practices is amultiple site organization consisting of ambulatory clinics and hospital sitesin [place], [place], [place] and [place]. This disclosure is being madepursuant to the Care Everywhere program and may not contain all information available regarding this patient. Last updated 18.[facility] Allergies No known active allergies Medications * Be aware that medications may not be up to date on this document. Alwaysverify current medications with the patient. Medication Sig Dispensed Refills Start Date End Date Status levothyroxine (SYNTHROID) 75 MCG tabletIndications:Sy ncope, near,SHARP (dyspnea on exertion),Undiagnose d cardiac murmurs Take 75 mcg by mouth daily before breakfast Active aspirin (ASPIRIN) 81 MG tabletIndications:Sy ncope, near,SHARP (dyspnea on exertion),Undiagnose d cardiac murmurs Take 81 mg by mouth once daily Active Multiple Vitamins-Minerals (OCUVITE PO)Indications:Synco pe, near,SHARP (dyspnea on exertion),Undiagnose d cardiac murmurs Take by mouth once daily Active Calcium Carbonate-Vitamin D3 600-400 MG-UNIT Take by mouth once daily Active amLODIPine (NORVASC) 5 MG tablet Take 5 mg by mouth once daily Active metoprolol succinate XL 24hr (TOPROL XL) 50 MG tablet TAKE 1 TABLET BY MOUTH DAILY 90 tablet 4 06/10/2019 Active DULoxetine (CYMBALTA) 60 MG capsule Take 60 mg by mouth once daily Active gabapentin (NEURONTIN) 100 MG capsule Take 500 mg by mouth 2 times daily 3 tabs AM and 2 tabs PM Active diclofenac sodium EC (VOLTAREN) 75 MG tablet Take 75 mg by mouth once daily Active omeprazole (PRILOSEC) 20 MG capsule Take 20 mg by mouth daily before breakfast Active Acetaminophen (TYLENOL 8 HOUR PO) Take 3 tablets by mouth 2 times daily 1 tab AM and 2 tab PM Active atorvastatin (LIPITOR) 10 MG tablet Take 10 mg by mouth at bedtime Active cyanocobalamin (VITAMIN B-12) 1000 MCG tablet Take 1,000 mcg by mouth once daily Active vitamin C (ASCORBIC ACID) 1000 MG tablet Take 1,000 mg by mouth once daily Active Active Problems Problem Noted Date Diagnosed Date Aortic arch atherosclerosis, mild-moderate (nonm obile) 10/10/2019 Primary osteoarthritis of both knees 08/21/2017 Mixed hyperlipidemia 07/27/2017 Supraventricular tachycardia 07/27/2017 Osteoarthritis of left subtalar joint 03/01/2017 Thyroid nodule 01/31/2017 Lipid screening 06/17/2015 Overview (04/07/2020): 04/03 Cholesterol 143 HDL 42 LDL 77 triglyceride 138, virtually normal CMP except glucose 101 07/31 Cholesterol 133 HDL 48 LDL 69 triglyceride 80, normal CMP except glucose 109 07/02 Cholesterol 122 HDL 40 LDL 60 triglyceride 111, normal CMP except glucose 108 07/01 Cholesterol 125 HDL 41 LDL 68 triglyceride 82, normal CMP except bilirubin 1.6 & glucose 112 06/30 Cholesterol 108 HDL 33 LDL 59 triglyceride 80, normal CMP except glucose 113, on atorvastatin 20 mg daily Prediabetes 06/17/2015 Overview (06/17/2015): 06/30 glucose 113 (fasting) Retinal artery branch occlusion of right eye Overview (05/29/2015): 1991 sudden loss of right eye upper field vision -> carotid duplex: OK per patient SHARP (dyspnea on exertion) 05/29/2015 Nonrheumatic aortic valve stenosis 05/28/2015 Overview (10/10/2019): 03/29 echo: EF 70-75%, grade 1 diastolic [...] mild MAC, mild-moderate non-mobile plaque in arch NSVT (nonsustained ventricular tachycardia) Overview (07/21/2015): stress nuclear: 99% maximal heart rate, no ischemia, anterior attenuation, EF 51% 10/26 stress echo 3:49--94% maximal heart rate, no ischemia, hyperdynamic LVEF, PVCs 03/29 event recorder: VT vs AF/aberrancy by MD second hand report 04/28 EKG: SR at 72, normal ijntervals 07/28 stress echo 3:32--86% maximal heart rate, no ischemia, normal LVEF Essential hypertension Syncope, near Overview (05/29/2015): 03/29 near syncope Resolved Problems Problem Noted Date Diagnosed Date Resolved Date Encounter for loop recorder check 05/20/2015 11/20/2019 Overview (05/20/2015): [facility]100 SN: [id number] Implanted 05/20/[address] Earnest Fan Immunizations Name Administration Dates Next Due INFLUENZA VACCINE 02/17/2015 PNEUMOCOCCAL PCV7 CONJ, PEDS 02/17/2014 ZOSTER VACCINE, LIVE 02/17/2014 Social History Tobacco Use Types Packs/Day Years [...] Comments Blood Pressure 132/76 04/16/2020 11:51 AM DISTRIBUTION COORDINATOR Pulse 83 04/16/2020 11:19 AM DISTRIBUTION COORDINATOR Temperature 37.1 C (98.7 F) 11/13/2019 12:28 PM CDT Respiratory Rate 18 04/16/2020 11:51 AM DISTRIBUTION COORDINATOR Oxygen Saturation 98% 04/16/2020 11:19 AM DISTRIBUTION COORDINATOR Inhaled Oxygen Concentration - - Weight 108.4 kg (239 lb) 04/16/2020 11:19 AM DISTRIBUTION COORDINATOR Height 157.5 cm (5' 2 ) 04/16/2020 11:19 AM DISTRIBUTION COORDINATOR Body Mass Index 43.71 04/16/2020 11:19 AM DISTRIBUTION COORDINATOR Plan of Treatment Not on file Care Teams Third Officer Relationship Specialty Start Date End Date Joni Pineda MD PCP - General Internal Medicine 04/13/15 [place] [address] [address] Orthopedic Surgery 02/09/17
--- OUTSIDE RECORDS SUMMARY | 2024-07-11 21:21 | XMS_ITS | Clinical Summary ---
Author Organization [facility] Address [address] [facility] [place] [address] Care Team Providers Care Latex Foam Worker Name Role Phone Joni Pineda MD Primary Care Provider Unavail Rod Engle MD Unavailable [phone] Source Comments [facility],non-owned Affiliates and Associated Physician Practices is amultiple site organization consisting of ambulatory clinics and hospital sitesin [place], [place], [place] and [place]. This disclosure is being madepursuant to the Care Everywhere program and may not contain all information available regarding this patient. Last updated 18.[facility] Allergies No known active allergies Medications * [...] (05/20/2015): [facility]100 SN: [id number] Implanted 05/20/[address] Earnest Fan Immunizations Name Administration Dates Next Due INFLUENZA VACCINE 02/17/2015 PNEUMOCOCCAL PCV7 CONJ, PEDS 02/17/2014 ZOSTER VACCINE, LIVE 02/17/2014 Family History Medical History Relation Name Comments Hypertension Father Cancer - Breast Mother Diabetes Mother Relation Name Status Comments Brother Alive Aortic regurgit ation -> AVR Father (Age 102) no heart dz Mother (Age 79) no heart d z; pneumonia Social History Tobacco Use Types Packs/Day Years [...] Comments Blood Pressure 132/76 04/16/2020 11:51 AM PRESSER AUTOMATIC Pulse 83 04/16/2020 11:19 AM PRESSER AUTOMATIC Temperature 37.1 C (98.7 F) 11/13/2019 12:28 PM CDT Respiratory Rate 18 04/16/2020 11:51 AM PRESSER AUTOMATIC Oxygen Saturation 98% 04/16/2020 11:19 AM PRESSER AUTOMATIC Inhaled Oxygen Concentration - - Weight 108.4 kg (239 lb) 04/16/2020 11:19 AM PRESSER AUTOMATIC Height 157.5 cm (5' 2 ) 04/16/2020 11:19 AM PRESSER AUTOMATIC Body Mass Index 43.71 04/16/2020 11:19 AM PRESSER AUTOMATIC Plan of Treatment Health Maintenance Due Date Last Done Comments BONE DENSITY TESTING 1940 MEDICARE AWV 12 MONTHS 1942 DTAP/TDAP/TD VACCINES (1 - Tdap) 1961 PNEUMOCOCCAL VACCINE 50+ (1 of 1 - PCV) 1992 ZOSTER VACCINE (2 of 3) 04/14/2014 02/17/2014 Respiratory Syncytial Virus (RSV) Vaccine Pt: or over 60 yrs (1 - 1-dose 75+ series) 2017 COVID-19 VACCINE ( - 2023- season) 2024 INFLUENZA VACCINE (#1) 2024 9, 02/05/2018, 03/10/2017, Additional history exists DEPRESSION SCREENING 05/15/2024 HEPATITIS B VACCINE Aged Out No longe r eligible based on patient's age to complete this topic HIB VACCINE Aged Out No longer eligi ble based on patient's age to complete this topic HPV VACCINE Aged Out No longer eligi ble based on patient's age to complete this topic MENINGOCOCCAL (Group B) VACCINE Aged Out No longer eligible based on patient's age to complete this topic MENINGOCOCCAL VACCINE Aged Out No fede paty eligible based on patient's age to complete this topic Care Teams Latex Foam Worker Relationship Specialty Start Date End Date Joni Pineda MD PCP - General Internal Medicine 04/13/15 [place] [address] [address] [place] [address] Orthopedic Surgery 02/09/17
--- OUTSIDE RECORDS SUMMARY | 2024-07-11 21:21 | XMS_ITS | CONTINUITY OF CARE DOCUMENT ---
Author Name carlyn alcocer Address Unknown Organization [facility] Office Address [address] [place] [address] [address] [place] [address] Phone [phone] Care Team Providers Care Tire Mechanic Name Role Phone Daniel Vaughn DO Unavailable [phone] CHRISTINE GONZALEZ MD Unavailable [phone] CHRISTINE GONZALEZ MD Unavailable [phone] INSURANCE PROVIDERS Payer name Policy type / Coverage type [employer]en red alliance party ID SELF PAY [employer] Commercial insurance company [id number] [place] MEDICARE Medicare [id number]
--- OUTSIDE RECORDS SUMMARY | 2024-07-11 21:21 | XMS_ITS | Continuity of Care Document ---
Author Organization [facility] Address [address] [facility] [address] [place] [address] Phone Care Team Providers Care Chemical Plant Operator Name Role Phone Saima PT, CMPT, Shola Unavailable Jasmine vailable Procedures Procedure Date Progress Note Therapeutic Exercise Neuromuscular Re-Ed Therapeutic Exercise Other PT/OT Primary Functional Limitatio n-Current Other PT/OT Primary Functional Limitaion -Goal Therapeutic Exercise Therapeutic Exercise Manual Therapy Therapeutic Exercise Manual Therapy PT Evaluation Moderate Complexity Therapeutic Exercise Other PT/OT Primary Functional Limitatio n-Current Other PT/OT Primary Functional Limitaion -Goal Advance Directives Directive Yes / No Effective Date File Name No Information Encounters Encounter Description Practice Location Reason(s) For Visit Diagnoses Date Provider Providers Copied on Encounter [facility], [address] [address], [place], [place], [id number], [place] tel:[phone] Heriberto No Information 8 Hank Jolley. [address] [facility], [place], [address], [place]. tel: [phone] [facility], [address] [address], [place], [place], [id number], tel:[phone] [place] No Information 8 [place] Shola. [address] [place] [address], [address], [place], [place], [facility], . tel: [phone] Referring Provider: Ankur Armstrong [address] [facility], [place], [address]. tel:[phone] [place] [address] [address], [place], [place], [id number], tel:[phone] [place] No Information 8 [place] Shola. [address] [place] [address], [address], [place], [place], [facility], . tel: [phone] Referring Provider: Ankur Armstrong [address] [facility], [place], [address]. tel:[phone] [place] [address], [id number], tel:[phone] Heriberto No Information 7 [place] Shola. [address] [place] [address], [address], [place], [facility], [place]. tel: [phone] Referring Provider: Ankur Armstrong [address] [facility], [place], [address]. tel:[phone] [place] [address], [id number], [place] tel:[phone] Heriberto No Information 7 [place] Shola. [address] [place] [address], [address], [place], [facility], [place]. tel: [phone] Referring Provider: Ankur Armstrong [address], [place], [address]. tel:[phone] [place] [address], [place], [place], [id number], tel:[phone] Herib[place] No Information 7 [place] Shola. [address] [place] [address] [address], [place], [address], . tel:[phone] Referring Provider: Ankur Armstrong [address], [place], [address]. tel:[phone] [place], [facility] [address], [place], [place], [id number], [place] tel:[phone] [place] Other specified disorders of muscleOther specified disorders of urinary systemOveractive bladderNocturiaMuscl e weakness (generalized)Urgency of urinationUrge incontinence [address] Hank [address]. [address] [facility], [address], [place], [address], . tel:[phone] Referring Provider: Ankur Armstrong [address], [place], [address]. tel:[phone] Family History Family Member Type Diagnosis Age At Onset No Information Payers Payer name Insurance type Covered republican ID Authoriza tischuyler(s) [place] [id number] [employer] [id number] Social History Type Description Quantity Date Captured Comments Sex Female Smoking Status No Information Chief Complaint And Reason For Visit No Information Reason For Referral Reason For Referral No Information History Of Present Illness Encounter Date Complaint History Of Prese nt Illness No Information Functional Status Date Functional Assessmen t No Information Instructions Date Instruction Additional Infor mation No Information Assessments Type Assessment Date No Information Patient Care Teams Name Effective Dates (start - stop) Status Members No Information
--- OUTSIDE RECORDS SUMMARY | 2024-07-11 21:21 | XMS_ITS | Continuity of Care Document ---
Author Name Auto Generated, Auto Generated Organization [facility] Support Name Relationship Address Phone Tish Magallon Daughter Unknown Unavailable DayanaPraveen Son Unknown Unavailable Sherri Anne Financial Responsible Libertarian [address] [facility] [address] [place] [address] Sherri Anne Self [address] [place] [address] Jese Magallon Son-in-Law [id number] [place] [address] Unavailable Greg Montalvo Significant Other Unknown Unav ailable Summary Purpose Consult/Referral Allergies, Adverse Reactions, Alerts Type Description/Agent Code Date Allergy Active Date Allergy Inactivated Date of Last Reaction Adverse Reactions Severity Status Comments Source of Information [employer] No Known Allergies Active Patient History Medications No Known Medications Conditions/Problems Problem/Diagnosis Awareness of Diagnosis Code (ICD-10) Onset Date (Start Date) Resolution Date (End Date) Status Source Comments LOW BACK PAIN M54.5 02/07/20 19 Active MD Quincy Chopra UNSPECIFIED FRACTURE OF T11-T12 VERTEBRA, SUBSEQUENT ENCOUNTER FOR FRACTURE WITH ROUTINE HEALING S22.089D 02/07/20 19 Active MD Quincy Chopra SPINAL STENOSIS, LUMBAR REGION WITHOUT NEUROGENIC CLAUDICATION M48.061 02/07/20 19 Active MD Quincy Chopra 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 02/07/20 19 Active MD Quincy Chopra RADICULOPATHY, LUMBAR REGION M54.16 02/07/20 19 Active MD Quincy Chopra HYPOTHYROIDISM, UNSPECIFIED E03.9 02/07/20 19 Active MD Quincy Chopra HYPERLIPIDEMIA, UNSPECIFIED E78.5 02/07/20 19 Active MD Quincy Chopra GASTRO-ESOPHAGEAL REFLUX DISEASE WITHOUT ESOPHAGITIS K21.9 02/07/20 19 Active MD Quincy Chopra MAJOR DEPRESSIVE DISORDER, SINGLE EPISODE, UNSPECIFIED F32.9 02/07/20 19 Active MD Quincy Chopra AGE-RELATED OSTEOPOROSIS WITHOUT CURRENT PATHOLOGICAL FRACTURE M81.0 02/07/20 19 Active MD Quincy Chopra VITAMIN D DEFICIENCY, UNSPECIFIED E55.9 02/07/20 19 Active MD Quincy Chopra DRUG INDUCED CONSTIPATION K59.03 02/07/20 19 Active MD Quincy Chopra ADVERSE EFFECT OF OTHER OPIOIDS, SUBSEQUENT ENCOUNTER T40.2X5D 02/07/20 19 Active MD Quincy Chopra ESSENTIAL (PRIMARY) HYPERTENSION I10 02/07/20 19 Active MD Quincy Chopra ARTHRODESIS STATUS Z98.1 02/07/20 19 Active MD Quincy Chopra Procedures No Known Procedures
--- OUTSIDE RECORDS SUMMARY | 2024-07-11 21:21 | XMS_ITS | Encounter Summary ---
Author Organization [facility] Address [address] [place] [address] Care Team Providers Care Supervisor Display Fabrication Name Role Phone Joni Pineda MD Primary Care Provider Unavail able Rod Ledezma MD Unavailable [phone] Encounter Details Date Type Department Care Team (Late st Contact Info) Description 11/22/2018 Lab Requisition [facility] Care Pathology Lab [address] [place] [address] Izabela Womack MD [address] [place] [address] Gross hematuria Social History Tobacco Use Types Packs/Day Years [...] Procedure Name Priority Date/Time Associated Diagnosis Comments PATHOLOGY TISSUE Routine 11/20/2018 1:37 PM CDT Gross hematuria documented in this encounter Results * PATHOLOGY TISSUE (11/20/2018 1:37 PM CDT) Case Report Surgical Pathology Report Case: [id number] Authorizing Provider: Izabela Womack MD Collected: 11/20/2018 01:37 PM Pathologist: Kenyon Adams MD Received: 11/22/2018 01:37 PM Specimen: Urine 11/23/2018 10:14 AM [facility] Final Diagnosis Urine, voided, Thin Prep, cytology: - Negative for a high-grade urothelial neoplasm Benign urothelial cells admixed with benign squamous cells 11/23/2018 10:14 AM [facility] Microscopic Description and Comment Performed. 11/23/2018 10:14 AM [facility] Clinical History Hematuria; cytoscopy negative. 11/23/2018 10:14 AM [facility] Gross Description Prepared slide (1) received from [facility] labeled [id number], Sherri Anne . All material will be returned. 11/23/2018 10:14 AM [facility] Disclaimer The performance characteristics of all immunohistochemical and indirect immunofluorescence stains (if any) cited in this report were determined by the Histopathology Laboratory of [facility]. Some of these tests were [...] the attending (teaching) pathologist. 11/23/2018 10:14 AM [facility] Embedded Images 11/23/2018 10:14 AM [facility] Pathology/Cytolo gy URINE / Unknown 11/20/2018 1:37 PM CDT 11/22/2018 1:37 PM CDT Izabela Womack MD LAB - PATHOLOGY/CYTO LOGY ORDERABLES [facility] PATHOLOGY LAB [facility] [place], [place] [id number] [place] [address] documented in this encounter Visit Diagnoses Diagnosis Gross hematuria documented in this encounter Care Teams Supervisor Display Fabrication Relationship Specialty Start Date End Date Joni Pineda MD PCP - General Internal Medicine 04/13/15 [place] [address] [address] [facility] [address] [place] [address] Orthopedic Surgery 02/09/17 documented as of this encounter
--- OUTSIDE RECORDS SUMMARY | 2024-07-11 21:21 | XMS_ITS | Clinical Summary ---
Author Organization [facility] Address [address] [place] [address] Phone Care Team Providers Care Ambulance Driver Paramedic Name Role Phone Joni Pineda MD Primary Care Provider Unavailabl e Allergies No known active allergies Medications amLODIPine (NORVASC) 2.5 mg tablet Take 5 mg by mouth daily Take half tab . 10/24/2015 Active atorvastatin (LIPITOR) 20 mg tablet Take 20 mg by mouth daily at bedtime. 08/23/2015 Active levothyroxine 75 mcg tablet Take 0.075 mcg by mouth daily. 10/24/2015 Active metoprolol succinate (TOPROL XL) 50 mg Extended Release 24 hour tablet Take 50 mg by mouth daily. 09/08/2015 Active omeprazole (PRILOSEC) 20 mg Capsule, Delayed Release(E.C.) Take 20 mg by mouth daily. 09/08/2015 Active sulindac (CLINORIL) 200 mg Tablet Take 200 mg by mouth daily with breakfast. Active aspirin (ECOTRIN EC) 81 mg Tablet, Delayed Release (E.C.) Take 81 mg by mouth daily. Active calcium carbonate-vitam in D3 (CALCIUM 600 WITH VITAMIN D3) 600 mg(1,500mg) -500 unit Capsule Take by mouth. Active citalopram (CeleXA) 20 mg tablet Take 20 mg by mouth daily at bedtime. Active VIT C/VIT E ACET/LUTEIN/MIN (OCUVITE LUTEIN ORAL) Take by mouth. Active HYDROcodone-herman taminophen (NORCO) 5-325 mg tablet Take 1 Tablet by mouth every 4 hours as needed for Pain, Moderate. Max Daily Amount: 6 Tablets 20 Tablet 07/26/2017 Active Active Problems Patient Care Coordination No te Formatting of this note migh t be different from the original. 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 Breast mass, right 11/10/2015 Overview (11/10/2015): Plan core Abnormal mammogram 11/04/2015 Immunizations Immunization Administration Dates Next Due Influenza Seasonal Unspecified Formulation IM Family History Medical History Relation Name Comments Breast Cancer Mother Relation Name Status Comments Mother Social History Tobacco Use Types Packs/Day Years Used Date Smoking Tobacco: Never Smokeless Tobacco: Never Alcohol Use Standard Drinks/Week Comments Yes 0 (1 standard drink = 0.6 oz pur e alcohol) rarely-- maybe 3x a year Comments No Sex and Gender Information Value Date Recorded Sex Assigned at Not on file Legal Sex Female 2:44 PM CDT Gender Identity Not on file Sexual Orientation Not on file Last Filed Vital Signs Vital Sign Reading Time Taken Comments Blood Pressure 128/68 08/08/2017 11:15 AM CDT Pulse 76 07/26/2017 4:19 PM CDT Temperature 36.6 C (97.8 F) 07/26/2017 4:19 PM CDT Respiratory Rate 18 07/26/2017 4:19 PM CDT Oxygen Saturation 94% 07/26/2017 4:19 PM CDT Inhaled Oxygen Concentration - - Weight 113.9 kg (251 lb) 08/08/2017 11:15 AM CDT Height 158.8 cm (5' 2.5 ) 08/08/2017 11:15 AM CD T Body Mass Index 45.18 08/08/2017 11:15 AM CDT Plan of Treatment Health Maintenance Due Date Last Done Comments DTAP/TDAP/TD VACCINES (1 - Tdap) 1961 ZOSTER VACCINE (1 of 2) 1992 OSTEOPOROSIS SCREENING 2007 RSV VACCINE (60+ or ) (1 - 1-dose 75+ series) 2017 INFLUENZA VACCINE (#1) 2023 7, 01/31/2017, 02/26/2016, Additional history exists PNEUMOCOCCAL VACCINE 50+ YEARS Completed 0 10/14/2015, 02/17/2014, 04/12/2012 Medical Devices Implanted Type Area Nipple Maker Device Identifier Shelf Expiration Date Model / Serial / Lot Loop Recorder Insurance [facility] [place] [address] MEDICARE PART A AND B ASSISTANT FRONT END MANAGER LIFE Member Subscriber Plan / Payer ( fective 2020-Present) Name:Sherri Anne Relation to Subscriber:Self Name:Sherri Anne Thong Payer ID:Not on file Group ID:Not on file Type:[employer] Address: [place] [id number] [place] [id number] Advance Directives For more information, please contact: [phone] * Full Code (Latest Code Status on File) Date Activated Date Inactivated Comments 12/04/2015 7:04 AM 12/04/2015 2:54 PM Care Teams Ambulance Driver Paramedic Relationship Specialty Start Date End Date Joni Pineda MD PCP - General Internal Medicine 11/09/15
[2024-07-11 22:00] VITALS: BP 115/56; PULSE 72; RESP 20; O2SAT 94
--- NOTE | 2024-07-11 22:06 | ED.SOB ---
HPI - SOB/Dyspnea General Chief Complaint: Shortness of Breath/Dyspnea Stated Complaint: LOW O2 SATS, SOB Time Seen by Provider: 07/11/24 20:54 History of Present Illness HPI Narrative: 84-year-old female presenting from [facility] facility for concerns of difficulty in breathing, nauseousness and episode diarrhea. Patient has history of congestive heart failure, hypertension, pulmonary hypertension and states that she was nauseous and vomited several times today. She was noted to be hypoxic on EMS arrival in the low 80s requiring oxygen supplementation. She was recently swab for COVID and influenza which were negative. Patient states that she felt better throughout the day and denies any history of smoking or COPD. No coughing or persistent nausea here in the emergency department. No chest pain shortness a breath. No leg swelling but she does have congestive heart failure baseline. She was otherwise in her normal state of health. No recent injuries or illnesses. Related Data Home Medications ?Medication ?Instructions ?Recorded ?Confirmed ?Last Taken ?Type No Home Medications 11/29/23 11/29/23 Unknown History Allergies Allergy/AdvReac Type Severity Reaction Status Date / Time No Known Allergies Allergy Verified 07/12/24 00:07 Review of Systems Review of Systems: As reviewed above in HPI [facility] Social History Social History Smoking status: Never smoker Alcohol intake: former Substance use: never Substance use type: does not use Do You Feel Safe in your Home?: Yes Lack of Transportation: No Lack of Food: Never True Current Housing: I Have Housing Concerned About Future Housing: No Difficulty Paying Gas/Electric Bills: No Difficulty Paying for Meds: No Currently Unemployed: No Education: Grade School Difficulty w/ Childcare or Family Care: No Spiritual care concerns: No Exam Narrative: GENERAL: [Well-appearing, well-nourished, and in no acute distress.] HEAD: [Normocephalic, atraumatic.] EYES: [PERRLA and EOMI.] ENT: Nares clear, no rhinorrhea or epistaxis. Mucous membranes moist. NECK: Supple. CHEST: Coarse right-sided breath sounds, no wheezing or tachypnea. HEART: [Regular rate and rhythm]. No murmur heard. [Normal peripheral pulses.] ABDOMEN: [Soft, nondistended], [nontender], [No rigidity or guarding] EXTREMITIES: Normal range of motion. 1+ bilateral edema. No signs of cellulitis SKIN: Warm, dry, no rash. NEURO: [No focal deficits]. Alert and oriented [x3.] PSYCH: [Normal mood and affect.] Course Vital Signs Vital signs: Vital Signs Pulse Rate 71 07/11/24 19:46 Respiratory Rate 14 07/11/24 19:46 Blood Pressure 101/48 L 07/11/24 19:46 Pulse Oximetry 98 07/11/24 19:46 Oxygen Delivery Nasal Cannula 07/11/24 19:46 Oxygen Flow Rate 2 07/11/24 19:46 Pulse Rate 82 07/12/24 03:21 Respiratory Rate 19 07/12/24 03:21 Blood Pressure 101/82 07/12/24 03:21 Pulse Oximetry 96 07/12/24 03:21 Oxygen Delivery Nasal Cannula 07/11/24 23:46 Oxygen Flow Rate 2 07/11/24 23:46 MDM - SOB/Dyspnea MDM Narrative Medical decision making narrative: 84-year-old female with history of CHF, hypertension, pulmonary hypertension presenting to the emergency department with a chief complaint of not feeling well, shortness of breath, nauseousness and 1 episode diarrhea. She was hypoxic per EMS arrival 86% requiring oxygen supplementation. Here she is saturating 94% on 2 L nasal cannula. No tachypnea but she does have coarse breath sounds with some atrium entry in the right side. 1+ edema to the legs which he states is about her normal baseline. No chest pain shortness a breath. Blood pressure on the softer side 101/48, no tachycardia tachypnea. No fever. Considerations presently for pneumonia, upper respiratory infection, COVID, flu, viral syndrome, less likely ACS or thromboembolic event. Potential for CHF exacerbation although less likely given the asymmetric breath sounds. Workup was ordered including chest x-ray, EKG, CBC, CMP, troponin, COVID, flu swabs. She was placed on nasal cannula and pulse oximetry, property assessment monitor. Patient's workup reveals no leukocytosis or anemia worse than baseline. Normal platelet count. D-dimer was markedly elevated for which a CT angiography was ordered. Normal coag studies. VBG obtained shows normal pH. Electrolytes within normal limits, normal creatinine, normal glucose, negative lactic acid, initially elevated troponin just barely above the upper limit of normal that down trended to normal level on repeat. BNP elevated 2330 consistent with CHF exacerbation which is likely also causing her troponin elevation. EKG shows no signs of acute heart strain or occluded vessel. Urinalysis shows no signs of infection. Patient did test positive for influenza. Patient CT images showed no pulmonary embolism, no acute cardiopulmonary pathology, healing left-sided rib fracture, T7 fracture and proximal humerus fracture which are already documented patient's care home reports of these are not new or acute and she was already doing them prior to arrival. Sling was applied to her left upper extremity given that she is not wearing 1 presently. Chest x-ray shows cardiomegaly and bilateral interstitial thickening suggestive edema consistent with her examination findings of potential CHF exacerbation with the hypoxemia requiring oxygen. She was given Lasix with improvement and was able to be taken off nasal cannula during my 2nd assessment. At this time given her age and risk factors as well as the elevated troponin she would be admitted to the hospital for further evaluation and Cardiology was consulted. Spoke to the hospitalist who accepted the patient to admission to the IMU at this time. Medical Records Attestation: I reviewed the patient's medical records. Lab Data Attestation: I reviewed the patient's lab results. 07/12/24 04:29 07/12/24 04:29 Labs: Lab Results 07/11/24 07/12/24 Range/Units 22:02 00:29 WBC 7.3 (4.5-10.0) K/mm3 RBC 3.65 L (4.2-5.4) M/mm3 Hgb 11.8 L (12.0-15.0) g/dL Hct 37.5 (37.0-47.0) % MCV 102.7 H (80-100) fl MCH 32.3 (26-34) pg MCHC 31.5 L (32-36) g/dl RDW 13.8 (11.5-14.5) % Plt Count 198 (150-375) k/mm3 MPV 9.8 (7.4-10.4) fl Immature Gran % (Auto) 0.8 H (0-0.5) % Neut % (Auto) 83.1 H (45.5-73.1) % Lymph % (Auto) 9.1 L (18.3-44.2) % Moody % (Auto) 6.8 (2.6-8.5) % Eos % (Auto) 0.1 (0-4.4) % Baso % (Auto) 0.1 L (0.2-1.2) % Lymph # (Auto) 0.66 L (0.9-3.2) K/mm3 Moody # (Auto) 0.5 (0.1-0.6) K/mm3 Eos # (Auto) 0.0 (0-0.3) K/mm3 Baso # (Auto) 0.0 (0.0-0.1) K/mm3 Abs Immat Gran (auto) 0.06 H (0.00-0.031) K/mm3 Absolute Neuts (auto) 6.0 (1.3-6.7) K/mm3 Absolute Nucleated RBC 0.000 (0.0-0.012) K/mm3 Nucleated RBC % 0.0 (0.0-0.2) % PT 13.5 (11.1-14.7) Seconds INR 1.0 APTT 27.5 (22.3-36.8) Seconds D-Dimer 2.41 H (<0.48) ug/mL Sodium 140 (137-145) mmol/L Potassium 4.5 (3.4-5.0) mmol/L Chloride 105 (98-107) mmol/L Carbon Dioxide 29 (22-30) mmol/L Anion Gap 6 (4-12) mmol/L BUN 24 H (7-17) mg/dL Creatinine 1.07 H (0.7-1.0) mg/dL Estim Creat Clear Calc 43 ml/min Estimated GFR 49 L (59 - ) Glucose 96 (65-110) mg/dL Lactic Acid 0.9 (0.7-2.0) mmol/L Calcium 9.2 (8.4-10.2) mg/dL Magnesium 2.0 (1.6-2.3) mg/dL Total Bilirubin 1.1 (0.2-1.3) mg/dL AST 19 (14-36) U/L ALT 13 (6-35) U/L Alkaline Phosphatase 88 (38-126) U/L Troponin I 0.036 H* (0.000-0.034) ng/mL NT-Pro-B Natriuret Pep 2330 H (19.9-100) pg/mL Total Protein 7.0 (6.3-8.2) g/dL Albumin 3.5 (3.5-5.1) g/dL Urine Color Yellow (Yellow) Urine Appearance Cloudy H (Clear) Urine pH 6.5 (5.0-9.0) Ur Specific [place] 1.017 (1.001-1.035) Urine Protein Negative (Negative) mg/dL Urine Glucose (UA) Negative (Negative) mg/dL Urine Ketones Negative (Negative) mg/dL Ur Blood (Man) Negative (Negative) Urine Nitrate Negative (Negative) Urine Bilirubin Negative (Negative) Urine Urobilinogen 0.2 (<2.0) mg/dL Leukocyte Esterase Rfl Trace H (Negative) STEVIE/UL Urine RBC 0-2 (0-2) /hpf Urine WBC 0-5 (0-3) /hpf Ur Squamous Epith Cells None seen (Few) /hpf Urine Bacteria None seen /hpf Urine Casts 0-2 Imaging Data Attestation: I personally reviewed and interpreted this imaging study as follows: My impression: Impressions Chest X-Ray 07/11/24 22:14 IMPRESSION: Cardiomegaly with bilateral interstitial thickening suggestive of pneumonitis versus edema. Fracture in the left proximal humerus. Chest CTA 07/12/24 00:00 IMPRESSION: 1. No pulmonary embolism. 2. No acute cardiopulmonary pathology. 3. Cholelithiasis. 4. Healing left ninth rib fracture. 5. Highly suggestive acute fracture of the T7. 6. Fracture left proximal humerus. ECG Data EKG #1: Attestation: I personally reviewed and interpreted this ECG as follows: ECG completion date: 07/12/24 ECG completion time: 23:47 Prior ECG tracings: not available for review Interpretation: Normal sinus rhythm, no signs of ST segment elevations, depressions or inversions. No previous EKG and EMR for comparison. Regular rate, regular rhythm and axis. QTC 401, QRS 90, ID 166. Overall normal sinus rhythm. Critical Care Time Critical Care Time Critical Care Time: Yes Total Critical Care Time: 35 Discharge Plan Discharge Clinical Impression: CHF exacerbation, Influenza A, NSTEMI (non-ST elevated myocardial infarction) Patient Disposition: Still a Patient Condition: Stable
[2024-07-11 22:14] LABS: Basophils Percent Auto 0.1 % (0.2-1.2); Eosinophils Percent Auto 0.1 % (0-4.4); Hematocrit 37.5 % (37.0-47.0); Hemoglobin 11.8 g/dL (12.0-15.0); Immature Granulocyte Absolute 0.06 K/mm3 (0.00-0.031); Immature Granulocyte Percent A 0.8 % (0-0.5); Lymphocytes Absolute Auto 0.66 K/mm3 (0.9-3.2); Lymphocytes Percent Auto 9.1 % (18.3-44.2); Mean Corpuscular HGB Conc 31.5 g/dl (32-36); Mean Corpuscular Hemoglobin 32.3 pg (26-34); Mean Corpuscular Volume 102.7 fl (80-100); Mean Platelet Volume 9.8 fl (7.4-10.4); Monocytes Absolute Auto 0.5 K/mm3 (0.1-0.6); Monocytes Percent Auto 6.8 % (2.6-8.5); Neutrophils Percent Auto 83.1 % (45.5-73.1); Platelet Count Result 198 k/mm3 (150-375); Red Blood Count 3.65 M/mm3 (4.2-5.4); Red Cell Distribution Width 13.8 % (11.5-14.5); White Blood Count 7.3 K/mm3 (4.5-10.0)
[2024-07-11 22:25] LABS: Alanine Aminotransferase 13 U/L (6-35); Albumin Level 3.5 g/dL (3.5-5.1); Alkaline Phosphatase 88 U/L (38-126); Anion Gap 6 mmol/L (4-12); Aspartate Amino Transferase 19 U/L (14-36); Bilirubin,Total 1.1 mg/dL (0.2-1.3); Blood Urea Nitrogen 24 mg/dL (7-17); Calcium 9.2 mg/dL (8.4-10.2); Carbon Dioxide 29 mmol/L (22-30); Chloride 105 mmol/L (98-107); Estimated CRCL calculation 43 ml/min; Estimated Glomerular Filt Rate 49; Glucose 96 mg/dL (65-110); Potassium 4.5 mmol/L (3.4-5.0); Prothrombin Time 13.5 Seconds (11.1-14.7); Sodium 140 mmol/L (137-145)
[2024-07-11 22:26] LABS: Lactic Acid Reflex 0.9 mmol/L (0.7-2.0); Partial Thromboplastin Time 27.5 Seconds (22.3-36.8)
[2024-07-11 22:30] VITALS: BP 109/82; PULSE 72; RESP 19; O2SAT 96
[2024-07-11 22:36] LABS: D Dimer 2.41 ug/mL (<0.48)
[2024-07-11 22:39] LABS: NT Pro B Type Natriuretic Pept 2330 pg/mL (19.9-100)
--- NOTE | 2024-07-11 23:31 | PC.NURSE ---
Spoke with son Praveen Hernándeze [phone] updated on plan of care
[2024-07-11 23:44] VITALS: BP 110/55; PULSE 81; RESP 24; O2SAT 85
[2024-07-11 23:46] VITALS: O2SAT 95
--- NOTE | 2024-07-11 23:46 | PC.NURSE ---
Assumed care of patient after receiving report from OTTO Orozco @ 1449. Ekg completed @ 8680 and lasix given.
[2024-07-11] MEDS: FUROSEMIDE INJ 40 MG/4 ML VIAL IV PUSH (23:50)
[2024-07-12] VITALS (18 sets, daily range): BP systolic 101–155; BP diastolic 45–82; PULSE 63–94; RESP 16–20; TEMP 36.6–37.1; O2SAT 90–98; BMI 43.7
--- NOTE | 2024-07-12 | ECHO_ITS ---
Patient Info Name: Sherri Anne Age: 84 years : 1940 Gender: Female Ht: 62 in Wt: 238 lbs BSA: 2.24 m2 HR: 89 bpm BP: 148 / 72 mmHg Heart Rhythm: Sinus Rhythm Technical Quality: Good Exam Date: 07/12/2024 9:35 AM Exam Location: Echo Lab Exam Room: [facility] [place][note 3] Patient Status: Inpatient Admit Date: 07/12/2024 Staff Ordering Physician: Deshawn Galvin MD Director Of Family Service [facility]: Quita Buchanan RDCS Attending Provider: Deshawn Galvin MD Referring Physician: Glenis JOHNSTON; Exam Type: CA echo doppler color flow Study Info Indications - CHF Complete two-dimensional, color flow and Doppler transthoracic echocardiogram is performed. Summary 1. Complete two-dimensional, color flow and Doppler transthoracic echocardiogram is performed. 2. Technically difficult exam because of obesity and patient was uncomfortable, not ideally position. 3. Left ventricular hypertrophy with grossly well preserved systolic function. 4. Grade 1 diastolic noncompliance. 5. Trileaflet aortic valve with aortic stenosis likely moderate to severe Doppler valve area calculation 1.0 cm2. Left Ventricle Left ventricular chamber dimension is normal. Left ventricular systolic function is normal, estimated at 60-65%. There is mild concentric increased left ventricular wall thickness. The left ventricular diastolic function is grade I diastolic dysfunction. Right Ventricle Right ventricular chamber dimension is normal. Left Atria Left atrial chamber dimension is mildly enlarged. Right Atria Right atrial chamber dimension is normal. Aortic Valve The aortic valve is trileaflet. There is moderate aortic valve sclerosis. There is moderate to severe aortic valve stenosis with a peak velocity of 469 cm/s, mean gradient of 56 mmHg, and aortic valve area of 0.7 cm2. Pulmonic Valve The pulmonic valve is not well visualized. Mitral Valve The mitral valve has normal leaflets. The mitral valve annulus is mildly calcified. Tricuspid Valve The tricuspid valve leaflets are not well visualized. Pericardium/Pleural The pericardium appears normal. Aorta The aortic root size at the sinus of Valsalva is not well visualized. Left Ventricular Outflow Tract Name Value Normal LVOT 2D LVOT Diameter 2.0 cm LVOT Doppler LVOT Peak Gradient 6 mmHg LVOT Mean Gradient 3 mmHg LVOT VTI 28 cm LVOT VTI/AV VTI Ratio 0.2 LVOT Stroke Volume 86 ml LVOT CO 7.1 l/min LVOT CI 3.2 l/min/m2 Pulmonic Valve Name Value Normal PV Doppler PV Peak Gradient 8 mmHg Mitral Valve Name Value Normal MV Doppler MV Peak Gradient 9 mmHg MV Mean Gradient 4 mmHg MV Decel [place] 582 cm/s2 MV PHT 68 ms MV Area (PHT) 3.2 cm2 4.0-5.0 MV Area (Cont Eq VTI) 2.4 cm2 MV Diastolic Function MV E Peak Velocity 137 cm/s MV A Peak Velocity 114 cm/s MV E/A 1.2 MV Decel Time 235 ms MV Annular TDI MV E/e' (Septal) 19.6 <=8.0 MV E/e' (Lateral) 14.5 <=8.0 MV E/e' (Average) 17.0 Tricuspid Valve Name Value Normal TV Regurgitation Doppler TR Peak Velocity 315 cm/s TR Peak Gradient 40 mmHg Aortic Valve Name Value Normal AV Doppler AV Peak Velocity 469 cm/s AV Peak Gradient 88 mmHg AV Mean Gradient 56 mmHg AV VTI 118 cm AV Area (Cont Eq VTI) 0.7 cm2 >=3.0 AV Area (Cont Eq [place]) 0.9 cm2 AV Regurgitation 2D LVOT Area 3.1 cm2 Ventricles Name Value Normal LV Dimensions 2D/MM IVS Diastolic Thickness (2D) 0.9 cm 0.6-1.0 LVID Diastole (2D) 4.9 cm 3.8-5.2 LVIW Diastolic Thickness (2D) 1.0 cm 0.6-0.9 LVID Systole (2D) 3.3 cm 2.2-3.5 LVOT Diameter 2.0 cm LV Mass (2D Cubed) 157.69 g 67.00-162.00 LV Mass Index (2D Cubed) 71 g/m2 43-95 Relative Wall Thickness (2D) 0.41 LV Fractional Shortening/Ejection Fraction 2D/MM LV Fractional Shortening (2D) 31 % 27-45 LV EF (2D Teicholz) 59 % 54-74 LV Diastolic Volume (4C MOD) 101 ml LV EF (4C MOD) 65 % LV Diastolic Length (4C) 7.6 cm LV Systolic Length (4C) 6.7 cm LV Stroke Volume (4C MOD) 66 ml Atria Name Value Normal LA Dimensions LA Volume (4C A-L) 71 ml RA Dimensions RA Area (4C) 16.6 cm2 <=18.0 Report Signatures
[2024-07-12] MEDS: Please add drug allergy info to patient profile. 1 EACH XX (00:06)
[2024-07-12 00:40] LABS: Add Urine Microscopic? YES; Appearance Urine Cloudy (Clear); Bacteria Urine None Seen /hpf; Bilirubin Urine Negative (Negative); Blood Urine Negative (Negative); Color Urine Yellow (Yellow); Glucose Urine UA Negative (Negative); Ketones Urine Negative (Negative); Leukocyte Esterase Ur Trace LEU/UL (Negative); Nitrate Urine Negative (Negative); Non Pathogenic Casts 0-2; Protein Urine Negative (Negative); RBC Urine 0-2 /hpf (0-2); Specific Grav Ur 1.017 (1.001-1.035); Squamous Epithelial Cell Urine None Seen /hpf (Few); Urobilinogen Urine 0.2 mg/dL (<2.0); WBC Urine 0-5 /hpf (0-3); pH Urine 6.5 (5.0-9.0)
--- NOTE | 2024-07-12 02:42 | PC.NURSE ---
Called report to floor and was told not to bring pt up until covid/flu/rsv swab is resulted due to pt going to double room.
[2024-07-12 02:51] LABS: Influenza A QL RT-PCR Positive (Negative); Influenza B QL RT-PCR Negative (Negative); SARS-CoV-2 RNA PCR Negative (Negative)
--- NOTE | 2024-07-12 02:56 | PC.NURSE ---
Patients swab came back positive or fluA and she is no longer allowed to go to a double room.
--- NOTE | 2024-07-12 04:08 | P.HP_ITS ---
H&P: HPI History of Present Illness Date/Time: 07/12/24 04:08 Chief Complaint: 1. Shortness of breath 2. Leg swellings Narrative: Sherri Anne is an 84 F with a mhx significant for sedentary status, wheelchair bound, Hypothyroidism, obesity, pHTN, GERD. Cognitiive impairment, Hypertension. A resident of [facility], she was brought it due to concerns of hypoxia, malaise, fatigue; these were present at rest and aggravated by exertion; alleviated by rest; associated by anorexia, myalgia, loose non-bloody stools, increased somnolence, poor execution of her ADLs. This is associated with increased somnolence and a poor interactive reaction compared to baseline. She at baseline is wheelchair bound and sedentary due to recurrent falls and an unstable gait; she does not smoke/chew tobacco, drink alcohol or consume recreational/illicit drugs Work-up findings: WBC 7.3; Hb 11; PLT 198; INR 1 BUN 24; Cr 1.07; GFR 49; Troponin: 0.036 UA: +LE; -ve Nitrite; 0-5 WBC Influenza A+ CTA Chest: 1. No pulmonary embolism. 2. No acute cardiopulmonary pathology. 3. Cholelithiasis. 4. Healing left ninth rib fracture. 5. Highly suggestive acute fracture of the T7. 6. Fracture left proximal humerus. CXR: Cardiomegaly with bilateral interstitial thickening suggestive of pneu monitis versus edema. Fracture in the left proximal humerus. Sherri Anne will be admitted, evaluated and managed for NSTEMI, CHF exacerbation Review of Systems Review of Systems: All systems reviewed & are unremarkable except as noted in HPI and below [facility] Social History Social History Smoking status: Never smoker Meds Home Medications and Allergies Home Medications ?Medication ?Instructions ?Recorded ?Confirmed ?Type No Home Medications 11/29/23 11/29/23 History Allergies Allergy/AdvReac Type Severity Reaction Status Date / Time No Known Allergies Allergy Verified 07/12/24 00:07 Vital Signs Vital Signs - 24 hr 07/11/24 19:46 07/11/24 21:00 07/11/24 22:00 Pulse Rate 71 72 Respiratory Rate 14 Blood Pressure 101/48 L Pulse Oximetry 98 96 Oxygen Delivery Nasal Cannula Room Air Oxygen Flow Rate 2 07/11/24 22:00 07/11/24 22:30 07/11/24 23:44 Pulse Rate 72 72 81 Respiratory Rate 20 19 24 H Blood Pressure 115/56 L 109/82 110/55 L Pulse Oximetry 94 96 85 L Oxygen Delivery Oxygen Flow Rate 07/11/24 23:46 07/12/24 02:13 07/12/24 03:21 Pulse Rate 80 82 Respiratory Rate 18 19 Blood Pressure 120/67 101/82 Pulse Oximetry 95 98 96 Oxygen Delivery Nasal Cannula Oxygen Flow Rate 2 H&P: Results Labs Labs: Short CBC 07/11/24 Range/Units 22:02 WBC 7.3 (4.5-10.0) K/mm3 Hgb 11.8 L (12.0-15.0) g/dL Hct 37.5 (37.0-47.0) % Plt Count 198 (150-375) k/mm3 BMP 07/11/24 22:02 Sodium 140 Potassium 4.5 Chloride 105 Carbon Dioxide 29 BUN 24 H Creatinine 1.07 H Glucose 96 Calcium 9.2 Cardiac Enzymes 07/11/24 Range/Units 22:02 Troponin I 0.036 H* (0.000-0.034) ng/mL Liver Function 07/11/24 Range/Units 22:02 Total Bilirubin 1.1 (0.2-1.3) mg/dL AST 19 (14-36) U/L ALT 13 (6-35) U/L Alkaline Phosphatase 88 (38-126) U/L Albumin 3.5 (3.5-5.1) g/dL Urine 07/12/24 Range/Units 00:29 Urine Color Yellow (Yellow) Urine Appearance Cloudy H (Clear) Urine pH 6.5 (5.0-9.0) Ur Specific [place] 1.017 (1.001-1.035) Urine Protein Negative (Negative) mg/dL Urine Glucose (UA) Negative (Negative) mg/dL Assessment and Plan Assessment and plan (1) CHF exacerbation: Code(s): I50.9 - Heart failure, unspecified Status: Acute (2) Influenza A: Code(s): J10.1 - Influenza due to other identified influenza virus with other respiratory manifestations Status: Acute (3) NSTEMI (non-ST elevated myocardial infarction): Code(s): I21.4 - Non-ST elevation (NSTEMI) myocardial infarction Status: Acute Plan Acute and principal conditions 1. Acute hypoxic respiratory failure 2. Dyspnea 3. Influenza A infection. 4. Acute metabolic encephalopathy 5. NSTEMI. likely 2/2 demand-ischemia Rx: A. IV Lasix; Low Na diet; Strict I/O B. Supplemental oxygen C. CT brain, NH3, VBG D. Falls and safety precautions Chronic and stable conditions 1. Obesity. 2. CHFpEF 3. Healing left ninth rib fracture; Left humeral fracture; T7 fracture 4. GERD. 5. Dyslipidemia. 6. MELANIA. 7. pHTN 8. Wheelchair bound; Sedentary status. 9. Recurrent falls. Miscellaneous care 1. Code status. Full 2. Nutrition. Heart healthy; low Na 3. VTE prophylaxis. SCDs; [facility] Quality VTE Prophylaxis VTE prophylaxis: mechanical ordered and pharmacologic ordered Hospitalist MIPS Advance Care Plan I have confirmed that the patient's Advanced Care Plan is present, code status is documented, or surrogate decision maker is listed in patient medical record.: Yes Medication Reconciliation I have utilized all available resources to obtain, update and review the patients current medications (includes all prescriptions, OTC, herbals, cannabis, and nutritional supplements).: Yes The patient is not eligible for med reconciliation; the patient is in a emergent medical situation where delaying treatment would jeopardize the patients health.: Yes
--- NOTE | 2024-07-12 04:33 | ECG_ITS ---
Test Date: 2024-07-12 04:40:55 Measurements Intervals [place] Rate: 69 P: 50 NH: 167 QRS: 68 QRSD: 90 T: 66 QT: 355 QTc: 382 Interpretive Statements SINUS RHYTHM WITH MARKED SINUS ARRHYTHMIA BASELINE ARTIFACT- I, II, AVR ,AVL, AVF, V1 NORMAL ECG Compared to ECG 07/11/2024 23:47:29 No significant changes Electronically Signed On 07-12-2024 07:17:30 [employer] by Davis Rey D.O.
[2024-07-12 04:37] LABS: Basophils Percent Auto 0.1 % (0.2-1.2); Hematocrit 35.7 % (37.0-47.0); Hemoglobin 11.4 g/dL (12.0-15.0); Immature Granulocyte Absolute 0.04 K/mm3 (0.00-0.031); Immature Granulocyte Percent A 0.5 % (0-0.5); Lymphocytes Absolute Auto 0.48 K/mm3 (0.9-3.2); Lymphocytes Percent Auto 6.3 % (18.3-44.2); Mean Corpuscular HGB Conc 31.9 g/dl (32-36); Mean Corpuscular Hemoglobin 32.9 pg (26-34); Mean Corpuscular Volume 102.9 fl (80-100); Mean Platelet Volume 9.9 fl (7.4-10.4); Monocytes Absolute Auto 0.8 K/mm3 (0.1-0.6); Monocytes Percent Auto 10.4 % (2.6-8.5); Neutrophils Absolute Auto 6.4 K/mm3 (1.3-6.7); Neutrophils Percent Auto 82.7 % (45.5-73.1); Platelet Count Result 195 k/mm3 (150-375); Red Blood Count 3.47 M/mm3 (4.2-5.4); Red Cell Distribution Width 13.7 % (11.5-14.5); White Blood Count 7.7 K/mm3 (4.5-10.0)
[2024-07-12 04:42] LABS: Fractional Inspired Oxygen 28 %; HCO3 VBG 27.4 mEq/l (24.0-30.0); PCO2 VBG 51.3 mmHg (42.0-48.0); PO2 VBG 31.5 mmHg (35.0-45.0); pH VBG 7.346 (7.300-7.400)
[2024-07-12 04:43] LABS: Device NASAL CANNULA
[2024-07-12 04:46] LABS: Ammonia < 9 umol/L (9-30)
[2024-07-12 04:52] LABS: Hemoglobin A1C 5.4 % (<5.7)
[2024-07-12 04:57] LABS: Alanine Aminotransferase 13 U/L (6-35); Albumin Level 3.4 g/dL (3.5-5.1); Alkaline Phosphatase 91 U/L (38-126); Anion Gap 7 mmol/L (4-12); Aspartate Amino Transferase 19 U/L (14-36); Blood Urea Nitrogen 24 mg/dL (7-17); Calcium 8.9 mg/dL (8.4-10.2); Carbon Dioxide 31 mmol/L (22-30); Chloride 99 mmol/L (98-107); Estimated CRCL calculation 41 ml/min; Estimated Glomerular Filt Rate 47; Glucose 108 mg/dL (65-110); Potassium 4.3 mmol/L (3.4-5.0); Sodium 137 mmol/L (137-145)
[2024-07-12 05:10] LABS: Troponin I 0.021 ng/mL (0.000-0.034)
--- NOTE | 2024-07-12 05:22 | ADMGEN ---
This patient, Sherri Anne, was admitted to IMU Room 204-01. Patient/family oriented to hospital policies and general routines including ID bracelet, bed and alarms, visiting hours, pain management, procedures, bathroom and other care routines, personal items, smoking policy, room service/diet, and visiting hours. Information on how to activate the Rapid Response Team has been discussed. Patient/Family are encouraged to report perceived risks to care and to ask questions if they do not understand what they are told or what they should do.
--- NOTE | 2024-07-12 09:36 | P.CONCA_ITS ---
Assessment and Plan Assessment and plan (1) CHF exacerbation: Code(s): I50.9 - Heart failure, unspecified Status: Acute Assessment and Plan: I am unsure if her shortness of breath is related to CHF or if this is predominantly because of influenza. Her chest Xray is not overly suggestive of CHF. She does have pedal edema which is worse on the right side. She is receiving IV furosemide, but difficult to assess her fluid balance because her only output documented this far is an unmeasured void. Can continue IV furosemide for now. Will await echocardiogram results and further recommendations to follow. (2) Influenza A: Code(s): J10.1 - Influenza due to other identified influenza virus with other respiratory manifestations Status: Acute Assessment and Plan: On supplemental oxygen. Management per hospitalist. (3) NSTEMI (non-ST elevated myocardial infarction): Code(s): I21.4 - Non-ST elevation (NSTEMI) myocardial infarction Status: Acute Assessment and Plan: Troponin 0.036, 0.021, 0.020. This does not represent ACS. She has no chest pain and her overall clinical picture is not consistent with ACS. Echo is pending but aside from this would not anticipate any further cardiac testing unless her clinical situation changes. History of Present Illness History of Present Illness Consult date/time: 07/12/24 09:36 Requesting physician: Shashi Shipley MD Consult reason: congestive heart failure Reason For Visit: CHF exacerbation, elevated troponin, Narrative: Sherri Anne is am 84 year old female with no cardiac history. Cardiology is consulted for congestive heart failure. This is a patient who presented to the emergency department with a chief complaint of shortness of breath. She has been found to have influenza. She reports a history of syncope and underwent implantation of a loop recorder which did not reveal any arrhythmias. The loop recorder has since been removed. She denies a history of heart failure or coronary artery disease. She does have some baseline shortness of breath and reports chronic lower extremity swelling. She is feeling increasingly short of breath today but has no other active complaints. Review of Systems 2 Review of Systems: All systems reviewed & are unremarkable except as noted in HPI and below [facility] Family History Family History Father Acute myocardial infarction Social History Social History Smoking status: Never smoker Alcohol intake: former Substance use: never Substance use type: does not use Do You Feel Safe in your Home?: Yes Lack of Transportation: No Lack of Food: Never True Current Housing: I Have Housing Concerned About Future Housing: No Difficulty Paying Gas/Electric Bills: No Difficulty Paying for Meds: No Currently Unemployed: No Education: Grade School Difficulty w/ Childcare or Family Care: No Spiritual care concerns: No Meds Home Medications and Allergies Home Medications ?Medication ?Instructions ?Recorded ?Confirmed ?Type acetaminophen 325 mg capsule 650 mg PO Q4H PRN pain 07/12/24 07/12/24 History amlodipine 5 mg tablet 5 mg PO DAILY 07/12/24 07/12/24 History aspirin 81 mg tablet,delayed 81 mg PO DAILY 07/12/24 07/12/24 History release atorvastatin 10 mg tablet 10 mg PO QPM 07/12/24 07/12/24 History cholecalciferol (vitamin D3) 10 10 mcg PO DAILY 07/12/24 07/12/24 History mcg (400 unit) tablet (Vitamin D3) cyanocobalamin (vitamin B-12) 1,000 mcg PO EVERY OTHER DAY 07/12/24 07/12/24 History 1,000 mcg capsule diclofenac sodium 50 mg 50 mg PO TID 07/12/24 07/12/24 History tablet,delayed release docusate sodium 100 mg capsule 100 mg PO DAILY PRN constipation 07/12/24 07/12/24 History duloxetine 60 mg capsule,delayed 60 mg PO DAILY 07/12/24 07/12/24 History release ferrous sulfate 325 mg (65 mg 325 mg PO EVERY OTHER DAY 07/12/24 07/12/24 History iron) tablet (FeroSul) gabapentin 100 mg capsule 200 mg PO BID 07/12/24 07/12/24 History levothyroxine 75 mcg tablet 75 mcg PO DAILY 07/12/24 07/12/24 History metoprolol succinate 50 mg 50 mg PO DAILY 07/12/24 07/12/24 History tablet,extended release 24 hr omeprazole 40 mg capsule,delayed 40 mg PO DAILY 07/12/24 07/12/24 History release ondansetron 4 mg disintegrating 4 mg PO Q6H PRN nausea and vomiting 07/12/24 07/12/24 History tablet polyethylene glycol 3350 17 17 g PO DAILY PRN constipation 07/12/24 07/12/24 History gram/dose oral powder spironolactone 25 mg tablet 25 mg PO DAILY 07/12/24 07/12/24 History vibegron 75 mg tablet (Gemtesa) 75 mg PO DAILY 07/12/24 07/12/24 History vit A 300 mcg-C 200 mg-E 27 1 tablet PO BID 07/12/24 07/12/24 History mg-lutein 2 mg and minerals tablet (Ocuvite with Lutein) Allergies Allergy/AdvReac Type Severity Reaction Status Date / Time hydrocodone Allergy Hallucinati Verified 07/12/24 06:13 ng oxycodone Allergy Hallucinati Verified 07/12/24 06:13 ng Vital Signs Vital Signs - 24 hr 07/11/24 19:46 07/11/24 21:00 07/11/24 22:00 Temperature Pulse Rate 71 72 Respiratory Rate 14 Blood Pressure 101/48 L Pulse Oximetry 98 96 Oxygen Delivery Nasal Cannula Room Air Oxygen Flow Rate 2 07/11/24 22:00 07/11/24 22:30 07/11/24 23:44 Temperature Pulse Rate 72 72 81 Respiratory Rate 20 19 24 H Blood Pressure 115/56 L 109/82 110/55 L Pulse Oximetry 94 96 85 L Oxygen Delivery Oxygen Flow Rate 07/11/24 23:46 07/12/24 02:13 07/12/24 03:21 Temperature Pulse Rate 80 82 Respiratory Rate 18 19 Blood Pressure 120/67 101/82 Pulse Oximetry 95 98 96 Oxygen Delivery Nasal Cannula Oxygen Flow Rate 2 07/12/24 06:00 07/12/24 06:01 07/12/24 07:45 Temperature 37.1 C Pulse Rate 63 89 Respiratory Rate 16 Blood Pressure 148/72 H Pulse Oximetry 96 98 Oxygen Delivery Nasal Cannula Oxygen Flow Rate 2 Exam 2 Const: General: comfortable, no acute distress, alert and awake O rientation/consciousness: patient oriented x3 HENMT: Head: normal to inspection Eyes: General: appearance normal, both eyes and all related structures P upils: Equal, round and reactive pupils present Neck: Neck: normal visual inspection and supple Carotids: normal carotid upstroke Resp: Auscultation: not clear to auscultation bilaterally, rhonchi and wheezes Cardio: Rate: regular rate Rhythm: regular rhythm Heart sounds: S1 normal heart sound present, S2 normal heart sound present and Murmur heart sound present systolic GI: Auscultation: normal bowel sounds Urinary Catheter: Urinary Catheter: patent and draining Skin: General skin exam: normal color Other: Thickening and mild hyperpigmentation of bilateral lower extremities consistent with chronic venous insufficiency Neuro: General: patient oriented x3 Cranial nerves: Yes Equal, round and reactive pupils present Extrem: General: pedal edema Psych: Appearance: grossly normal Mental Status: mental status grossly normal Results Labs and Meds 07/12/24 04:29 07/12/24 04:29 Lab results: Cardiac Enzymes 07/11/24 07/12/24 Range/Units 22:02 04:29 AST 19 19 (14-36) U/L Troponin I 0.036 H* 0.021 D (0.000-0.034) ng/mL Coagulation 07/11/24 Range/Units 22:02 PT 13.5 (11.1-14.7) Seconds APTT 27.5 (22.3-36.8) Seconds CBC 07/11/24 07/12/24 Range/Units 22:02 04:29 WBC 7.3 7.7 (4.5-10.0) K/mm3 RBC 3.65 L 3.47 L (4.2-5.4) M/mm3 Hgb 11.8 L 11.4 L (12.0-15.0) g/dL Hct 37.5 35.7 L (37.0-47.0) % Plt Count 198 195 (150-375) k/mm3 Lymph # (Auto) 0.66 L 0.48 L (0.9-3.2) K/mm3 [place] # (Auto) 0.5 0.8 H (0.1-0.6) K/mm3 Eos # (Auto) 0.0 0.0 (0-0.3) K/mm3 Baso # (Auto) 0.0 0.0 (0.0-0.1) K/mm3 Comprehensive Metabolic Panel 07/11/24 07/12/24 Range/Units 22:02 04:29 Sodium 140 137 (137-145) mmol/L Potassium 4.5 4.3 (3.4-5.0) mmol/L Chloride 105 99 (98-107) mmol/L Carbon Dioxide 29 31 H (22-30) mmol/L BUN 24 H 24 H (7-17) mg/dL Creatinine 1.07 H 1.11 H (0.7-1.0) mg/dL Glucose 96 108 (65-110) mg/dL Calcium 9.2 8.9 (8.4-10.2) mg/dL AST 19 19 (14-36) U/L ALT 13 13 (6-35) U/L Alkaline Phosphatase 88 91 (38-126) U/L Total Protein 7.0 6.0 L (6.3-8.2) g/dL Albumin 3.5 3.4 L (3.5-5.1) g/dL Intake and Output 07/11/24 07/12/24 07/12/24 23:59 07:59 15:59 Other: # Unmeasured Voids 1 Patient Weight 07/12/24 23:59 Weight 108.4 kg
[2024-07-12] MEDS: CYANOCOBALAMIN 1,000 MCG TABLET 1000 MCG PO (11:29)
[2024-07-12] MEDS: GABAPENTIN 100 MG CAPSULE 200 MG PO ×2 (11:29→20:43)
[2024-07-12] MEDS: FERROUS SULFATE 325 MG TABLET DR BY MOUTH (11:29)
[2024-07-12] MEDS: CHOLECALCIFEROL 400 UNITS TABLET (VIT D) PO (11:29)
[2024-07-12] MEDS: PANTOPRAZOLE 40 MG TABLET PO (11:30)
[2024-07-12] MEDS: amLODIPine BESYLATE 5 MG TABLET PO (11:30)
[2024-07-12] MEDS: SPIRONOLACTONE 25 MG TABLET PO (11:30)
[2024-07-12] MEDS: OPTI-GEN TAB 1 TABLET PO ×2 (11:30→20:44)
[2024-07-12] MEDS: ASPIRIN 81 MG ENTERIC TABLET PO (11:30)
[2024-07-12] MEDS: DULoxetine HCL 60 MG CAPSULE.DR PO (11:30)
[2024-07-12] MEDS: HEPARIN SODIUM 5,000 UNITS/ML VIAL 5000 UNITS SUB-Q ×2 (11:31→20:44)
[2024-07-12] MEDS: METOPROLOL SUCCINATE EXT REL 50 MG TABCR PO (11:31)
[2024-07-12] MEDS: FUROSEMIDE INJ 40 MG/4 ML VIAL IV PUSH ×2 (11:32→17:57)
[2024-07-12] MEDS: DICLOFENAC SOD 25 MG TABLET.EC 50 MG PO ×2 (13:36→17:57)
[2024-07-12] MEDS: OSELTAMIVIR PHOSPHATE 75 MG CAPSULE PO (13:36)
--- NOTE | 2024-07-12 14:00 | PC.NURSE ---
On 07/12/24, the student, [Porsche Hebert], provided care and completed [facility] documentation on this patient. I have reviewed the student's documentation and agree with the findings.
[2024-07-12] MEDS: ATORVASTATIN 10 MG TABLET PO (17:57)
--- NOTE | 2024-07-12 17:58 | P.PNIM_ITS ---
Progress Note: A&P Assessment and Plan (1) CHF exacerbation: Code(s): I50.9 - Heart failure, unspecified Status: Acute (2) Influenza A: Code(s): J10.1 - Influenza due to other identified influenza virus with other respiratory manifestations Status: Acute (3) NSTEMI (non-ST elevated myocardial infarction): Code(s): I21.4 - Non-ST elevation (NSTEMI) myocardial infarction Status: Acute Plan Acute and principal conditions 1. Acute hypoxic respiratory failure 2. Dyspnea 3. Influenza A infection. 4. Acute metabolic encephalopathy 5. NSTEMI. likely 2/2 demand-ischemia Rx: A. IV Lasix; Low Na diet; Strict I/O B. Supplemental oxygen C. CT brain, NH3, VBG D. Falls and safety precautions Chronic and stable conditions 1. Obesity. 2. CHFpEF 3. Healing left ninth rib fracture; Left humeral fracture; T7 fracture 4. GERD. 5. Dyslipidemia. 6. MELANIA. 7. pHTN 8. Wheelchair bound; Sedentary status. 9. Recurrent falls. Miscellaneous care 1. Code status. Full 2. Nutrition. Heart healthy; low Na 3. VTE prophylaxis. SCDs; ZOIE 84-year-old female resident of senior care was brought emergency department with shortness of breath is found to have a influenza A will start the patient on Tamiflu, and respiratory droplet a precaution, will continue to monitor. Subjective Date/time seen: 07/12/24 17:58 Interval history: Chief Complaint: 1. Shortness of breath 2. Leg swellings H&P-Narrative: Sherri Anne is an 84 F with a mhx significant for sedentary status, wheelchair bound, Hypothyroidism, obesity, pHTN, GERD. Cognitiive impairment, Hypertension. A resident of [facility], she was brought it due to concerns of hypoxia, malaise, fatigue; these were present at rest and aggravated by exertion; alleviated by rest; associated by anorexia, myalgia, loose non-bloody stools, increased somnolence, poor execution of her ADLs. This is associated with increased somnolence and a poor interactive reaction compared to baseline. She at baseline is wheelchair bound and sedentary due to recurrent falls and an unstable gait; she does not smoke/chew tobacco, drink alcohol or consume recreational/illicit drugs. 84-year-old female resident of senior care was brought emergency department with shortness of breath is found to have a influenza A will start the patient on Tamiflu, and respiratory droplet a precaution, will continue to monitor. Review of Systems Review of Systems: All systems reviewed & are unremarkable except as noted in HPI and below Exam 2 Narrative: Morbidly obese Patient is comfortable, NAD HEENT: eyes are clear and none icteric LUNGS: Bilateral poor air entry with rhonchi HEART: RR S1S2 ABD: BS+, Soft and nontender Lower extremities: no edema SKIN: nonjaundiced Neuro: grossly intact. Objective Data Vital Signs Vital Signs: Vital Signs - 24 hr 07/11/24 19:46 07/11/24 21:00 07/11/24 22:00 Temperature Pulse Rate 71 72 Respiratory Rate 14 Blood Pressure 101/48 L Pulse Oximetry 98 96 Oxygen Delivery Nasal Cannula Room Air Oxygen Flow Rate 2 07/11/24 22:00 07/11/24 22:30 07/11/24 23:44 Temperature Pulse Rate 72 72 81 Respiratory Rate 20 19 24 H Blood Pressure 115/56 L 109/82 110/55 L Pulse Oximetry 94 96 85 L Oxygen Delivery Oxygen Flow Rate 07/11/24 23:46 07/12/24 02:13 07/12/24 03:21 Temperature Pulse Rate 80 82 Respiratory Rate 18 19 Blood Pressure 120/67 101/82 Pulse Oximetry 95 98 96 Oxygen Delivery Nasal Cannula Oxygen Flow Rate 2 07/12/24 06:00 07/12/24 06:01 07/12/24 07:45 Temperature 37.1 C Pulse Rate 63 89 Respiratory Rate 16 Blood Pressure 148/72 H Pulse Oximetry 96 98 Oxygen Delivery Nasal Cannula Oxygen Flow Rate 2 07/12/24 08:00 07/12/24 08:45 07/12/24 10:00 Temperature Pulse Rate 86 81 Respiratory Rate Blood Pressure Pulse Oximetry 98 Oxygen Delivery Nasal Cannula Oxygen Flow Rate 2 07/12/24 11:31 07/12/24 11:45 07/12/24 12:00 Temperature 37.1 C Pulse Rate 85 87 88 Respiratory Rate 19 Blood Pressure 155/64 H Pulse Oximetry 98 Oxygen Delivery Oxygen Flow Rate 07/12/24 14:00 07/12/24 14:30 Temperature 36.6 C Pulse Rate 93 79 Respiratory Rate 20 Blood Pressure 112/45 L Pulse Oximetry 95 Oxygen Delivery Oxygen Flow Rate Intake/Output Intake/Output: Intake & Output 07/09/24 07/10/24 07/11/24 07/12/24 23:59 23:59 23:59 23:59 Intake Total 330 Output Total 1800 Balance -1470 Meds/Results Medications: Active Medications Generic Name Dose Route Start Last Admin Trade Name Freq PRN Reason Stop Dose Admin Acetaminophen 650 mg 07/12/24 10:02 Acetaminophen 325 Mg Tablet PO Q4H PRN pain Albuterol/Ipratropium 3 ml 07/12/24 04:07 Ipratropium 0.5 Mg/Albuterol Sulfate 2.5 Mg Ampul.Neb 3 Ml INHALATION Q4HRT PRN shortness of breath/Wheezing Amlodipine Besylate 5 mg 07/12/24 10:30 07/12/24 11:30 Amlodipine Besylate 5 Mg Tablet PO 5 mg DAILY ZOIE Administration Aspirin 81 mg 07/12/24 10:30 07/12/24 11:30 Aspirin 81 Mg Enteric Tablet PO 81 mg DAILY ZOIE Administration Atorvastatin Calcium 10 mg 07/12/24 18:00 07/12/24 17:57 Atorvastatin 10 Mg Tablet PO 10 mg QPM ZOIE Administration Cyanocobalamin 1,000 mcg 07/12/24 10:30 07/12/24 11:29 Cyanocobalamin 1,000 Mcg Tablet PO 1,000 mcg Q48HR ZOIE Administration Diclofenac Sodium 50 mg 07/12/24 13:00 07/12/24 17:57 Diclofenac Sod 25 Mg Tablet.Ec PO 50 mg TID ZOIE Administration Docusate Sodium 100 mg 07/12/24 10:02 Docusate Sodium 100 Mg Capsule PO DAILY PRN constipation Duloxetine HCl 60 mg 07/12/24 10:30 07/12/24 11:30 Duloxetine Hcl 60 Mg Capsule.Dr PO 60 mg DAILY ZOIE Administration Ferrous Sulfate 325 mg 07/12/24 10:30 07/12/24 11:29 Ferrous Sulfate [address] BY MOUTH 325 mg Q48HR ZOIE Administration Furosemide 40 mg 07/12/24 09:00 07/12/24 17:57 Furosemide Inj 40 Mg/4 Ml Vial IV PUSH 40 mg BID ZOIE Administration Gabapentin 200 mg 07/12/24 10:30 07/12/24 11:29 Gabapentin 100 Mg Capsule PO 200 mg Q12HR ZOIE Administration Guaifenesin/Dextromethorphan 10 ml 07/12/24 04:07 Guaifenesin/Dextromethorphan 10 Ml Udc PO Q4H PRN Cough Heparin Sodium (Porcine) 5,000 units 07/12/24 09:00 07/12/24 11:31 Heparin Sodium 5,000 Units/Ml Vial SUB-Q 5,000 units Q12HR ZOIE Administration Levothyroxine Sodium 75 mcg 07/12/24 10:30 07/12/24 11:32 Levothyroxine Sodium 75 Mcg Tablet PO Not Given DAILY@0630 ZOIE Melatonin 5 mg 07/12/24 04:07 Melatonin 5 Mg Tablet PO HS PRN Insomnia Metoprolol Succinate 50 mg 07/12/24 10:30 07/12/24 11:31 Metoprolol Succinate Ext Rel 50 Mg Tabcr PO 50 mg DAILY ZOIE Administration Miscellaneous Information 0 each 07/12/24 00:01 Vibegron (Gemtesa) Is Nonformulary - Can Patient Use From Home? XX 08/11/24 00:00 CLARIFY ZOIE Multivitamins/Minerals 1 tablet 07/12/24 10:35 07/12/24 11:30 Opti-Gen Tab PO 1 tablet Q12HR ZOIE Administration Non-Formulary Medication 75 mg 07/13/24 09:00 Vibegron [Gemtesa] PO 08/12/24 08:59 DAILY ZOIE Ondansetron HCl 4 mg 07/12/24 10:02 Ondansetron Hcl Odt 4 Mg Tablet PO Q6H PRN nausea and vomiting Oseltamivir Phosphate 30 mg 07/12/24 21:00 Oseltamivir Phosphate 30 Mg Capsule PO 07/16/24 21:01 Q12HR ZOIE Pantoprazole Sodium 40 mg 07/12/24 10:30 07/12/24 11:30 Pantoprazole 40 Mg Tablet PO 40 mg QAM ZOIE Administration Perflutren Lipid Microsphere 0 ml 07/12/24 04:23 Perflutren Lipid Microspheres 1.5 Ml Vial Diluted To 10 Ml Total Volume IV PUSH 07/15/24 04:23 ONCE PRN adequate visualization Protocol Polyethylene Glycol 17 gm 07/12/24 04:07 Polyethylene Glycol 3350 17 Gm Powd.Pack PO QAM PRN Constipation Polyethylene Glycol 17 gm 07/12/24 10:02 Polyethylene Glycol 3350 17 Gm Powd.Pack PO DAILY PRN constipation Prochlorperazine Edisylate 10 mg 07/12/24 04:07 Prochlorperazine Edisylate 10 Mg/2 Ml Vial IV PUSH Q6H PRN Nausea And Vomiting Spironolactone 25 mg 07/12/24 10:35 07/12/24 11:30 Spironolactone 25 Mg Tablet PO 25 mg DAILY ZOIE Administration Vitamin D 400 units 07/12/24 10:30 07/12/24 11:29 Cholecalciferol 400 Units Tablet (Vit D) PO 400 units DAILY ZOIE Administration Radiology Results: ITS Impressions Chest X-Ray 07/11/24 22:14 IMPRESSION: Cardiomegaly with bilateral interstitial thickening suggestive of pneumonitis versus edema. Fracture in the left proximal humerus. Chest CTA 07/12/24 00:00 IMPRESSION: 1. No pulmonary embolism. 2. No acute cardiopulmonary pathology. 3. Cholelithiasis. 4. Healing left ninth rib fracture. 5. Highly suggestive acute fracture of the T7. 6. Fracture left proximal humerus. Head CT 07/12/24 05:59 IMPRESSION: 1. No acute intracranial abnormality. Labs Labs: Laboratory Results - last 24 hr 07/11/24 07/12/24 07/12/24 22:02 00:29 02:11 WBC 7.3 RBC 3.65 L Hgb 11.8 L Hct 37.5 MCV 102.7 H MCH 32.3 MCHC 31.5 L RDW 13.8 Plt Count 198 MPV 9.8 Immature Gran % (Auto) 0.8 H Neut % (Auto) 83.1 H Lymph % (Auto) 9.1 L [place] % (Auto) 6.8 Eos % (Auto) 0.1 Baso % (Auto) 0.1 L Lymph # (Auto) 0.66 L [place] # (Auto) 0.5 Eos # (Auto) 0.0 Baso # (Auto) 0.0 Abs Immat Gran (auto) 0.06 H Absolute Neuts (auto) 6.0 Absolute Nucleated RBC 0.000 Nucleated RBC % 0.0 PT 13.5 INR 1.0 APTT 27.5 D-Dimer 2.41 H VBG pH VBG pCO2 VBG pO2 VBG HCO3 O2 Delivery Device O2 Liters/Min FiO2 Sodium 140 Potassium 4.5 Chloride 105 Carbon Dioxide 29 Anion Gap 6 BUN 24 H Creatinine 1.07 H Estim Creat Clear Calc 43 Estimated GFR 49 L Glucose 96 Hemoglobin A1c Lactic Acid 0.9 Calcium 9.2 Magnesium 2.0 Total Bilirubin 1.1 AST 19 ALT 13 Alkaline Phosphatase 88 Ammonia Troponin I 0.036 H* NT-Pro-B Natriuret Pep 2330 H Total Protein 7.0 Albumin 3.5 Urine Color Yellow Urine Appearance Cloudy H Urine pH 6.5 Ur Specific [place] 1.017 Urine Protein Negative Urine Glucose (UA) Negative Urine Ketones Negative Ur Blood (Man) Negative Urine Nitrate Negative Urine Bilirubin Negative Urine Urobilinogen 0.2 Leukocyte Esterase Rfl Trace H Urine RBC 0-2 Urine WBC 0-5 Ur Squamous Epith Cells None seen Urine Bacteria None seen Urine Casts 0-2 Influenza A (RT-PCR) Positive A Influenza B (RT-PCR) Negative SARS-CoV-2 RNA (RT-PCR) Negative 07/12/24 07/12/24 04:29 09:54 WBC 7.7 RBC 3.47 L Hgb 11.4 L Hct 35.7 L MCV 102.9 H MCH 32.9 MCHC 31.9 L RDW 13.7 Plt Count 195 MPV 9.9 Immature Gran % (Auto) 0.5 Neut % (Auto) 82.7 H Lymph % (Auto) 6.3 L Dav[place] % (Auto) 10.4 H Eos % (Auto) 0.0 Baso % (Auto) 0.1 L Lymph # (Auto) 0.48 L [place] # (Auto) 0.8 H Eos # (Auto) 0.0 Baso # (Auto) 0.0 Abs Immat Gran (auto) 0.04 H Absolute Neuts (auto) 6.4 Absolute Nucleated RBC 0.000 Nucleated RBC % 0.0 PT INR APTT D-Dimer VBG pH 7.346 VBG pCO2 51.3 H VBG pO2 31.5 L VBG HCO3 27.4 O2 Delivery Device Nasal cannula O2 Liters/Min 2.0 FiO2 28 Sodium 137 Potassium 4.3 Chloride 99 Carbon Dioxide 31 H Anion Gap 7 BUN 24 H Creatinine 1.11 H Estim Creat Clear Calc 41 Estimated GFR 47 L Glucose 108 Hemoglobin A1c 5.4 Lactic Acid Calcium 8.9 Magnesium Total Bilirubin 1.0 AST 19 ALT 13 Alkaline Phosphatase 91 Ammonia < 9 L Troponin I 0.021 D 0.020 NT-Pro-B Natriuret Pep Total Protein 6.0 L Albumin 3.4 L Urine Color Urine Appearance Urine pH Ur Specific [place] Urine Protein Urine Glucose (UA) Urine Ketones Ur Blood (Man) Urine Nitrate Urine Bilirubin Urine Urobilinogen Leukocyte Esterase Rfl Urine RBC Urine WBC Ur Squamous Epith Cells Urine Bacteria Urine Casts Influenza A (RT-PCR) Influenza B (RT-PCR) SARS-CoV-2 RNA (RT-PCR) Quality VTE Prophylaxis VTE prophylaxis: mechanical ordered and pharmacologic ordered
[2024-07-12] MEDS: OSELTAMIVIR PHOSPHATE 30 MG CAPSULE PO (20:44)
[2024-07-13] VITALS (11 sets, daily range): BP systolic 111–137; BP diastolic 54–68; PULSE 65–85; RESP 16–20; TEMP 36.3–37.1; O2SAT 95–99
[2024-07-13 05:03] LABS: Basophils Percent Auto 0.1 % (0.2-1.2); Eosinophils Percent Auto 0.1 % (0-4.4); Hematocrit 34.6 % (37.0-47.0); Hemoglobin 10.9 g/dL (12.0-15.0); Immature Granulocyte Absolute 0.03 K/mm3 (0.00-0.031); Immature Granulocyte Percent A 0.4 % (0-0.5); Lymphocytes Absolute Auto 0.74 K/mm3 (0.9-3.2); Mean Corpuscular HGB Conc 31.5 g/dl (32-36); Mean Corpuscular Hemoglobin 31.7 pg (26-34); Mean Corpuscular Volume 100.6 fl (80-100); Mean Platelet Volume 9.9 fl (7.4-10.4); Monocytes Absolute Auto 1.1 K/mm3 (0.1-0.6); Monocytes Percent Auto 13.3 % (2.6-8.5); Neutrophils Absolute Auto 6.4 K/mm3 (1.3-6.7); Neutrophils Percent Auto 77.1 % (45.5-73.1); Platelet Count Result 186 k/mm3 (150-375); Red Blood Count 3.44 M/mm3 (4.2-5.4); Red Cell Distribution Width 13.5 % (11.5-14.5); White Blood Count 8.2 K/mm3 (4.5-10.0)
[2024-07-13 05:12] LABS: Alanine Aminotransferase 13 U/L (6-35); Albumin Level 3.2 g/dL (3.5-5.1); Alkaline Phosphatase 84 U/L (38-126); Anion Gap 7 mmol/L (4-12); Aspartate Amino Transferase 23 U/L (14-36); Blood Urea Nitrogen 29 mg/dL (7-17); Calcium 8.6 mg/dL (8.4-10.2); Carbon Dioxide 34 mmol/L (22-30); Chloride 97 mmol/L (98-107); Estimated CRCL calculation 34 ml/min; Estimated Glomerular Filt Rate 39; Glucose 96 mg/dL (65-110); Magnesium 1.9 mg/dL (1.6-2.3); Potassium 4.1 mmol/L (3.4-5.0); Sodium 138 mmol/L (137-145)
[2024-07-13] MEDS: LEVOTHYROXINE SODIUM 75 MCG TABLET PO (06:35)
[2024-07-13] MEDS: FUROSEMIDE INJ 40 MG/4 ML VIAL IV PUSH ×2 (10:14→17:52)
[2024-07-13] MEDS: HEPARIN SODIUM 5,000 UNITS/ML VIAL 5000 UNITS SUB-Q ×2 (10:14→21:36)
[2024-07-13] MEDS: METOPROLOL SUCCINATE EXT REL 50 MG TABCR PO (10:15)
[2024-07-13] MEDS: GABAPENTIN 100 MG CAPSULE 200 MG PO ×2 (10:15→21:34)
[2024-07-13] MEDS: amLODIPine BESYLATE 5 MG TABLET PO (10:15)
[2024-07-13] MEDS: OPTI-GEN TAB 1 TABLET PO ×2 (10:15→21:35)
[2024-07-13] MEDS: DICLOFENAC SOD 25 MG TABLET.EC 50 MG PO ×3 (10:15→19:27)
[2024-07-13] MEDS: ASPIRIN 81 MG ENTERIC TABLET PO (10:15)
[2024-07-13] MEDS: PANTOPRAZOLE 40 MG TABLET PO (10:16)
[2024-07-13] MEDS: DULoxetine HCL 60 MG CAPSULE.DR PO (10:16)
[2024-07-13] MEDS: CHOLECALCIFEROL 400 UNITS TABLET (VIT D) PO (10:17)
[2024-07-13] MEDS: SPIRONOLACTONE 25 MG TABLET PO (10:17)
[2024-07-13] MEDS: OSELTAMIVIR PHOSPHATE 30 MG CAPSULE PO ×2 (10:17→21:35)
--- NOTE | 2024-07-13 13:03 | PC.NURSE ---
pt transferred from IMU to /S Rm. [id number] @1228 07/13/24. This RN assumed care.
--- NOTE | 2024-07-13 13:44 | P.PNIM_ITS ---
Progress Note: A&P Assessment and Plan (1) CHF exacerbation: Code(s): I50.9 - Heart failure, unspecified Status: Acute (2) Influenza A: Code(s): J10.1 - Influenza due to other identified influenza virus with other respiratory manifestations Status: Acute (3) NSTEMI (non-ST elevated myocardial infarction): Code(s): I21.4 - Non-ST elevation (NSTEMI) myocardial infarction Status: Acute Plan Acute and principal conditions 1. Acute hypoxic respiratory failure 2. Dyspnea 3. Influenza A infection. 4. Acute metabolic encephalopathy 5. NSTEMI. likely 2/2 demand-ischemia Rx: A. IV Lasix; Low Na diet; Strict I/O B. Supplemental oxygen C. CT brain, NH3, VBG D. Falls and safety precautions Chronic and stable conditions 1. Obesity. 2. CHFpEF 3. Healing left ninth rib fracture; Left humeral fracture; T7 fracture 4. GERD. 5. Dyslipidemia. 6. MELANIA. 7. pHTN 8. Wheelchair bound; Sedentary status. 9. Recurrent falls. Miscellaneous care 1. Code status. Full 2. Nutrition. Heart healthy; low Na 3. VTE prophylaxis. SCDs; ZOIE 84-year-old female resident of care home was brought emergency department with shortness of breath is found to have a influenza A, started the patient on Tamiflu, and respiratory droplet a precaution, today patient complaints of cough and wheezing, and does not feel well, will continue to monitor. Subjective Date/time seen: 07/13/24 13:44 Interval history: Chief Complaint: 1. Shortness of breath 2. Leg swellings H&P-Narrative: Sherri Anne is an 84 F with a mhx significant for sedentary status, wheelchair bound, Hypothyroidism, obesity, pHTN, GERD. Cognitiive impairment, Hypertension. A resident of [facility], she was brought it due to concerns of hypoxia, malaise, fatigue; these were present at rest and aggravated by exertion; alleviated by rest; associated by anorexia, myalgia, loose non-bloody stools, increased somnolence, poor execution of her ADLs. This is associated with increased somnolence and a poor interactive reaction compared to baseline. She at baseline is wheelchair bound and sedentary due to recurrent falls and an unstable gait; she does not smoke/chew tobacco, drink alcohol or consume recreational/illicit drugs. 84-year-old female resident of care home was brought emergency department with shortness of breath is found to have a influenza A, started the patient on Tamiflu, and respiratory droplet a precaution, today patient complaints of cough and wheezing, and does not feel well, will continue to monitor. Review of Systems Review of Systems: All systems reviewed & are unremarkable except as noted in HPI and below Exam Narrative: Morbidly obese Patient is comfortable, NAD HEENT: eyes are clear and none icteric LUNGS: Bilateral poor air entry with rhonchi HEART: RR S1S2 ABD: BS+, Soft and nontender Lower extremities: no edema SKIN: nonjaundiced Neuro: grossly intact. Objective Data Vital Signs Vital Signs: Vital Signs - 24 hr 07/12/24 14:00 07/12/24 14:30 07/12/24 16:00 Temperature 36.6 C Pulse Rate 93 79 88 Respiratory Rate 20 Blood Pressure 112/45 L Pulse Oximetry 95 Oxygen Delivery Oxygen Flow Rate 07/12/24 18:00 07/12/24 18:38 07/12/24 20:00 Temperature 36.6 C Pulse Rate 94 75 Respiratory Rate 20 Blood Pressure 123/47 L Pulse Oximetry 90 90 Oxygen Delivery Nasal Cannula Oxygen Flow Rate 2 07/12/24 20:00 07/12/24 22:00 07/13/24 00:00 Temperature 36.3 C L Pulse Rate 68 70 67 Respiratory Rate 20 Blood Pressure 137/68 Pulse Oximetry 95 Oxygen Delivery Oxygen Flow Rate 07/13/24 00:00 07/13/24 00:00 07/13/24 02:00 Temperature Pulse Rate 71 70 Respiratory Rate Blood Pressure Pulse Oximetry 95 Oxygen Delivery Nasal Cannula Oxygen Flow Rate 2 07/13/24 04:00 07/13/24 04:00 07/13/24 06:00 Temperature 37.0 C Pulse Rate 72 70 70 Respiratory Rate 20 Blood Pressure 123/54 L Pulse Oximetry 95 Oxygen Delivery Oxygen Flow Rate 07/13/24 07:46 07/13/24 08:00 07/13/24 10:00 Temperature 36.8 C Pulse Rate 67 85 76 Respiratory Rate 20 Blood Pressure 129/58 L Pulse Oximetry 98 Oxygen Delivery Oxygen Flow Rate 07/13/24 10:15 07/13/24 12:39 Temperature 36.9 C Pulse Rate 76 70 Respiratory Rate 16 Blood Pressure 135/61 Pulse Oximetry 99 Oxygen Delivery Oxygen Flow Rate Intake/Output Intake/Output: Intake & Output 07/10/24 07/11/24 07/12/24 07/13/24 23:59 23:59 23:59 23:59 Intake Total 570 300 Output Total 1800 700 Balance -1230 -400 Meds/Results Medications: Active Medications Generic Name Dose Route Start Last Admin Trade Name Freq PRN Reason Stop Dose Admin Acetaminophen 650 mg 07/12/24 10:02 Acetaminophen 325 Mg Tablet PO Q4H PRN pain Albuterol/Ipratropium 3 ml 07/12/24 04:07 Ipratropium 0.5 Mg/Albuterol Sulfate 2.5 Mg Ampul.Neb 3 Ml INHALATION Q4HRT PRN shortness of breath/Wheezing Amlodipine Besylate 5 mg 07/12/24 10:30 07/13/24 10:15 Amlodipine Besylate 5 Mg Tablet PO 5 mg DAILY ZOIE Administration Aspirin 81 mg 07/12/24 10:30 07/13/24 10:15 Aspirin 81 Mg Enteric Tablet PO 81 mg DAILY ZOIE Administration Atorvastatin Calcium 10 mg 07/12/24 18:00 07/12/24 17:57 Atorvastatin 10 Mg Tablet PO 10 mg QPM ZOIE Administration Cyanocobalamin 1,000 mcg 07/12/24 10:30 07/12/24 11:29 Cyanocobalamin 1,000 Mcg Tablet PO 1,000 mcg Q48HR ZOIE Administration Diclofenac Sodium 50 mg 07/12/24 13:00 07/13/24 10:15 Diclofenac Sod 25 Mg Tablet.Ec PO 50 mg TID ZOIE Administration Docusate Sodium 100 mg 07/12/24 10:02 Docusate Sodium 100 Mg Capsule PO DAILY PRN constipation Duloxetine HCl 60 mg 07/12/24 10:30 07/13/24 10:16 Duloxetine Hcl 60 Mg Capsule.Dr PO 60 mg DAILY ZOIE Administration Ferrous Sulfate 325 mg 07/12/24 10:30 07/12/24 11:29 Ferrous Sulfate [address] BY MOUTH 325 mg Q48HR ZOIE Administration Furosemide 40 mg 07/12/24 09:00 07/13/24 10:14 Furosemide Inj 40 Mg/4 Ml Vial IV PUSH 40 mg BID ZOIE Administration Gabapentin 200 mg 07/12/24 10:30 07/13/24 10:15 Gabapentin 100 Mg Capsule PO 200 mg Q12HR ZOIE Administration Guaifenesin/Dextromethorphan 10 ml 07/12/24 04:07 Guaifenesin/Dextromethorphan 10 Ml Udc PO Q4H PRN Cough Heparin Sodium (Porcine) 5,000 units 07/12/24 09:00 07/13/24 10:14 Heparin Sodium 5,000 Units/Ml Vial SUB-Q 5,000 units Q12HR ZOIE Administration Levothyroxine Sodium 75 mcg 07/12/24 10:30 07/13/24 06:35 Levothyroxine Sodium 75 Mcg Tablet PO 75 mcg DAILY@0630 ZOIE Administration Melatonin 5 mg 07/12/24 04:07 Melatonin 5 Mg Tablet PO HS PRN Insomnia Metoprolol Succinate 50 mg 07/12/24 10:30 07/13/24 10:15 Metoprolol Succinate Ext Rel 50 Mg Tabcr PO 50 mg DAILY ZOIE Administration Miscellaneous Information 0 each 07/12/24 00:01 07/13/24 11:52 Vibegron (Gemtesa) Is Nonformulary - Can Patient Use From Home? XX 08/11/24 00:00 Not Given CLARIFY ZOIE Multivitamins/Minerals 1 tablet 07/12/24 10:35 07/13/24 10:15 Opti-Gen Tab PO 1 tablet Q12HR ZOIE Administration Non-Formulary Medication 75 mg 07/13/24 09:00 Vibegron [Gemtesa] PO 08/12/24 08:59 DAILY ZOIE Ondansetron HCl 4 mg 07/12/24 10:02 Ondansetron Hcl Odt 4 Mg Tablet PO Q6H PRN nausea and vomiting Oseltamivir Phosphate 30 mg 07/12/24 21:00 07/13/24 10:17 Oseltamivir Phosphate 30 Mg Capsule PO 07/16/24 21:01 30 mg Q12HR ZOIE Administration Pantoprazole Sodium 40 mg 07/12/24 10:30 07/13/24 10:16 Pantoprazole 40 Mg Tablet PO 40 mg QAM ZOIE Administration Perflutren Lipid Microsphere 0 ml 07/12/24 04:23 Perflutren Lipid Microspheres 1.5 Ml Vial Diluted To 10 Ml Total Volume IV PUSH 07/15/24 04:23 ONCE PRN adequate visualization Protocol Polyethylene Glycol 17 gm 07/12/24 04:07 Polyethylene Glycol 3350 17 Gm Powd.Pack PO QAM PRN Constipation Polyethylene Glycol 17 gm 07/12/24 10:02 Polyethylene Glycol 3350 17 Gm Powd.Pack PO DAILY PRN constipation Prochlorperazine Edisylate 10 mg 07/12/24 04:07 Prochlorperazine Edisylate 10 Mg/2 Ml Vial IV PUSH Q6H PRN Nausea And Vomiting Spironolactone 25 mg 07/12/24 10:35 07/13/24 10:17 Spironolactone 25 Mg Tablet PO 25 mg DAILY ZOIE Administration Vitamin D 400 units 07/12/24 10:30 07/13/24 10:17 Cholecalciferol 400 Units Tablet (Vit D) PO 400 units DAILY ZOIE Administration Radiology Results: ITS Impressions Chest X-Ray 07/11/24 22:14 IMPRESSION: Cardiomegaly with bilateral interstitial thickening suggestive of pneumonitis versus edema. Fracture in the left proximal humerus. Chest CTA 07/12/24 00:00 IMPRESSION: 1. No pulmonary embolism. 2. No acute cardiopulmonary pathology. 3. Cholelithiasis. 4. Healing left ninth rib fracture. 5. Highly suggestive acute fracture of the T7. 6. Fracture left proximal humerus. Head CT 07/12/24 05:59 IMPRESSION: 1. No acute intracranial abnormality. Labs Labs: Laboratory Results - last 24 hr 07/13/24 04:31 WBC 8.2 RBC 3.44 L Hgb 10.9 L Hct 34.6 L MCV 100.6 H MCH 31.7 MCHC 31.5 L RDW 13.5 Plt Count 186 MPV 9.9 Immature Gran % (Auto) 0.4 Neut % (Auto) 77.1 H Lymph % (Auto) 9.0 L [place] % (Auto) 13.3 H Eos % (Auto) 0.1 Baso % (Auto) 0.1 L Lymph # (Auto) 0.74 L [place] # (Auto) 1.1 H Eos # (Auto) 0.0 Baso # (Auto) 0.0 Abs Immat Gran (auto) 0.03 Absolute Neuts (auto) 6.4 Absolute Nucleated RBC 0.000 Nucleated RBC % 0.0 Sodium 138 Potassium 4.1 Chloride 97 L Carbon Dioxide 34 H Anion Gap 7 BUN 29 H Creatinine 1.31 H Estim Creat Clear Calc 34 Estimated GFR 39 L Glucose 96 Calcium 8.6 Magnesium 1.9 Total Bilirubin 1.0 AST 23 ALT 13 Alkaline Phosphatase 84 Total Protein 6.0 L Albumin 3.2 L Quality VTE Prophylaxis VTE prophylaxis: mechanical ordered and pharmacologic ordered
--- NOTE | 2024-07-13 15:41 | PCOTNOTE ---
Pt. has left humerus, T-& and T-11 fracture. Spoke with RN and she will discuss an orthopedic consult with MD to clear pt. for therapy. Will continue to follow.
[2024-07-13] MEDS: ATORVASTATIN 10 MG TABLET PO (17:51)
[2024-07-13] MEDS: MELATONIN 5 MG TABLET PO (21:35)
[2024-07-13] MEDS: guaiFENesin/DEXTROMETHORPHAN 10 ML UDC PO (21:35)
[2024-07-13] MEDS: ACETAMINOPHEN 325 MG TABLET 650 MG PO (21:41)
[2024-07-14] MEDS: LEVOTHYROXINE SODIUM 75 MCG TABLET PO (06:01)
[2024-07-14 06:11] VITALS: BP 119/63; PULSE 62; RESP 20; TEMP 36.1; O2SAT 98
[2024-07-14 09:09] LABS: Eosinophils Absolute Auto 0.1 K/mm3 (0-0.3); Eosinophils Percent Auto 2.6 % (0-4.4); Hemoglobin 11.3 g/dL (12.0-15.0); Immature Granulocyte Absolute 0.02 K/mm3 (0.00-0.031); Immature Granulocyte Percent A 0.4 % (0-0.5); Lymphocytes Absolute Auto 0.98 K/mm3 (0.9-3.2); Lymphocytes Percent Auto 21.3 % (18.3-44.2); Mean Corpuscular HGB Conc 32.3 g/dl (32-36); Mean Corpuscular Hemoglobin 32.5 pg (26-34); Mean Corpuscular Volume 100.6 fl (80-100); Mean Platelet Volume 10.2 fl (7.4-10.4); Monocytes Absolute Auto 0.9 K/mm3 (0.1-0.6); Monocytes Percent Auto 19.6 % (2.6-8.5); Neutrophils Absolute Auto 2.6 K/mm3 (1.3-6.7); Neutrophils Percent Auto 56.1 % (45.5-73.1); Platelet Count Result 193 k/mm3 (150-375); Red Blood Count 3.48 M/mm3 (4.2-5.4); Red Cell Distribution Width 13.3 % (11.5-14.5); White Blood Count 4.6 K/mm3 (4.5-10.0)
[2024-07-14 09:11] LABS: Alanine Aminotransferase 13 U/L (6-35); Albumin Level 3.2 g/dL (3.5-5.1); Alkaline Phosphatase 86 U/L (38-126); Anion Gap 7 mmol/L (4-12); Aspartate Amino Transferase 21 U/L (14-36); Bilirubin,Total 0.9 mg/dL (0.2-1.3); Blood Urea Nitrogen 40 mg/dL (7-17); Calcium 8.5 mg/dL (8.4-10.2); Carbon Dioxide 34 mmol/L (22-30); Chloride 97 mmol/L (98-107); Estimated CRCL calculation 26 ml/min; Estimated Glomerular Filt Rate 29; Glucose 105 mg/dL (65-110); Magnesium 2.1 mg/dL (1.6-2.3); Sodium 138 mmol/L (137-145)
[2024-07-14] MEDS: DICLOFENAC SOD 25 MG TABLET.EC 50 MG PO ×3 (09:11→17:20)
[2024-07-14] MEDS: METOPROLOL SUCCINATE EXT REL 50 MG TABCR PO (09:11)
[2024-07-14] MEDS: amLODIPine BESYLATE 5 MG TABLET PO (09:12)
[2024-07-14] MEDS: FUROSEMIDE INJ 40 MG/4 ML VIAL IV PUSH ×2 (09:12→17:20)
[2024-07-14] MEDS: HEPARIN SODIUM 5,000 UNITS/ML VIAL 5000 UNITS SUB-Q ×2 (09:12→20:57)
[2024-07-14] MEDS: DULoxetine HCL 60 MG CAPSULE.DR PO (09:12)
[2024-07-14] MEDS: FERROUS SULFATE 325 MG TABLET DR BY MOUTH (09:12)
[2024-07-14] MEDS: CHOLECALCIFEROL 400 UNITS TABLET (VIT D) PO (09:12)
[2024-07-14] MEDS: OSELTAMIVIR PHOSPHATE 30 MG CAPSULE PO ×2 (09:12→20:57)
[2024-07-14] MEDS: GABAPENTIN 100 MG CAPSULE 200 MG PO ×2 (09:12→20:57)
[2024-07-14] MEDS: CYANOCOBALAMIN 1,000 MCG TABLET 1000 MCG PO (09:12)
[2024-07-14] MEDS: SPIRONOLACTONE 25 MG TABLET PO (09:12)
[2024-07-14] MEDS: ASPIRIN 81 MG ENTERIC TABLET PO (09:12)
[2024-07-14] MEDS: OPTI-GEN TAB 1 TABLET PO ×2 (09:12→20:57)
[2024-07-14] MEDS: PANTOPRAZOLE 40 MG TABLET PO (09:12)
--- NOTE | 2024-07-14 11:44 | PM.CNOR ---
Assessment and Plan Assessment and plan (1) Fracture of humerus, proximal, left, closed: Qualifiers: Encounter type: subsequent encounter Fracture morphology: other fracture Fracture alignment: displaced Fracture healing: with delayed healing Qualified Code(s): S42.292G - Other displaced fracture of upper end of left humerus, subsequent encounter for fracture with delayed healing Code(s): S42.202A - Unspecified fracture of upper end of left humerus, initial encounter for closed fracture Status: Acute Assessment and Plan: 84-year-old woman admitted for heart problems and found to have for chronic fracture of the left proximal humerus on chest x-ray. She has already been evaluated and treated for this and is undergoing therapy. There is some question bone healing the chest x-ray and so will go ahead obtain new dedicated radiographs of the shoulder. She has only minimal achy type pain after they work with her and therapy with the shoulder. She is neurovascular intact. Will have therapy continue to work with her. We will review the radiographs for any further treatment recommendations. She can be weight-bearing as tolerated in regard to the left arm. History of Present Illness HPI Consult date: 07/14/24 Requesting physician: Dave Prescott MD Consult reason: fracture Chief complaint: Left shoulder fracture Narrative: 84-year-old woman admitted for shortness of breath and heart problems found to have left proximal humerus fracture on chest x-ray. Asked to see patient to evaluate. She states she fell year ago. She has been treated [facility]. She is undergoing therapy for a back problem as well as her shoulder states occasionally she has achy pain but otherwise no problems the left shoulder Review of Systems Constitutional: Constitutional: Denies fever(s) Eyes: Eyes: Denies blurry vision ENT: Reports Normal hearing present Cardiovascular: Cardiovascular: Denies chest pain and Denies dyspnea Respiratory: Respiratory: Denies dyspnea and Denies wheezing Gastrointestinal: Gastrointestinal: Denies abdominal pain Genitourinary: Genitourinary: Denies urinary urgency Musculoskeletal: Musculoskeletal: Reports as per HPI and Denies numbness Integumentary/Breasts: Skin/Breast: Denies changing lesions and Denies sores Neurologic: Reports Normal hearing present, Denies behavioral changes, Denies confusion, Denies numbness and Denies convulsions Psychiatric: Psychiatric: Denies behavioral changes, Denies confusion and Denies hallucinations Endocrine: Endocrine: Denies heat intolerance Hematologic/Lymphatic: Hematologic/Lymphatic: Denies easy bleeding Allergic/Immunologic: Allergic/Immunologic: Denies wheezing [facility] Past Medical History Medical History (Updated 07/14/24 @ 11:46 by Guilherme King MD) Fracture of humerus, proximal, left, closed Family History Family History Father Acute myocardial infarction Social History Social History Smoking status: Never smoker Alcohol intake: former Substance use: never Substance use type: does not use Do You Feel Safe in your Home?: Yes Lack of Transportation: No Lack of Food: Never True Current Housing: I Have Housing Concerned About Future Housing: No Difficulty Paying Gas/Electric Bills: No Difficulty Paying for Meds: No Currently Unemployed: No Education: Grade School Difficulty w/ Childcare or Family Care: No Spiritual care concerns: No Meds Home Medications and Allergies Home Medications ?Medication ?Instructions ?Recorded ?Confirmed ?Type acetaminophen 325 mg capsule 650 mg PO Q4H PRN pain 07/12/24 07/12/24 History amlodipine 5 mg tablet 5 mg PO DAILY 07/12/24 07/12/24 History aspirin 81 mg tablet,delayed 81 mg PO DAILY 07/12/24 07/12/24 History release atorvastatin 10 mg tablet 10 mg PO QPM 07/12/24 07/12/24 History cholecalciferol (vitamin D3) 10 10 mcg PO DAILY 07/12/24 07/12/24 History mcg (400 unit) tablet (Vitamin D3) cyanocobalamin (vitamin B-12) 1,000 mcg PO EVERY OTHER DAY 07/12/24 07/12/24 History 1,000 mcg capsule diclofenac sodium 50 mg 50 mg PO TID 07/12/24 07/12/24 History tablet,delayed release docusate sodium 100 mg capsule 100 mg PO DAILY PRN constipation 07/12/24 07/12/24 History duloxetine 60 mg capsule,delayed 60 mg PO DAILY 07/12/24 07/12/24 History release ferrous sulfate 325 mg (65 mg 325 mg PO EVERY OTHER DAY 07/12/24 07/12/24 History iron) tablet (FeroSul) gabapentin 100 mg capsule 200 mg PO BID 07/12/24 07/12/24 History levothyroxine 75 mcg tablet 75 mcg PO DAILY 07/12/24 07/12/24 History metoprolol succinate 50 mg 50 mg PO DAILY 07/12/24 07/12/24 History tablet,extended release 24 hr omeprazole 40 mg capsule,delayed 40 mg PO DAILY 07/12/24 07/12/24 History release ondansetron 4 mg disintegrating 4 mg PO Q6H PRN nausea and vomiting 07/12/24 07/12/24 History tablet polyethylene glycol 3350 17 17 g PO DAILY PRN constipation 07/12/24 07/12/24 History gram/dose oral powder spironolactone 25 mg tablet 25 mg PO DAILY 07/12/24 07/12/24 History vibegron 75 mg tablet (Gemtesa) 75 mg PO DAILY 07/12/24 07/12/24 History vit A 300 mcg-C 200 mg-E 27 1 tablet PO BID 07/12/24 07/12/24 History mg-lutein 2 mg and minerals tablet (Ocuvite with Lutein) Allergies Allergy/AdvReac Type Severity Reaction Status Date / Time hydrocodone Allergy Hallucinati Verified 07/12/24 06:13 ng oxycodone Allergy Hallucinati Verified 07/12/24 06:13 ng Vital Signs Vital Signs - 24 hr 07/13/24 12:39 07/13/24 20:00 07/13/24 21:50 Temperature 98.4 F 98.7 F Pulse Rate 70 65 Respiratory Rate 16 16 Blood Pressure 135/61 111/60 Pulse Oximetry 99 98 98 Oxygen Delivery Nasal Cannula Oxygen Flow Rate 2 07/14/24 06:11 07/14/24 10:30 Temperature 97.0 F L Pulse Rate 62 Respiratory Rate 20 Blood Pressure 119/63 Pulse Oximetry 98 Oxygen Delivery Nasal Cannula Oxygen Flow Rate 2 Exam Const: General: No in distress or confusion Orientation/consciousness: oriented to person, oriented to place and oriented to time HENMT: Head: normal to inspection, normocephalic and atraumatic Eyes: Conjunctivae: conjunctivae normal Sclera: sclerae normal Neck: Neck: supple and nontender Resp: Effort & Inspection: normal respiratory effort and no audible wheezes Skin: General skin exam: no rashes or lesions noted Neuro: General: oriented to person, oriented to place, oriented to time and No confusion Extrem: Right upper extremity: shoulder/upper arm axillary nerve sensory function normal, normal ROM (FF 130, Abd 120, ER 70, IR T7) and other (RC 5/5, Bicep 5/5, Deltoid 5/5, ER 5/5); no tenderness and no swelling, elbow/forearm normal ROM; no tenderness and no swelling, wrist normal ROM and radial pulse present; no tenderness and Extremity exam: right hand neuromotor exam normal wrist extension normal, thumb opposition normal, thumb IP flexion normal and fingers 2-5 ABduction normal, neurosensory exam normal radial nerve sensory function normal, ulnar nerve sensory function normal, median nerve sensory function normal and digital nerve sensory function normal and vascular exam radial pulse present and normal capillary refill; no tenderness, no swelling and no crepitus Left upper extremity: normal to inspection, shoulder/upper arm inspection abnormal, tenderness of the A-C joint, of the proximal humerus, over the subacromial bursa and other (anterolateral acromion, gh joint), axillary nerve sensory function normal, abnormal ROM pain with active ROM in ABduction and in internal rotation, pain with passive ROM in internal rotation and external rotation- and with range as follows (FF 100, Abd 80, ER 30, IR hip) and other (RC 4/5, Bicep 4/5, Deltoid 5-/5, ER 4/5); no swelling, elbow/forearm normal ROM; no tenderness and no swelling, wrist normal ROM and radial pulse present; no tenderness and hand neuromotor exam normal Details: wrist extension normal and thumb IP flexion normal, neurosensory exam normal Details: radial nerve sensory function normal, ulnar nerve sensory function normal and median nerve sensory function normal, tendon exam normal Location: of all digits and vascular exam normal capillary refill; no tenderness Results Labs 07/14/24 08:42 07/14/24 08:42 Labs: Abnormal lab results 07/14/24 Range/Units 08:42 RBC 3.48 L (4.2-5.4) M/mm3 Hgb 11.3 L (12.0-15.0) g/dL Hct 35.0 L (37.0-47.0) % MCV 100.6 H (80-100) fl [place] % (Auto) 19.6 H (2.6-8.5) % Baso % (Auto) 0.0 L (0.2-1.2) % [place] # (Auto) 0.9 H (0.1-0.6) K/mm3 Chloride 97 L (98-107) mmol/L Carbon Dioxide 34 H (22-30) mmol/L BUN 40 H D (7-17) mg/dL Creatinine 1.69 H (0.7-1.0) mg/dL Estimated GFR 29 L (59 - ) Total Protein 6.0 L (6.3-8.2) g/dL Albumin 3.2 L (3.5-5.1) g/dL H & H 07/11/24 07/12/24 07/13/24 Range/Units 22:02 04:29 04:31 Hgb 11.8 L 11.4 L 10.9 L (12.0-15.0) g/dL Hct 37.5 35.7 L 34.6 L (37.0-47.0) % 07/14/24 Range/Units 08:42 Hgb 11.3 L (12.0-15.0) g/dL Hct 35.0 L (37.0-47.0) % Coagulation 07/11/24 Range/Units 22:02 INR 1.0 All other labs normal.
--- NOTE | 2024-07-14 12:00 | PM.IMPN ---
Progress Note: A&P Assessment and Plan (1) CHF exacerbation: Code(s): I50.9 - Heart failure, unspecified Status: Acute (2) Influenza A: Code(s): J10.1 - Influenza due to other identified influenza virus with other respiratory manifestations Status: Acute (3) NSTEMI (non-ST elevated myocardial infarction): Code(s): I21.4 - Non-ST elevation (NSTEMI) myocardial infarction Status: Acute Plan Acute and principal conditions 1. Acute hypoxic respiratory failure 2. Dyspnea 3. Influenza A infection. 4. Acute metabolic encephalopathy 5. NSTEMI. likely 2/2 demand-ischemia Rx: A. IV Lasix; Low Na diet; Strict I/O B. Supplemental oxygen C. CT brain, NH3, VBG D. Falls and safety precautions Chronic and stable conditions 1. Obesity. 2. CHFpEF 3. Healing left ninth rib fracture; Left humeral fracture; T7 fracture 4. GERD. 5. Dyslipidemia. 6. MELANIA. 7. pHTN 8. Wheelchair bound; Sedentary status. 9. Recurrent falls. Miscellaneous care 1. Code status. Full 2. Nutrition. Heart healthy; low Na 3. VTE prophylaxis. SCDs; ZOIE 84-year-old female [place] was brought emergency department with shortness of breath is found to have a influenza A, started the patient on Tamiflu, and respiratory droplet a precaution, today patient states cough and wheezing, are better and does feel well, will continue to monitor. Will discharge the patient tomorrow. Subjective Date/time seen: 07/14/24 12:00 Interval history: Chief Complaint: 1. Shortness of breath 2. Leg swellings H&P-Narrative: Sherri Anne is an 84 F with a mhx significant for sedentary status, wheelchair bound, Hypothyroidism, obesity, pHTN, GERD. Cognitiive impairment, Hypertension. A resident of [facility], she was brought it due to concerns of hypoxia, malaise, fatigue; these were present at rest and aggravated by exertion; alleviated by rest; associated by anorexia, myalgia, loose non-bloody stools, increased somnolence, poor execution of her ADLs. This is associated with increased somnolence and a poor interactive reaction compared to baseline. She at baseline is wheelchair bound and sedentary due to recurrent falls and an unstable gait; she does not smoke/chew tobacco, drink alcohol or consume recreational/illicit drugs. 84-year-old female resident of [facility] was brought emergency department with shortness of breath is found to have a influenza A, started the patient on Tamiflu, and respiratory droplet a precaution, today patient states cough and wheezing, are better and does feel well, will continue to monitor. Will discharge the patient tomorrow. Review of Systems Review of Systems: All systems reviewed & are unremarkable except as noted in HPI and below Exam Narrative: Morbidly obese Patient is comfortable, NAD HEENT: eyes are clear and none icteric LUNGS: Bilateral poor air entry with rhonchi HEART: RR S1S2 ABD: BS+, Soft and nontender Lower extremities: no edema SKIN: nonjaundiced Neuro: grossly intact. Objective Data Vital Signs Vital Signs: Vital Signs - 24 hr 07/13/24 12:39 07/13/24 20:00 07/13/24 21:50 Temperature 36.9 C 37.1 C Pulse Rate 70 65 Respiratory Rate 16 16 Blood Pressure 135/61 111/60 Pulse Oximetry 99 98 98 Oxygen Delivery Nasal Cannula Oxygen Flow Rate 2 07/14/24 06:11 07/14/24 10:30 Temperature 36.1 C L Pulse Rate 62 Respiratory Rate 20 Blood Pressure 119/63 Pulse Oximetry 98 Oxygen Delivery Nasal Cannula Oxygen Flow Rate 2 Intake/Output Intake/Output: Intake & Output 07/11/24 07/12/24 07/13/24 07/14/24 23:59 23:59 23:59 23:59 Intake Total 570 300 587 Output Total 1800 1050 550 Balance -1230 -750 37 Meds/Results Medications: Active Medications Generic Name Dose Route Start Last Admin Trade Name Freq PRN Reason Stop Dose Admin Acetaminophen 650 mg 07/12/24 10:02 07/13/24 21:41 Acetaminophen 325 Mg Tablet PO 650 mg Q4H PRN Administration pain Albuterol/Ipratropium 3 ml 07/12/24 04:07 Ipratropium 0.5 Mg/Albuterol Sulfate 2.5 Mg Ampul.Neb 3 Ml INHALATION Q4HRT PRN shortness of breath/Wheezing Amlodipine Besylate 5 mg 07/12/24 10:30 07/14/24 09:12 Amlodipine Besylate 5 Mg Tablet PO 5 mg DAILY ZOIE Administration Aspirin 81 mg 07/12/24 10:30 07/14/24 09:12 Aspirin 81 Mg Enteric Tablet PO 81 mg DAILY ZOIE Administration Atorvastatin Calcium 10 mg 07/12/24 18:00 07/13/24 17:51 Atorvastatin 10 Mg Tablet PO 10 mg QPM ZOIE Administration Cyanocobalamin 1,000 mcg 07/12/24 10:30 07/14/24 09:12 Cyanocobalamin 1,000 Mcg Tablet PO 1,000 mcg Q48HR ZOIE Administration Diclofenac Sodium 50 mg 07/12/24 13:00 07/14/24 09:11 Diclofenac Sod 25 Mg Tablet.Ec PO 50 mg TID ZOIE Administration Docusate Sodium 100 mg 07/12/24 10:02 Docusate Sodium 100 Mg Capsule PO DAILY PRN constipation Duloxetine HCl 60 mg 07/12/24 10:30 07/14/24 09:12 Duloxetine Hcl 60 Mg Capsule.Dr PO 60 mg DAILY ZOIE Administration Ferrous Sulfate 325 mg 07/12/24 10:30 07/14/24 09:12 Ferrous Sulfate [address] BY MOUTH 325 mg Q48HR ZOIE Administration Furosemide 40 mg 07/12/24 09:00 07/14/24 09:12 Furosemide Inj 40 Mg/4 Ml Vial IV PUSH 40 mg BID ZOIE Administration Gabapentin 200 mg 07/12/24 10:30 07/14/24 09:12 Gabapentin 100 Mg Capsule PO 200 mg Q12HR ZOIE Administration Guaifenesin/Dextromethorphan 10 ml 07/12/24 04:07 07/13/24 21:35 Guaifenesin/Dextromethorphan 10 Ml Udc PO 10 ml Q4H PRN Administration Cough Heparin Sodium (Porcine) 5,000 units 07/12/24 09:00 07/14/24 09:12 Heparin Sodium 5,000 Units/Ml Vial SUB-Q 5,000 units Q12HR ZOIE Administration Levothyroxine Sodium 75 mcg 07/12/24 10:30 07/14/24 06:01 Levothyroxine Sodium 75 Mcg Tablet PO 75 mcg DAILY@0630 ZOIE Administration Melatonin 5 mg 07/12/24 04:07 07/13/24 21:35 Melatonin 5 Mg Tablet PO 5 mg HS PRN Administration Insomnia Metoprolol Succinate 50 mg 07/12/24 10:30 07/14/24 09:11 Metoprolol Succinate Ext Rel 50 Mg Tabcr PO 50 mg DAILY ZOIE Administration Miscellaneous Information 0 each 07/12/24 00:01 07/14/24 04:09 Vibegron (Gemtesa) Is Nonformulary - Can Patient Use From Home? XX 08/11/24 00:00 Not Given CLARIFY ZOIE Multivitamins/Minerals 1 tablet 07/12/24 10:35 07/14/24 09:12 Opti-Gen Tab PO 1 tablet Q12HR ZOIE Administration Non-Formulary Medication 75 mg 07/13/24 09:00 Vibegron [Gemtesa] PO 08/12/24 08:59 DAILY ZOIE Ondansetron HCl 4 mg 07/12/24 10:02 Ondansetron Hcl Odt 4 Mg Tablet PO Q6H PRN nausea and vomiting Oseltamivir Phosphate 30 mg 07/12/24 21:00 07/14/24 09:12 Oseltamivir Phosphate 30 Mg Capsule PO 07/16/24 21:01 30 mg Q12HR ZOIE Administration Pantoprazole Sodium 40 mg 07/12/24 10:30 07/14/24 09:12 Pantoprazole 40 Mg Tablet PO 40 mg QAM ZOIE Administration Perflutren Lipid Microsphere 0 ml 07/12/24 04:23 Perflutren Lipid Microspheres 1.5 Ml Vial Diluted To 10 Ml Total Volume IV PUSH 07/15/24 04:23 ONCE PRN adequate visualization Protocol Polyethylene Glycol 17 gm 07/12/24 04:07 Polyethylene Glycol 3350 17 Gm Powd.Pack PO QAM PRN Constipation Polyethylene Glycol 17 gm 07/12/24 10:02 Polyethylene Glycol 3350 17 Gm Powd.Pack PO DAILY PRN constipation Prochlorperazine Edisylate 10 mg 07/12/24 04:07 Prochlorperazine Edisylate 10 Mg/2 Ml Vial IV PUSH Q6H PRN Nausea And Vomiting Spironolactone 25 mg 07/12/24 10:35 07/14/24 09:12 Spironolactone 25 Mg Tablet PO 25 mg DAILY ZOIE Administration Vitamin D 400 units 07/12/24 10:30 07/14/24 09:12 Cholecalciferol 400 Units Tablet (Vit D) PO 400 units DAILY ZOIE Administration Radiology Results: ITS Impressions Chest X-Ray 07/11/24 22:14 IMPRESSION: Cardiomegaly with bilateral interstitial thickening suggestive of pneumonitis versus edema. Fracture in the left proximal humerus. Chest CTA 07/12/24 00:00 IMPRESSION: 1. No pulmonary embolism. 2. No acute cardiopulmonary pathology. 3. Cholelithiasis. 4. Healing left ninth rib fracture. 5. Highly suggestive acute fracture of the T7. 6. Fracture left proximal humerus. Head CT 07/12/24 05:59 IMPRESSION: 1. No acute intracranial abnormality. Labs Labs: Laboratory Results - last 24 hr 07/14/24 08:42 WBC 4.6 RBC 3.48 L Hgb 11.3 L Hct 35.0 L MCV 100.6 H MCH 32.5 MCHC 32.3 RDW 13.3 Plt Count 193 MPV 10.2 Immature Gran % (Auto) 0.4 Neut % (Auto) 56.1 Lymph % (Auto) 21.3 [place] % (Auto) 19.6 H Eos % (Auto) 2.6 Baso % (Auto) 0.0 L Lymph # (Auto) 0.98 [place] # (Auto) 0.9 H Eos # (Auto) 0.1 Baso # (Auto) 0.0 Abs Immat Gran (auto) 0.02 Absolute Neuts (auto) 2.6 Absolute Nucleated RBC 0.000 Nucleated RBC % 0.0 Sodium 138 Potassium 4.0 Chloride 97 L Carbon Dioxide 34 H Anion Gap 7 BUN 40 H D Creatinine 1.69 H Estim Creat Clear Calc 26 Estimated GFR 29 L Glucose 105 Calcium 8.5 Magnesium 2.1 Total Bilirubin 0.9 AST 21 ALT 13 Alkaline Phosphatase 86 Total Protein 6.0 L Albumin 3.2 L Quality VTE Prophylaxis VTE prophylaxis: mechanical ordered and pharmacologic ordered
[2024-07-14 14:00] VITALS: BP 106/81; PULSE 66; RESP 18; TEMP 36.4; O2SAT 99
[2024-07-14] MEDS: ATORVASTATIN 10 MG TABLET PO (17:20)
[2024-07-15] MEDS: LEVOTHYROXINE SODIUM 75 MCG TABLET PO (04:43)
[2024-07-15 05:30] VITALS: BP 139/55; PULSE 70; RESP 16; TEMP 36.8; O2SAT 97
[2024-07-15 06:40] LABS: Basophils Percent Auto 0.2 % (0.2-1.2); Eosinophils Absolute Auto 0.2 K/mm3 (0-0.3); Eosinophils Percent Auto 5.5 % (0-4.4); Hematocrit 34.8 % (37.0-47.0); Hemoglobin 11.1 g/dL (12.0-15.0); Immature Granulocyte Absolute 0.01 K/mm3 (0.00-0.031); Immature Granulocyte Percent A 0.2 % (0-0.5); Lymphocytes Absolute Auto 1.53 K/mm3 (0.9-3.2); Lymphocytes Percent Auto 34.9 % (18.3-44.2); Mean Corpuscular HGB Conc 31.9 g/dl (32-36); Mean Corpuscular Hemoglobin 32.4 pg (26-34); Mean Corpuscular Volume 101.5 fl (80-100); Mean Platelet Volume 10.6 fl (7.4-10.4); Monocytes Absolute Auto 0.7 K/mm3 (0.1-0.6); Monocytes Percent Auto 16.9 % (2.6-8.5); Neutrophils Absolute Auto 1.9 K/mm3 (1.3-6.7); Neutrophils Percent Auto 42.3 % (45.5-73.1); Platelet Count Result 197 k/mm3 (150-375); Red Blood Count 3.43 M/mm3 (4.2-5.4); Red Cell Distribution Width 13.2 % (11.5-14.5); White Blood Count 4.4 K/mm3 (4.5-10.0)
[2024-07-15 06:59] LABS: Alanine Aminotransferase 11 U/L (6-35); Albumin Level 3.2 g/dL (3.5-5.1); Alkaline Phosphatase 82 U/L (38-126); Anion Gap 9 mmol/L (4-12); Aspartate Amino Transferase 19 U/L (14-36); Bilirubin,Total 0.7 mg/dL (0.2-1.3); Blood Urea Nitrogen 45 mg/dL (7-17); Calcium 8.6 mg/dL (8.4-10.2); Carbon Dioxide 35 mmol/L (22-30); Chloride 96 mmol/L (98-107); Estimated CRCL calculation 26 ml/min; Estimated Glomerular Filt Rate 29; Glucose 101 mg/dL (65-110); Magnesium 2.1 mg/dL (1.6-2.3); Sodium 140 mmol/L (137-145)
[2024-07-15 08:00] VITALS: O2SAT 85
[2024-07-15 08:10] VITALS: O2SAT 92
[2024-07-15 08:14] VITALS: O2SAT 93
[2024-07-15] MEDS: DICLOFENAC SOD 25 MG TABLET.EC 50 MG PO ×3 (09:15→17:06)
[2024-07-15] MEDS: amLODIPine BESYLATE 5 MG TABLET PO (09:15)
[2024-07-15] MEDS: SPIRONOLACTONE 25 MG TABLET PO (09:15)
[2024-07-15] MEDS: HEPARIN SODIUM 5,000 UNITS/ML VIAL 5000 UNITS SUB-Q ×2 (09:15→20:07)
[2024-07-15] MEDS: PANTOPRAZOLE 40 MG TABLET PO (09:15)
[2024-07-15] MEDS: METOPROLOL SUCCINATE EXT REL 50 MG TABCR PO (09:15)
[2024-07-15] MEDS: OSELTAMIVIR PHOSPHATE 30 MG CAPSULE PO ×2 (09:15→20:09)
[2024-07-15] MEDS: OPTI-GEN TAB 1 TABLET PO ×2 (09:15→20:09)
[2024-07-15] MEDS: DOCUSATE SODIUM 100 MG CAPSULE PO (09:15)
[2024-07-15] MEDS: GABAPENTIN 100 MG CAPSULE 200 MG PO ×2 (09:15→20:09)
[2024-07-15] MEDS: ASPIRIN 81 MG ENTERIC TABLET PO (09:15)
[2024-07-15] MEDS: CHOLECALCIFEROL 400 UNITS TABLET (VIT D) PO (09:16)
[2024-07-15] MEDS: DULoxetine HCL 60 MG CAPSULE.DR PO (09:16)
--- NOTE | 2024-07-15 09:25 | PM.PNORT ---
Progress Note: A&P Assessment and Plan (1) Fracture of humerus, proximal, left, closed: Qualifiers: Encounter type: subsequent encounter Fracture morphology: other fracture Fracture alignment: displaced Fracture healing: with delayed healing Qualified Code(s): S42.292G - Other displaced fracture of upper end of left humerus, subsequent encounter for fracture with delayed healing Code(s): S42.202A - Unspecified fracture of upper end of left humerus, initial encounter for closed fracture Status: Acute Assessment and Plan: 84-year-old woman admitted for heart problems and found to have for chronic fracture of the left proximal humerus on chest x-ray. She has already been evaluated and treated for this and is undergoing therapy. There is some question bone healing the chest x-ray and so new dedicated radiographs of the shoulder were obtained. Radiographs revealed comminuted, displaced, chronic fracture of the surgical neck of the left humerus. This fracture was previously/actively treated. She continues to deny new/worsening pain. She is NV intact. She can be weight-bearing as tolerated in regard to the left arm. PT/OT. She can follow up with her previously established orthopedic surgeon upon d/c from the hospital. We will follow peripherally. Contact us for any questions/concerns or new issues. Plan Reviewed history, exam, radiographs and current labs with attending MD and covering surgeon, Dr. King, who agrees with current plan as indicated above. No further recommendations from Dr. King at this time. Subjective Subjective Date/Time Seen: 07/15/24 09:25 Interval history: Left shoulder fracture x1 year old, seen incidentally on chest XR. Review of Systems Constitutional: Constitutional: Denies fever(s) Eyes: Eyes: Denies blurry vision ENT: Reports Normal hearing present Cardiovascular: Cardiovascular: Denies chest pain and Denies dyspnea Respiratory: Respiratory: Denies dyspnea and Denies wheezing Gastrointestinal: Gastrointestinal: Denies abdominal pain Genitourinary: Genitourinary: Denies urinary urgency Musculoskeletal: Musculoskeletal: Reports as per HPI and Denies numbness Integumentary/Breasts: Skin/Breast: Denies changing lesions and Denies sores Neurologic: Reports Normal hearing present, Denies behavioral changes, Denies confusion, Denies numbness and Denies convulsions Psychiatric: Psychiatric: Denies behavioral changes, Denies confusion and Denies hallucinations Endocrine: Endocrine: Denies heat intolerance Hematologic/Lymphatic: Hematologic/Lymphatic: Denies easy bleeding Allergic/Immunologic: Allergic/Immunologic: Denies wheezing Exam Const: General: No in distress or confusion Orientation/consciousness: oriented to person, oriented to place, oriented to time and No confusion HENMT: Head: normal to inspection, normocephalic and atraumatic Eyes: Conjunctivae: conjunctivae normal Sclera: sclerae normal Neck: Neck: supple and nontender Resp: Effort & Inspection: normal respiratory effort and no audible wheezes Skin: General skin exam: no rashes or lesions noted Neuro: General: oriented to person, oriented to place, oriented to time and No confusion Cranial nerves: Yes Normal hearing present Extrem: Right upper extremity: shoulder/upper arm axillary nerve sensory function normal, normal ROM (FF 130, Abd 120, ER 70, IR T7) and other (RC 5/5, Bicep 5/5, Deltoid 5/5, ER 5/5); no tenderness and no swelling, elbow/forearm normal ROM; no tenderness and no swelling, wrist normal ROM and radial pulse present; no tenderness and Extremity exam: right hand neuromotor exam normal wrist extension normal, thumb opposition normal, thumb IP flexion normal and fingers 2-5 ABduction normal, neurosensory exam normal radial nerve sensory function normal, ulnar nerve sensory function normal, median nerve sensory function normal and digital nerve sensory function normal and vascular exam radial pulse present and normal capillary refill; no tenderness, no swelling and no crepitus Left upper extremity: normal to inspection, shoulder/upper arm inspection abnormal, tenderness of the A-C joint, of the proximal humerus, over the subacromial bursa and other (anterolateral acromion, gh joint), axillary nerve sensory function normal, abnormal ROM pain with active ROM in ABduction and in internal rotation, pain with passive ROM in internal rotation and external rotation- and with range as follows (FF 100, Abd 80, ER 30, IR hip) and other (RC 4/5, Bicep 4/5, Deltoid 5-/5, ER 4/5); no swelling, elbow/forearm normal ROM; no tenderness and no swelling, wrist normal ROM and radial pulse present; no tenderness and hand neuromotor exam normal Details: wrist extension normal and thumb IP flexion normal, neurosensory exam normal Details: radial nerve sensory function normal, ulnar nerve sensory function normal and median nerve sensory function normal, tendon exam normal Location: of all digits and vascular exam normal capillary refill; no tenderness Objective Data Vital Signs Vital Signs: Vital Signs - 24 hr 07/14/24 10:30 07/14/24 14:00 07/15/24 05:30 Temperature 36.4 C L 36.8 C Pulse Rate 66 70 Respiratory Rate 18 16 Blood Pressure 106/81 139/55 L Pulse Oximetry 99 97 Oxygen Delivery Nasal Cannula Oxygen Flow Rate 2 Fraction of Inspired Oxygen 07/15/24 08:14 Temperature Pulse Rate Respiratory Rate Blood Pressure Pulse Oximetry 93 Oxygen Delivery Nasal Cannula Oxygen Flow Rate 2 Fraction of Inspired Oxygen 28 Intake/Output Intake/Output: Intake & Output 07/12/24 07/13/24 07/14/24 07/15/24 23:59 23:59 23:59 23:59 Intake Total 570 300 827 Output Total 1800 1050 1300 450 Balance -1230 -750 -473 -450 Meds/Results Medications: Active Medications Generic Name Dose Route Start Last Admin Trade Name Freq PRN Reason Stop Dose Admin Acetaminophen 650 mg 07/12/24 10:02 07/13/24 21:41 Acetaminophen 325 Mg Tablet PO 650 mg Q4H PRN Administration pain Albuterol/Ipratropium 3 ml 07/12/24 04:07 Ipratropium 0.5 Mg/Albuterol Sulfate 2.5 Mg Ampul.Neb 3 Ml INHALATION Q4HRT PRN shortness of breath/Wheezing Amlodipine Besylate 5 mg 07/12/24 10:30 07/15/24 09:15 Amlodipine Besylate 5 Mg Tablet PO 5 mg DAILY ZOIE Administration Aspirin 81 mg 07/12/24 10:30 07/15/24 09:15 Aspirin 81 Mg Enteric Tablet PO 81 mg DAILY ZOIE Administration Atorvastatin Calcium 10 mg 07/12/24 18:00 07/14/24 17:20 Atorvastatin 10 Mg Tablet PO 10 mg QPM ZOIE Administration Cyanocobalamin 1,000 mcg 07/12/24 10:30 07/14/24 09:12 Cyanocobalamin 1,000 Mcg Tablet PO 1,000 mcg Q48HR ZOIE Administration Diclofenac Sodium 50 mg 07/12/24 13:00 07/15/24 09:15 Diclofenac Sod 25 Mg Tablet.Ec PO 50 mg TID ZOIE Administration Docusate Sodium 100 mg 07/12/24 10:02 07/15/24 09:15 Docusate Sodium 100 Mg Capsule PO 100 mg DAILY PRN Administration constipation Duloxetine HCl 60 mg 07/12/24 10:30 07/15/24 09:16 Duloxetine Hcl 60 Mg Capsule.Dr PO 60 mg DAILY ZOIE Administration Ferrous Sulfate 325 mg 07/12/24 10:30 07/14/24 09:12 Ferrous Sulfate [address] BY MOUTH 325 mg Q48HR ZOIE Administration Furosemide 40 mg 07/12/24 09:00 07/15/24 09:16 Furosemide Inj 40 Mg/4 Ml Vial IV PUSH Not Given BID ZOIE Gabapentin 200 mg 07/12/24 10:30 07/15/24 09:15 Gabapentin 100 Mg Capsule PO 200 mg Q12HR ZOIE Administration Guaifenesin/Dextromethorphan 10 ml 07/12/24 04:07 07/13/24 21:35 Guaifenesin/Dextromethorphan 10 Ml Udc PO 10 ml Q4H PRN Administration Cough Heparin Sodium (Porcine) 5,000 units 07/12/24 09:00 07/15/24 09:15 Heparin Sodium 5,000 Units/Ml Vial SUB-Q 5,000 units Q12HR ZOIE Administration Sodium Chloride 1,000 mls @ 125 mls/hr 07/15/24 07:55 07/15/24 09:13 Normal Saline Iv IV CONT 125 mls/hr .Q8H ZOIE Administration Levothyroxine Sodium 75 mcg 07/12/24 10:30 07/15/24 04:43 Levothyroxine Sodium 75 Mcg Tablet PO 75 mcg DAILY@0630 ZOIE Administration Melatonin 5 mg 07/12/24 04:07 07/13/24 21:35 Melatonin 5 Mg Tablet PO 5 mg HS PRN Administration Insomnia Metoprolol Succinate 50 mg 07/12/24 10:30 07/15/24 09:15 Metoprolol Succinate Ext Rel 50 Mg Tabcr PO 50 mg DAILY ZOIE Administration Miscellaneous Information 0 each 07/12/24 00:01 07/14/24 04:09 Vibegron (Gemtesa) Is Nonformulary - Can Patient Use From Home? XX 08/11/24 00:00 Not Given CLARIFY ZOIE Multivitamins/Minerals 1 tablet 07/12/24 10:35 07/15/24 09:15 Opti-Gen Tab PO 1 tablet Q12HR ZOIE Administration Non-Formulary Medication 75 mg 07/13/24 09:00 Vibegron [Gemtesa] PO 08/12/24 08:59 DAILY ZOIE Ondansetron HCl 4 mg 07/12/24 10:02 Ondansetron Hcl Odt 4 Mg Tablet PO Q6H PRN nausea and vomiting Oseltamivir Phosphate 30 mg 07/12/24 21:00 07/15/24 09:15 Oseltamivir Phosphate 30 Mg Capsule PO 07/16/24 21:01 30 mg Q12HR ZOIE Administration Pantoprazole Sodium 40 mg 07/12/24 10:30 07/15/24 09:15 Pantoprazole 40 Mg Tablet PO 40 mg QAM ZOIE Administration Polyethylene Glycol 17 gm 07/12/24 04:07 Polyethylene Glycol 3350 17 Gm Powd.Pack PO QAM PRN Constipation Polyethylene Glycol 17 gm 07/12/24 10:02 Polyethylene Glycol 3350 17 Gm Powd.Pack PO DAILY PRN constipation Prochlorperazine Edisylate 10 mg 07/12/24 04:07 Prochlorperazine Edisylate 10 Mg/2 Ml Vial IV PUSH Q6H PRN Nausea And Vomiting Spironolactone 25 mg 07/12/24 10:35 07/15/24 09:15 Spironolactone 25 Mg Tablet PO 25 mg DAILY ZOIE Administration Vitamin D 400 units 07/12/24 10:30 07/15/24 09:16 Cholecalciferol 400 Units Tablet (Vit D) PO 400 units DAILY ZOIE Administration Radiology Results: ITS Impressions Chest X-Ray 07/11/24 22:14 IMPRESSION: Cardiomegaly with bilateral interstitial thickening suggestive of pneumonitis versus edema. Fracture in the left proximal humerus. Chest CTA 07/12/24 00:00 IMPRESSION: 1. No pulmonary embolism. 2. No acute cardiopulmonary pathology. 3. Cholelithiasis. 4. Healing left ninth rib fracture. 5. Highly suggestive acute fracture of the T7. 6. Fracture left proximal humerus. Head CT 07/12/24 05:59 IMPRESSION: 1. No acute intracranial abnormality. Shoulder X-Ray 07/14/24 12:04 Impression: Comminuted, displaced, probable subacute fracture of the surgical neck of the left humerus. Labs Labs: Laboratory Results - last 24 hr 07/15/24 05:37 WBC 4.4 L RBC 3.43 L Hgb 11.1 L Hct 34.8 L MCV 101.5 H MCH 32.4 MCHC 31.9 L RDW 13.2 Plt Count 197 MPV 10.6 H Immature Gran % (Auto) 0.2 Neut % (Auto) 42.3 L Lymph % (Auto) 34.9 [facility] [place] % (Auto) 16.9 H Eos % (Auto) 5.5 H Baso % (Auto) 0.2 Lymph # (Auto) 1.53 [facility] # (Auto) 0.7 H Eos # (Auto) 0.2 Baso # (Auto) 0.0 Abs Immat Gran (auto) 0.01 Absolute Neuts (auto) 1.9 Absolute Nucleated RBC 0.000 Nucleated RBC % 0.0 Sodium 140 Potassium 4.0 Chloride 96 L Carbon Dioxide 35 H Anion Gap 9 BUN 45 H Creatinine 1.71 H Estim Creat Clear Calc 26 Estimated GFR 29 L Glucose 101 Calcium 8.6 Magnesium 2.1 Total Bilirubin 0.7 AST 19 ALT 11 Alkaline Phosphatase 82 Total Protein 6.0 L Albumin 3.2 L
[2024-07-15] MEDS: SODIUM CHLORIDE 0.9% IV 1,000 ML 125 ML IV CONT ×2 (11:45→20:11)
--- NOTE | 2024-07-15 13:17 | P.PNIM_ITS ---
Progress Note: A&P Assessment and Plan (1) CHF exacerbation: Code(s): I50.9 - Heart failure, unspecified Status: Acute (2) Influenza A: Code(s): J10.1 - Influenza due to other identified influenza virus with other respiratory manifestations Status: Acute (3) NSTEMI (non-ST elevated myocardial infarction): Code(s): I21.4 - Non-ST elevation (NSTEMI) myocardial infarction Status: Acute Plan Acute and principal conditions 1. Acute hypoxic respiratory failure 2. Dyspnea 3. Influenza A infection. 4. Acute metabolic encephalopathy 5. NSTEMI. likely 2/2 demand-ischemia Rx: A. IV Lasix; Low Na diet; Strict I/O B. Supplemental oxygen C. CT brain, NH3, VBG D. Falls and safety precautions Chronic and stable conditions 1. Obesity. 2. CHFpEF 3. Healing left ninth rib fracture; Left humeral fracture; T7 fracture 4. GERD. 5. Dyslipidemia. 6. MELANIA. 7. pHTN 8. Wheelchair bound; Sedentary status. 9. Recurrent falls. Miscellaneous care 1. Code status. Full 2. Nutrition. Heart healthy; low Na 3. VTE prophylaxis. SCDs; ZOIE 84-year-old female resident of group home was brought emergency department with shortness of breath is found to have a influenza A, started the patient on Tamiflu, and respiratory droplet a precaution, today patient states cough and wheezing, are better and does feel well, however patient had been diuresed and Scr is rising to 1.71 to 131 upon arrival, will stop Lasix and gently hydrate and monitor her kidney function, the patient further recommendation to follow. also upon arrival chest x-ray showed old left shoulder fracture which 1 yr old, had been treated in the past with PT, seen by ortheopedic service and does not recommend any further treatment. Subjective Date/time seen: 07/15/24 13:17 Interval history: Chief Complaint: 1. Shortness of breath 2. Leg swellings H&P-Narrative: Sherri Anne is an 84 F with a mhx significant for sedentary status, wheelchair bound, Hypothyroidism, obesity, pHTN, GERD. Cognitiive impairment, Hypertension. A resident of [facility], she was brought it due to concerns of hypoxia, malaise, fatigue; these were present at rest and aggravated by exertion; alleviated by rest; associated by anorexia, myalgia, loose non-bloody stools, increased somnolence, poor execution of her ADLs. This is associated with increased somnolence and a poor interactive reaction compared to baseline. She at baseline is wheelchair bound and sedentary due to recurrent falls and an unstable gait; she does not smoke/chew tobacco, drink alcohol or consume recreational/illicit drugs. 84-year-old female resident of group home was brought emergency department with shortness of breath is found to have a influenza A, started the patient on Tamiflu, and respiratory droplet a precaution, today patient states cough and wheezing, are better and does feel well, however patient had been diuresed and Scr is rising to 1.71 to 131 upon arrival, will stop Lasix and gently hydrate and monitor her kidney function, the patient further recommendation to follow. also upon arrival chest x-ray showed old left shoulder fracture which 1 yr old, had been treated in the past with PT, seen by ortheopedic service and does not recommend any further treatment. Review of Systems Review of Systems: All systems reviewed & are unremarkable except as noted in HPI and below Exam Narrative: Morbidly obese Patient is comfortable, NAD HEENT: eyes are clear and none icteric LUNGS: Bilateral poor air entry with rhonchi HEART: RR S1S2 ABD: BS+, Soft and nontender Lower extremities: no edema SKIN: nonjaundiced Neuro: grossly intact. Objective Data Vital Signs Vital Signs: Vital Signs - 24 hr 07/14/24 14:00 07/15/24 05:30 07/15/24 08:00 Temperature 36.4 C L 36.8 C Pulse Rate 66 70 Respiratory Rate 18 16 Blood Pressure 106/81 139/55 L Pulse Oximetry 99 97 85 L Oxygen Delivery Room Air Oxygen Flow Rate Fraction of Inspired Oxygen 28 07/15/24 08:10 07/15/24 08:14 Temperature Pulse Rate Respiratory Rate Blood Pressure Pulse Oximetry 92 93 Oxygen Delivery Nasal Cannula Nasal Cannula Oxygen Flow Rate 1 2 Fraction of Inspired Oxygen 28 Intake/Output Intake/Output: Intake & Output 07/12/24 07/13/24 07/14/24 07/15/24 23:59 23:59 23:59 23:59 Intake Total 570 300 827 0 Output Total 1800 1050 1300 450 Balance -1230 -750 -473 -450 Meds/Results Medications: Active Medications Generic Name Dose Route Start Last Admin Trade Name Lelo PRN Reason Stop Dose Admin Acetaminophen 650 mg 07/12/24 10:02 07/13/24 21:41 Acetaminophen 325 Mg Tablet PO 650 mg Q4H PRN Administration pain Albuterol/Ipratropium 3 ml 07/12/24 04:07 Ipratropium 0.5 Mg/Albuterol Sulfate 2.5 Mg Ampul.Neb 3 Ml INHALATION Q4HRT PRN shortness of breath/Wheezing Amlodipine Besylate 5 mg 07/12/24 10:30 07/15/24 09:15 Amlodipine Besylate 5 Mg Tablet PO 5 mg DAILY ZOIE Administration Aspirin 81 mg 07/12/24 10:30 07/15/24 09:15 Aspirin 81 Mg Enteric Tablet PO 81 mg DAILY ZOIE Administration Atorvastatin Calcium 10 mg 07/12/24 18:00 07/14/24 17:20 Atorvastatin 10 Mg Tablet PO 10 mg QPM ZOIE Administration Cyanocobalamin 1,000 mcg 07/12/24 10:30 07/14/24 09:12 Cyanocobalamin 1,000 Mcg Tablet PO 1,000 mcg Q48HR ZOIE Administration Diclofenac Sodium 50 mg 07/12/24 13:00 07/15/24 12:13 Diclofenac Sod 25 Mg Tablet.Ec PO 50 mg TID ZOIE Administration Docusate Sodium 100 mg 07/12/24 10:02 07/15/24 09:15 Docusate Sodium 100 Mg Capsule PO 100 mg DAILY PRN Administration constipation Duloxetine HCl 60 mg 07/12/24 10:30 07/15/24 09:16 Duloxetine Hcl 60 Mg Capsule.Dr PO 60 mg DAILY ZOIE Administration Ferrous Sulfate 325 mg 07/12/24 10:30 07/14/24 09:12 Ferrous Sulfate [address] BY MOUTH 325 mg Q48HR ZOIE Administration Furosemide 40 mg 07/12/24 09:00 07/15/24 09:16 Furosemide Inj 40 Mg/4 Ml Vial IV PUSH Not Given BID ZOIE Gabapentin 200 mg 07/12/24 10:30 07/15/24 09:15 Gabapentin 100 Mg Capsule PO 200 mg Q12HR ZOIE Administration Guaifenesin/Dextromethorphan 10 ml 07/12/24 04:07 07/13/24 21:35 Guaifenesin/Dextromethorphan 10 Ml Udc PO 10 ml Q4H PRN Administration Cough Heparin Sodium (Porcine) 5,000 units 07/12/24 09:00 07/15/24 09:15 Heparin Sodium 5,000 Units/Ml Vial SUB-Q 5,000 units Q12HR ZOIE Administration Sodium Chloride 1,000 mls @ 125 mls/hr 07/15/24 07:55 07/15/24 11:45 Normal Saline Iv IV CONT 125 mls/hr .Q8H ZOIE Administration Levothyroxine Sodium 75 mcg 07/12/24 10:30 07/15/24 04:43 Levothyroxine Sodium 75 Mcg Tablet PO 75 mcg DAILY@0630 ZOIE Administration Melatonin 5 mg 07/12/24 04:07 07/13/24 21:35 Melatonin 5 Mg Tablet PO 5 mg HS PRN Administration Insomnia Metoprolol Succinate 50 mg 07/12/24 10:30 07/15/24 09:15 Metoprolol Succinate Ext Rel 50 Mg Tabcr PO 50 mg DAILY ZOIE Administration Multivitamins/Minerals 1 tablet 07/12/24 10:35 07/15/24 09:15 Opti-Gen Tab PO 1 tablet Q12HR ZOIE Administration Ondansetron HCl 4 mg 07/12/24 10:02 Ondansetron Hcl Odt 4 Mg Tablet PO Q6H PRN nausea and vomiting Oseltamivir Phosphate 30 mg 07/12/24 21:00 07/15/24 09:15 Oseltamivir Phosphate 30 Mg Capsule PO 07/16/24 21:01 30 mg Q12HR ZOIE Administration Pantoprazole Sodium 40 mg 07/12/24 10:30 07/15/24 09:15 Pantoprazole 40 Mg Tablet PO 40 mg QAM ZOIE Administration Polyethylene Glycol 17 gm 07/12/24 04:07 Polyethylene Glycol 3350 17 Gm Powd.Pack PO QAM PRN Constipation Polyethylene Glycol 17 gm 07/12/24 10:02 Polyethylene Glycol 3350 17 Gm Powd.Pack PO DAILY PRN constipation Prochlorperazine Edisylate 10 mg 07/12/24 04:07 Prochlorperazine Edisylate 10 Mg/2 Ml Vial IV PUSH Q6H PRN Nausea And Vomiting Spironolactone 25 mg 07/12/24 10:35 07/15/24 09:15 Spironolactone 25 Mg Tablet PO 25 mg DAILY ZOIE Administration Vitamin D 400 units 07/12/24 10:30 07/15/24 09:16 Cholecalciferol 400 Units Tablet (Vit D) PO 400 units DAILY ZOIE Administration Radiology Results: ITS Impressions Chest X-Ray 07/11/24 22:14 IMPRESSION: Cardiomegaly with bilateral interstitial thickening suggestive of pneumonitis versus edema. Fracture in the left proximal humerus. Chest CTA 07/12/24 00:00 IMPRESSION: 1. No pulmonary embolism. 2. No acute cardiopulmonary pathology. 3. Cholelithiasis. 4. Healing left ninth rib fracture. 5. Highly suggestive acute fracture of the T7. 6. Fracture left proximal humerus. Head CT 07/12/24 05:59 IMPRESSION: 1. No acute intracranial abnormality. Shoulder X-Ray 07/14/24 12:04 Impression: Comminuted, displaced, probable subacute fracture of the surgical neck of the left humerus. Labs Labs: Laboratory Results - last 24 hr 07/15/24 05:37 WBC 4.4 L RBC 3.43 L Hgb 11.1 L Hct 34.8 L MCV 101.5 H MCH 32.4 MCHC 31.9 L RDW 13.2 Plt Count 197 MPV 10.6 H Immature Gran % (Auto) 0.2 Neut % (Auto) 42.3 L Lymph % (Auto) 34.9 [place] % (Auto) 16.9 H Eos % (Auto) 5.5 H Baso % (Auto) 0.2 Lymph # (Auto) 1.53 [place] # (Auto) 0.7 H Eos # (Auto) 0.2 Baso # (Auto) 0.0 Abs Immat Gran (auto) 0.01 Absolute Neuts (auto) 1.9 Absolute Nucleated RBC 0.000 Nucleated RBC % 0.0 Sodium 140 Potassium 4.0 Chloride 96 L Carbon Dioxide 35 H Anion Gap 9 BUN 45 H Creatinine 1.71 H Estim Creat Clear Calc 26 Estimated GFR 29 L Glucose 101 Calcium 8.6 Magnesium 2.1 Total Bilirubin 0.7 AST 19 ALT 11 Alkaline Phosphatase 82 Total Protein 6.0 L Albumin 3.2 L Quality VTE Prophylaxis VTE prophylaxis: mechanical ordered and pharmacologic ordered
[2024-07-15 13:54] VITALS: BP 124/63; PULSE 70; RESP 16; TEMP 36.1; O2SAT 97
[2024-07-15] MEDS: ATORVASTATIN 10 MG TABLET PO (17:06)
[2024-07-15 21:10] VITALS: BP 108/57; PULSE 70; RESP 16; TEMP 36.7; O2SAT 93
[2024-07-16] MEDS: SODIUM CHLORIDE 0.9% IV 1,000 ML 125 ML IV CONT (05:00)
[2024-07-16] MEDS: LEVOTHYROXINE SODIUM 75 MCG TABLET PO (05:00)
[2024-07-16 05:28] VITALS: BP 145/88; PULSE 68; RESP 16; TEMP 36.5; O2SAT 98
[2024-07-16 06:49] LABS: Basophils Percent Auto 0.2 % (0.2-1.2); Eosinophils Absolute Auto 0.2 K/mm3 (0-0.3); Eosinophils Percent Auto 4.8 % (0-4.4); Hematocrit 33.7 % (37.0-47.0); Hemoglobin 10.4 g/dL (12.0-15.0); Immature Granulocyte Absolute 0.01 K/mm3 (0.00-0.031); Immature Granulocyte Percent A 0.2 % (0-0.5); Lymphocytes Absolute Auto 1.75 K/mm3 (0.9-3.2); Lymphocytes Percent Auto 38.4 % (18.3-44.2); Mean Corpuscular HGB Conc 30.9 g/dl (32-36); Mean Corpuscular Hemoglobin 31.9 pg (26-34); Mean Corpuscular Volume 103.4 fl (80-100); Mean Platelet Volume 10.6 fl (7.4-10.4); Monocytes Absolute Auto 0.6 K/mm3 (0.1-0.6); Monocytes Percent Auto 12.5 % (2.6-8.5); Neutrophils Percent Auto 43.9 % (45.5-73.1); Platelet Count Result 195 k/mm3 (150-375); Red Blood Count 3.26 M/mm3 (4.2-5.4); Red Cell Distribution Width 13.2 % (11.5-14.5); White Blood Count 4.6 K/mm3 (4.5-10.0)
[2024-07-16 07:03] LABS: Alanine Aminotransferase 10 U/L (6-35); Albumin Level 3.1 g/dL (3.5-5.1); Alkaline Phosphatase 84 U/L (38-126); Anion Gap 4 mmol/L (4-12); Aspartate Amino Transferase 22 U/L (14-36); Bilirubin,Total 0.8 mg/dL (0.2-1.3); Blood Urea Nitrogen 30 mg/dL (7-17); Calcium 8.4 mg/dL (8.4-10.2); Carbon Dioxide 33 mmol/L (22-30); Chloride 103 mmol/L (98-107); Estimated CRCL calculation 40 ml/min; Estimated Glomerular Filt Rate 48; Glucose 100 mg/dL (65-110); Magnesium 2.2 mg/dL (1.6-2.3); Potassium 4.2 mmol/L (3.4-5.0); Sodium 140 mmol/L (137-145)
[2024-07-16 08:00] VITALS: O2SAT 98
[2024-07-16] MEDS: FERROUS SULFATE 325 MG TABLET DR BY MOUTH (08:13)
[2024-07-16] MEDS: DULoxetine HCL 60 MG CAPSULE.DR PO (08:13)
[2024-07-16] MEDS: ASPIRIN 81 MG ENTERIC TABLET PO (08:13)
[2024-07-16] MEDS: OSELTAMIVIR PHOSPHATE 30 MG CAPSULE PO (08:13)
[2024-07-16] MEDS: CYANOCOBALAMIN 1,000 MCG TABLET 1000 MCG PO (08:13)
[2024-07-16] MEDS: PANTOPRAZOLE 40 MG TABLET PO (08:13)
[2024-07-16] MEDS: GABAPENTIN 100 MG CAPSULE 200 MG PO (08:13)
[2024-07-16] MEDS: DICLOFENAC SOD 25 MG TABLET.EC 50 MG PO ×2 (08:13→12:11)
[2024-07-16] MEDS: OPTI-GEN TAB 1 TABLET PO (08:13)
[2024-07-16] MEDS: SPIRONOLACTONE 25 MG TABLET PO (08:13)
[2024-07-16] MEDS: CHOLECALCIFEROL 400 UNITS TABLET (VIT D) PO (08:14)
[2024-07-16] MEDS: DOCUSATE SODIUM 100 MG CAPSULE PO (08:14)
[2024-07-16] MEDS: amLODIPine BESYLATE 5 MG TABLET PO (08:14)
[2024-07-16] MEDS: HEPARIN SODIUM 5,000 UNITS/ML VIAL 5000 UNITS SUB-Q (08:14)
[2024-07-16] MEDS: METOPROLOL SUCCINATE EXT REL 50 MG TABCR PO (08:14)
--- NOTE | 2024-07-16 10:56 | PM.DS ---
DS: Admitting Diagnosis Discharge Date 07/16/24 Admitting Diagnosis Shortness of breath, leg swelling DS: Discharge Diagnosis Discharge Diagnosis (1) CHF exacerbation: Code(s): I50.9 - Heart failure, unspecified Status: Acute (2) NSTEMI (non-ST elevated myocardial infarction): Code(s): I21.4 - Non-ST elevation (NSTEMI) myocardial infarction Status: Acute (3) Influenza A: Code(s): J10.1 - Influenza due to other identified influenza virus with other respiratory manifestations Status: Acute DS: Summary Hospital Course Hospital Course: 84-year-old female resident of assisted was brought emergency department with shortness of breath is found to have a influenza A, started the patient on Tamiflu, and respiratory droplet a precaution, today patient states cough and wheezing, are better and does feel well, however patient had been diuresed and Scr is rising to 1.71 to 131 upon arrival, will stop Lasix and gently hydrate and monitor her kidney function, the patient further recommendation to follow. also upon arrival chest x-ray showed old left shoulder fracture which 1 yr old, had been treated in the past with PT, seen by ortheopedic service and does not recommend any further treatment. patient is clinically stable, will discharge patient today. Time Spent with Patient Time attestation: Total time spent providing and/or coordinating discharge services: DS: Data Data Completed and Pending Labs on day of discharge: Labs from last 24 hours 07/16/24 06:12 WBC 4.6 RBC 3.26 L Hgb 10.4 L Hct 33.7 L MCV 103.4 H MCH 31.9 MCHC 30.9 L RDW 13.2 Plt Count 195 MPV 10.6 H Immature Gran % (Auto) 0.2 Neut % (Auto) 43.9 L Lymph % (Auto) 38.4 [place] % (Auto) 12.5 H Eos % (Auto) 4.8 H Baso % (Auto) 0.2 Lymph # (Auto) 1.75 [place] # (Auto) 0.6 Eos # (Auto) 0.2 Baso # (Auto) 0.0 Abs Immat Gran (auto) 0.01 Absolute Neuts (auto) 2.0 Absolute Nucleated RBC 0.000 Nucleated RBC % 0.0 Sodium 140 Potassium 4.2 Chloride 103 Carbon Dioxide 33 H Anion Gap 4 BUN 30 H D Creatinine 1.10 H Estim Creat Clear Calc 40 Estimated GFR 48 L Glucose 100 Calcium 8.4 Magnesium 2.2 Total Bilirubin 0.8 AST 22 ALT 10 Alkaline Phosphatase 84 Total Protein 6.0 L Albumin 3.1 L Discharge Plan Discharge Attending physician on discharge: Deshawn Galvin Consulting providers: Octavio Cunha; Guilherme King; Dayami Portillo; Barak Spence Rafe M.; Judy Lee; Ramos Hammond; Vu Shafer; Terry Anderson Discharging Clinician: Dave Prescott Patient Disposition: SNF Activity: as tolerated Diet: heart healthy Discharge Instructions: patient is instructed keep herself hydrated, follow up with her primary care provider as soon as possible. Patient Instructions: Oseltamivir (By mouth), Heart Failure (DC), Heart Failure (GEN) Patient Language: Malay Stand Alone Forms: General Discharge Information Follow-up/Referrals: Octavio Cunha MD [Physician] - UNKNOWN,DOCTOR [Primary Care Provider] - Discharge Medications: New dextromethorphan-guaifenesin 10-100 mg/5 mL Syrup 10 ml PO Q4H PRN (Reason: Cough) Qty: 237 0RF ipratropium-albuterol 0.5 mg-3 mg(2.5 mg base)/3 mL Solution For Nebulization 3 ml inhalation Q4HRT PRN (Reason: shortness of breath/Wheezing) Qty: 30 0RF melatonin 5 mg Tablet 5 mg PO HS PRN (Reason: Insomnia) Qty: 30 0RF oseltamivir [Tamiflu] 30 mg Capsule 30 mg PO Q12HR Qty: 2 0RF Continued acetaminophen 325 mg capsule 650 mg PO Q4H PRN (Reason: pain) amlodipine 5 mg tablet 5 mg PO DAILY aspirin 81 mg tablet,delayed release (DR/EC) 81 mg PO DAILY atorvastatin 10 mg tablet 10 mg PO QPM cyanocobalamin (vitamin B-12) 1,000 mcg capsule 1,000 mcg PO EVERY OTHER DAY diclofenac sodium 50 mg tablet,delayed release (DR/EC) 50 mg PO TID docusate sodium 100 mg capsule 100 mg PO DAILY PRN (Reason: constipation) duloxetine 60 mg capsule,delayed release(DR/EC) 60 mg PO DAILY ferrous sulfate [FeroSul] 325 mg (65 mg iron) tablet 325 mg PO EVERY OTHER DAY gabapentin 100 mg capsule 200 mg PO BID Gemtesa 75 mg tablet 75 mg PO DAILY levothyroxine 75 mcg tablet 75 mcg PO DAILY metoprolol succinate 50 mg tablet extended release 24 hr 50 mg PO DAILY polyethylene glycol 3350 17 gram/dose powder 17 g PO DAILY PRN (Reason: constipation) Ocuvite with Lutein 300 mcg-200 mg-27 mg-2 mg tablet 1 tablet PO BID Rx Instructions: administer after a meal omeprazole 40 mg capsule,delayed release(DR/EC) 40 mg PO DAILY ondansetron 4 mg tablet,disintegrating 4 mg PO Q6H PRN (Reason: nausea and vomiting) spironolactone 25 mg tablet 25 mg PO DAILY cholecalciferol (vitamin D3) [Vitamin D3] 10 mcg (400 unit) tablet 10 mcg PO DAILY Date of admission: 07/12/24 09:16 Primary Care Provider: UNKNOWN,DOCTOR Admitting Provider: Deshawn Galvin Attending physician on admission: Dave Prescott Condition: Stable
[2024-07-16 10:59] VITALS: O2SAT 95
[2024-07-16 14:00] VITALS: BP 100/86; PULSE 68; RESP 18; TEMP 36.2; O2SAT 98
[2024-07-25 08:28] LABS: Troponin I 0.036 ng/mL (0.000-0.034)
== END 2024-07-16 14:30 | DRG 280 ==
LOC: ANHED 21:18 → ANHIMU 07-12 02:02 → ANH3MEDSUR 07-14 11:47 → ANHIMU 07-18 13:20
PROVIDERS: Admitting Provider Internal Medicine; Emergency Provider Student in an Organized Health Care Education/Training Program; Visit Provider Family Medicine
DX: I11.0 Hypertensive heart disease with heart failure (principal); G93.41 Metabolic encephalopathy; I21.A1 Myocardial infarction type 2; J96.01 Acute respiratory failure with hypoxia; Z68.41 Body mass index [BMI] 40.0-44.9, adult; I50.9 Heart failure, unspecified; S22.32XD Fracture of one rib, left side, subsequent encounter for fracture with routine healing; S42.212D Unspecified displaced fracture of surgical neck of left humerus, subsequent encounter for fracture with routine healing; J10.1 Influenza due to other identified influenza virus with other respiratory manifestations; X58.XXXD Exposure to other specified factors, subsequent encounter; K21.9 Gastro-esophageal reflux disease without esophagitis; E78.5 Hyperlipidemia, unspecified; D50.9 Iron deficiency anemia, unspecified; R29.6 Repeated falls; E03.9 Hypothyroidism, unspecified; E66.01 Morbid (severe) obesity due to excess calories; Z99.3 Dependence on wheelchair
CPT/HCPCS: 36415; 70450; 71045; 71275; 73030; 80053; 81001; 82140; 82803; 83036; 83605; 83735; 83880; 84484; 85025; 85380; 85610; 85730; 87636; 93005; 93306; 96374; 96375; 97161; 97165; 99285; A4565; A9270; G0378; J1644; J1940; J7030; Q9967